=== PATIENT | male | born 1940 | race Caucasian/White ===

== ENCOUNTER → 2019-08-03 09:02 | Outpatient (CLI) | payer MEDICARE, SELFPAY ==
--- NOTE | 2019-08-03 | DI.US.S_ITS ---
PROCEDURE: US RETRO PERITONEAL LIMITED INDICATIONS: AAA TECHNIQUE: Real time scanning was performed of the aorta and iliac arteries, with image documentation. COMPARISON: None. FINDINGS: Aorta: Proximal aortic diameter measures 3.1 x 3 cm. The mid aorta is not seen. Distal aortic diameter is 3.1 by 3.1 cm. Iliac arteries: Right common iliac artery measures 1.6 cm. Left common iliac artery measures 1.6 cm. This study is limited by body habitus. 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 The mid aorta is not seen. Dictated by: Thaddeus Sheldon M.D. on 08/03/2019 at 11:37 Approved by: Thaddeus Sheldon M.D. on 08/03/2019 at 11:40
== END ==
PROVIDERS: Referring Provider Family Medicine; Visit Provider Family Medicine
DX: Z13.6 Encounter for screening for cardiovascular disorders (principal); I71.4 Abdominal aortic aneurysm, without rupture
CPT/HCPCS: 76775

== ENCOUNTER 2021-07-28 08:54 | Inpatient (IN) | payer MEDICARE, SELFPAY ==
[2021-07-28] VITALS (43 sets, daily range): BP systolic 139–218; BP diastolic 65–122; PULSE 58–87; RESP 15–19; TEMP 36.3–37.1; O2SAT 93–99; BMI 31.7; BMI 31.1
--- NOTE | 2021-07-28 09:10 | ED.GENADULT ---
HPI - General Adult General Chief complaint: GI Bleed Stated complaint: Vomiting- looks like coffee grounds Time Seen by Provider: 07/28/21 09:06 Exam Initial Vital Signs Initial Vital Signs: Vital Signs Temperature 98.4 F 07/28/21 09:17 Pulse Rate 62 07/28/21 09:17 Respiratory Rate 16 07/28/21 09:17 Blood Pressure 139/65 07/28/21 09:17 Pulse Oximetry 97 07/28/21 09:17 Oxygen Delivery Method 07/28/21 09:17 Course Orders Ordered: ED Orders 07/28/21 09:21 COVID19 -Nasal RAPID/Pre-Proc Stat Complete Blood Count AUTO DIFF Stat Comprehensive Metabolic Panel Stat Partial Thromboplastin Time Stat Prothrombin Time INR Stat Type and Screen Stat EKG-12 Lead Stat 07/28/21 09:25 COVID19 -Nasal RAPID/Pre-Proc Stat Comprehensive Metabolic Panel Stat Lipase Stat Magnesium Stat NT-proBNP (BNP-Adult 18+) Stat Troponin I Stat Sodium Chloride (Normal Saline 0.9%) 1,000 mls @ 150 mls/hr IV CONT LUISA Discontinued Medications Pantoprazole Sodium (Pantoprazole 40 Mg Vial) 80 mg IV NOW ONE Stop: 07/28/21 09:26 Vital Signs Vital signs: Vital Signs - 8 hr 07/28/21 09:17 Temperature 98.4 F Pulse Rate 62 Respiratory Rate 16 Blood Pressure 139/65 Pulse Oximetry 97 Oxygen Delivery Method Room Air Discharge Plan Departure Referrals: Albert Sanchez DO [Primary Care Provider] -
--- NOTE | 2021-07-28 09:31 | ED.GENADULT ---
HPI - General Adult General Chief complaint: GI Bleed Stated complaint: Vomiting- looks like coffee grounds Time Seen by Provider: 07/28/21 09:06 History of Present Illness HPI narrative: 81-year-old gentleman with a history of coronary artery disease post CABG currently on Plavix, hypertension, hyperlipidemia, diabetes, hypothyroidism presents with complaints of coffee-ground emesis. Pain is reports significant upper respiratory viral symptoms in early May of this year that they assumed was COVID. Both of them recovered appropriately however shortly after that he developed intermittent episodes of vomiting and diarrhea. He will have 3-4 days of symptoms 3-4 days of feeling well. He has been seen by his primary care physician and has an appointment scheduled with outpatient GI on August 06. He has had stool studies, reports 20 lb weight loss since May, last week had a CT scan of the chest abdomen and pelvis done at [facility] that did not show any obvious masses tumors or reasons for his symptoms. He is currently on both Plavix and baby aspirin. Yesterday he noted that he had some dark emesis and this morning had quite a bit more of coffee-ground emesis with an episode of vomiting. He also notes that he has been having loose stools and that they are black. The black stools and coffee-ground emesis are new developments for him over these last months with the intermittent vomiting and diarrhea. Does not report fevers, cough, chills, chest pain, orthopnea or dyspnea. He has had no headaches or neurologic complaints. Today he simply states that he feels weak in his is concerned with the coffee-ground emesis Related Data Home Medications Medication Instructions Recorded Confirmed amlodipine 10 mg tablet (Norvasc) 10 tab PO 1XD 07/28/21 07/28/21 carvedilol 12.5 mg tablet (Coreg) 12.5 tab PO 2XD 07/28/21 07/28/21 clopidogrel 75 mg tablet (Plavix) 75 tab PO 1XD 07/28/21 07/28/21 doxazosin 8 mg tablet (Cardura) 8 tab PO 1XD 07/28/21 07/28/21 dulaglutide 1.5 mg/0.5 mL 1.5 ea SUBCUT WEEKLY 07/28/21 07/28/21 subcutaneous pen injector (Trulicity) furosemide 20 mg tablet (Lasix) 20 tab PO 1XD 07/28/21 07/28/21 insulin glargine 100 unit/mL (3 20 ea SUBCUT 1XD 07/28/21 07/28/21 mL) subcutaneous pen (Lantus Solostar U-100 Insulin) isosorbide mononitrate 30 mg 30 tab PO 1XD 07/28/21 07/28/21 tablet,extended release 24 hr losartan 100 mg tablet 100 tab PO 1XD 07/28/21 07/28/21 metformin 500 mg tablet 500 tab PO 1XD 07/28/21 07/28/21 ondansetron HCl 8 mg tablet 8 tab PO 1-2XD PRN Nausea 07/28/21 07/28/21 pravastatin 80 mg tablet 80 tab PO 1XD 07/28/21 07/28/21 Allergies Allergy/AdvReac Type Severity Reaction Status Date / Time No Known Drug Allergies Allergy Verified 07/28/21 11:31 Review of Systems Review of Systems Narrative: Remainder of complete review of systems is otherwise unremarkable except for that included in the HPI. Patient History Medical History (Updated 07/28/21 @ 09:38 by Cecille Thao MD) Coronary artery disease Hyperlipidemia Hypertension Type 2 diabetes mellitus Surgical History (Updated 07/28/21 @ 09:34 by Cecille Thao MD) History of coronary artery bypass graft x 3 Exam Initial Vital Signs Initial Vital Signs: Vital Signs Temperature 98.4 F 07/28/21 09:17 Pulse Rate 62 07/28/21 09:17 Respiratory Rate 16 07/28/21 09:17 Blood Pressure 139/65 07/28/21 09:17 Pulse Oximetry 97 07/28/21 09:17 Oxygen Delivery Method 07/28/21 09:17 General: Pale and appears fatigued but otherwise in no acute distress. Well-nourished well-developed HEENT: Moist mucous membranes, normal sclera with reactive pupils, Neck: No JVD, supple Respiratory: Lungs are clear to auscultation, no wheezing no rales no rhonchi. Full and symmetrical air movement Cardiac: Regular rate and rhythm no murmurs no bruits Abdomen: Soft, nontender, good bowel tones, no flank pain Skin: Pale, Warm and dry, no rashes Neurologic: Globally weak but Grossly neurologically intact with no obvious asymmetries or abnormalities Extremities: No trauma, well perfused Psych: Cooperative, appropriate insight and affect Course Orders Ordered: ED Orders 07/28/21 09:15 Complete Blood Count AUTO DIFF Stat Comprehensive Metabolic Panel Stat Comprehensive Metabolic Panel Stat Lipase Stat Magnesium Stat NT-proBNP (BNP-Adult 18+) Stat PRBC [Packed Cells] Stat Partial Thromboplastin Time Stat Prothrombin Time INR Stat Troponin I Stat Type and Screen Stat 07/28/21 09:21 EKG-12 Lead Stat 07/28/21 11:14 Consult to Tele-lease analyst Routine 07/28/21 11:17 COVID19 -Nasal RAPID/Pre-Proc Stat 07/28/21 11:22 Consult to Physician Stat 07/28/21 12:23 Consult to General Surgery Stat 07/28/21 14:17 Consult to Physician Stat Carvedilol (Carvedilol 12.5 Mg Tablet) 12.5 mg PO NOW LUISA Dextrose (Dextrose 50 % In Water 25 Gm/50 Ml Syringe) 25 gm IV PRN PRN; Protocol PRN Reason: Hypoglycemia Doxazosin Mesylate (Doxazosin 4 Mg Tablet) 4 mg PO DAILY LUISA Sodium Chloride (Normal Saline 0.9%) 1,000 mls @ 150 mls/hr IV CONT LUISA Last Infusion: 07/28/21 11:10 Dose: 0 mls/hr Documented By: Admin: 07/28/21 10:09 Dose: 150 mls/hr Documented By: CTS Sodium Chloride (Normal Saline 0.9%) 1,000 mls @ 100 mls/hr IV CONT LUISA Insulin Human Lispro (Insulin Lispro 100 Unit/Ml 3ml Vial) 0 unit SUBCUT Q6H LUISA; Protocol Last Admin: 07/28/21 13:54 Dose: Not Given Documented By: AT Isosorbide Mononitrate (Isosorbide Mononitrate 20 Mg Tablet) 30 mg PO 0700 LUISA Pantoprazole Sodium (Pantoprazole 40 Mg Vial) 40 mg IV BID LUISA Pravastatin Sodium (Pravastatin 20 Mg Tablet) 80 mg PO BEDTIME LUISA Discontinued Medications Amlodipine Besylate (Amlodipine 5 Mg Tablet) 10 mg PO NOW ONE Stop: 07/28/21 10:57 Last Admin: 07/28/21 11:32 Dose: 10 mg Documented By: AT Furosemide (Furosemide 40 Mg/4 Ml Vial) 20 mg IV NOW ONE Stop: 07/28/21 10:38 Last Admin: 07/28/21 13:10 Dose: 20 mg Documented By: AT Losartan Potassium (Losartan 50 Mg Tablet) 100 mg PO NOW ONE Stop: 07/28/21 10:57 Last Admin: 07/28/21 11:32 Dose: 100 mg Documented By: AT Pantoprazole Sodium (Pantoprazole 40 Mg Vial) 80 mg IV NOW ONE Stop: 07/28/21 09:26 Last Admin: 07/28/21 10:09 Dose: 80 mg Documented By: CTS Vital Signs Vital signs: Vital Signs - 8 hr 07/28/21 09:17 07/28/21 11:09 07/28/21 09:58 Temperature 98.4 F 97.4 F L Pulse Rate 62 65 59 L Respiratory Rate 16 16 Blood Pressure 139/65 184/107 H Pulse Oximetry 97 97 Oxygen Delivery Method Room Air 07/28/21 09:59 07/28/21 09:59 07/28/21 10:00 Temperature Pulse Rate 59 L Respiratory Rate Blood Pressure 189/75 H 176/72 H Pulse Oximetry 95 Oxygen Delivery Method 07/28/21 10:00 07/28/21 10:30 07/28/21 10:31 Temperature Pulse Rate 61 63 Respiratory Rate Blood Pressure 197/80 H Pulse Oximetry 95 97 Oxygen Delivery Method 07/28/21 10:31 07/28/21 11:00 07/28/21 11:01 Temperature Pulse Rate 60 58 L Respiratory Rate Blood Pressure 184/107 H Pulse Oximetry 95 97 Oxygen Delivery Method 07/28/21 11:01 07/28/21 13:00 07/28/21 11:27 Temperature 97.5 F L 97.5 F L Pulse Rate 59 L 60 60 Respiratory Rate 18 16 Blood Pressure 192/80 H 212/82 H Pulse Oximetry 95 Oxygen Delivery Method 07/28/21 11:29 07/28/21 11:29 07/28/21 11:30 Temperature Pulse Rate 58 L 60 Respiratory Rate Blood Pressure 212/82 H Pulse Oximetry 97 97 Oxygen Delivery Method 07/28/21 12:00 07/28/21 12:01 07/28/21 12:01 Temperature Pulse Rate 60 62 Respiratory Rate Blood Pressure 188/122 H Pulse Oximetry 97 98 Oxygen Delivery Method 07/28/21 12:30 07/28/21 12:31 07/28/21 12:31 Temperature Pulse Rate 58 L 60 Respiratory Rate Blood Pressure 201/79 H Pulse Oximetry 97 98 Oxygen Delivery Method 07/28/21 13:00 07/28/21 13:01 07/28/21 13:01 Temperature Pulse Rate 67 63 Respiratory Rate Blood Pressure 192/80 H Pulse Oximetry 99 98 Oxygen Delivery Method 07/28/21 13:47 07/28/21 14:03 Temperature 98.4 F 97.5 F L Pulse Rate 62 69 Respiratory Rate 16 18 Blood Pressure 178/75 H 179/80 H Pulse Oximetry Oxygen Delivery Method Medical Decision Making Medical Records Medical records narrative: Report of a CT chest abdomen pelvis imaging from 1 week ago has been requested Lab Data Result diagrams: 07/28/21 09:15 07/28/21 09:15 Labs: Lab Results 07/28/21 07/28/21 07/28/21 Range/Units 09:15 09:15 09:15 WBC 16.7 H (4.5-11.0) X10^3/uL RBC 2.64 L (4.5-5.9) X10^6/uL Hgb 7.7 L (13.5-17.5) g/dL Hct 23.3 L (41-53) % MCV 88.1 (80-100) fL MCH 29.1 (26-34) PG MCHC 33.0 (30-36) % RDW 15.1 H (11.6-14.8) % Plt Count 293 (150-400) X10^3/uL Neut % (Auto) 80.9 H (50-75) % Lymph % (Auto) 13.2 L (25-40) % [place] % (Auto) 4.5 (3-14) % Eos % (Auto) 0.4 L (2-4) % Baso % (Auto) 1.0 (0-2) % Neut # (Auto) 59493 H (1411-5111) /uL Lymph # (Auto) 2200 (2228-5951) /uL [place] # (Auto) 700 (0-900) /uL Eos # (Auto) 100 (0-450) /uL Baso # (Auto) 200 H (0-100) /uL PT 12.6 (10.1-12.7) SECONDS INR 1.1 (0.9-1.3) APTT 29 (26.4-36.2) SECONDS Sodium 134 L (137-145) mmol/L Potassium 5.5 H (3.4-5.1) mmol/L Chloride 104 (98-107) mmol/L Carbon Dioxide 22 (22-32) mmol/L BUN 84 H (9-20) mg/dL Creatinine 1.80 H (0.66-1.25) mg/dL Estimated GFR 37 L (>60) mL/min BUN/Creatinine Ratio 46.7 H (6-22) Glucose 215 H (80-110) mg/dL Calcium 8.3 L (8.4-10.2) mg/dL Magnesium (1.6-2.3) mg/dL Total Bilirubin 0.2 (0.2-1.3) mg/dL AST 24 (17-59) IU/L ALT 25 (<50) IU/L Alkaline Phosphatase 72 (38-126) U/L Troponin I (0.01-0.034) ng/mL NT-Pro-B Natriuret Pep (<450) pg/mL Total Protein 5.8 L (6.3-8.2) g/dL Albumin 3.2 L (3.5-5.0) g/dL Globulin 2.6 (1.7-4.1) g/dL Albumin/Globulin Ratio 1.2 (1.0-2.8) Lipase (23-300) U/L SARS-CoV-2 (PCR) (Negative) Blood Type Antibody Screen Crossmatch 07/28/21 07/28/21 07/28/21 Range/Units 09:15 09:15 11:17 WBC (4.5-11.0) X10^3/uL RBC (4.5-5.9) X10^6/uL Hgb (13.5-17.5) g/dL Hct (41-53) % MCV (80-100) fL MCH (26-34) PG MCHC (30-36) % RDW (11.6-14.8) % Plt Count (150-400) X10^3/uL Neut % (Auto) (50-75) % Lymph % (Auto) (25-40) % [place] % (Auto) (3-14) % Eos % (Auto) (2-4) % Baso % (Auto) (0-2) % Neut # (Auto) (4633-8228) /uL Lymph # (Auto) (9253-8533) /uL [place] # (Auto) (0-900) /uL Eos # (Auto) (0-450) /uL Baso # (Auto) (0-100) /uL PT (10.1-12.7) SECONDS INR (0.9-1.3) APTT (26.4-36.2) SECONDS Sodium 133 L (137-145) mmol/L Potassium 5.4 H (3.4-5.1) mmol/L Chloride 104 (98-107) mmol/L Carbon Dioxide 23 (22-32) mmol/L BUN 81 H (9-20) mg/dL Creatinine 1.88 H (0.66-1.25) mg/dL Estimated GFR 35 L (>60) mL/min BUN/Creatinine Ratio 43.1 H (6-22) Glucose 219 H (80-110) mg/dL Calcium 8.3 L (8.4-10.2) mg/dL Magnesium 1.8 (1.6-2.3) mg/dL Total Bilirubin 0.3 (0.2-1.3) mg/dL AST 25 (17-59) IU/L ALT 26 (<50) IU/L Alkaline Phosphatase 72 (38-126) U/L Troponin I 0.016 (0.01-0.034) ng/mL NT-Pro-B Natriuret Pep 2060 H (<450) pg/mL Total Protein 6.4 (6.3-8.2) g/dL Albumin 3.4 L (3.5-5.0) g/dL Globulin 3.0 (1.7-4.1) g/dL Albumin/Globulin Ratio 1.1 (1.0-2.8) Lipase 86 (23-300) U/L SARS-CoV-2 (PCR) Negative (Negative) Blood Type O Positive Antibody Screen Negative Crossmatch See Detail Point of Care Testing Glucose POC 192 Urine Dip Bedside Urine Glucose Negative Bedside Urine Bilirubin - Negative Bedside Urine Ketone - Negative Urine Specific [place] 1.015 Bedside Urine Occult Blood - Negative Bedside Urine pH 6.0 Bedside Urine Protein - Negative Bedside Urine Urobilinogen - Negative Bedside Urine Nitrite - Negative Bedside Urine Leukocytes - Negative Esterase Point of care testing: Point of Care Testing Glucose POC 192 Urine Dip Bedside Urine Glucose Negative Bedside Urine Bilirubin - Negative Bedside Urine Ketone - Negative Urine Specific [place] 1.015 Bedside Urine Occult Blood - Negative Bedside Urine pH 6.0 Bedside Urine Protein - Negative Bedside Urine Urobilinogen - Negative Bedside Urine Nitrite - Negative Bedside Urine Leukocytes - Negative Esterase ECG Data Interpretation: Sinus bradycardia at 59. Right bundle branch block, left anterior fascicular block, left axis deviation, No acute ischemic changes MDM Narrative Medical decision making narrative: 9:50 am care is reviewed with Dr. Flores surgeon. Initial H&H is 7.7 and 23.3. Given his continued bleeding as well as known coronary disease post bypass will opt to transfuse with 2 units. 11am remainder a labs or turn. He does have renal insufficiency with a creatinine at 1.88, it is unclear if this is new. Eron is slightly elevated at 5.4. Will be getting Lasix in between 2 units of packed red blood cells and will see if that reduces his potassium level. He remains relatively hypertensive at this time has not taken his morning amlodipine nor tamsulosin. Given his significant baseline hypertension and absence of hemodynamic instability in light of his upper GI bleed will give him his amlodipine and tamsulosin. Will discuss his care with the hospitalist for admission. Discharge Plan Departure Patient Disposition: Admitted As Inpatient Clinical Impression: Acute upper gastrointestinal bleeding Admit Date/Time: 07/28/21 14:20 Admit Provider: Filiberto Borja
[2021-07-28 09:41] LABS: Add Manual Diff / Slide Review NO; Basophils Absolute Auto 200 /uL (0-100); Eosinophils Absolute Auto 100 /uL (0-450); Eosinophils Percent Auto 0.4 % (2-4); Hematocrit 23.3 % (41-53); Hemoglobin 7.7 g/dL (13.5-17.5); Lymphocytes Absolute Auto 2200 /uL (1100-4500); Lymphocytes Percent Auto 13.2 % (25-40); Mean Corpuscular Hemoglobin 29.1 PG (26-34); Mean Corpuscular Volume 88.1 fL (80-100); Monocytes Absolute Auto 700 /uL (0-900); Monocytes Percent Auto 4.5 % (3-14); Neutrophils Absolute Auto 13500 /uL (1500-7000); Neutrophils Percent Auto 80.9 % (50-75); Platelet Count 293 X10^3/uL (150-400); Red Blood Cell Count 2.64 X10^6/uL (4.5-5.9); Red Cell Distribution Width 15.1 % (11.6-14.8); White Blood Cell Count 16.7 X10^3/uL (4.5-11.0)
[2021-07-28 09:52] LABS: INR 1.1 (0.9-1.3); Prothrombin Time 12.6 SECONDS (10.1-12.7)
[2021-07-28 09:55] LABS: PTT Partial Thromboplastin Tim 29 SECONDS (26.4-36.2)
[2021-07-28 09:57] LABS: Alanine Aminotransferase 26 IU/L (<50); Albumin 3.4 g/dL (3.5-5.0); Albumin Globulin Ratio 1.1 (1.0-2.8); Alkaline Phosphatase 72 U/L (38-126); Aspartate Aminotransferase 25 IU/L (17-59); BUN Creatinine Ratio 43.1 (6-22); Bilirubin Total 0.3 mg/dL (0.2-1.3); Blood Urea Nitrogen 81 mg/dL (9-20); Calcium 8.3 mg/dL (8.4-10.2); Carbon Dioxide 23 mmol/L (22-32); Chloride 104 mmol/L (98-107); Estimated Glomerular Filt Rate 35 mL/min (>60); Glucose 219 mg/dL (80-110); HEMOLYSIS < 15 (0-50); Lipase 86 U/L (23-300); Magnesium 1.8 mg/dL (1.6-2.3); Sodium 133 mmol/L (137-145); Total Protein 6.4 g/dL (6.3-8.2)
[2021-07-28 09:58] LABS: Alanine Aminotransferase 25 IU/L (<50); Albumin 3.2 g/dL (3.5-5.0); Albumin Globulin Ratio 1.2 (1.0-2.8); Alkaline Phosphatase 72 U/L (38-126); Aspartate Aminotransferase 24 IU/L (17-59); BUN Creatinine Ratio 46.7 (6-22); Bilirubin Total 0.2 mg/dL (0.2-1.3); Blood Urea Nitrogen 84 mg/dL (9-20); Calcium 8.3 mg/dL (8.4-10.2); Carbon Dioxide 22 mmol/L (22-32); Chloride 104 mmol/L (98-107); Estimated Glomerular Filt Rate 37 mL/min (>60); Globulin 2.6 g/dL (1.7-4.1); Glucose 215 mg/dL (80-110); HEMOLYSIS < 15 (0-50); Potassium 5.4 mmol/L (3.4-5.1); Potassium 5.5 mmol/L (3.4-5.1); Sodium 134 mmol/L (137-145); Total Protein 5.8 g/dL (6.3-8.2)
[2021-07-28 10:08] LABS: NT-proBNP (BNP-Adult 18+) 2060 pg/mL (<450); Troponin I 0.016 ng/mL (0.01-0.034)
[2021-07-28] MEDS: PANTOPRAZOLE 40 MG VIAL 80 MG IV (10:09)
[2021-07-28] MEDS: SODIUM CHLORIDE 0.9% 1,000 ML 150 ML IV (10:09)
[2021-07-28] MEDS: LOSARTAN 50 MG TABLET 100 MG PO (11:32)
[2021-07-28] MEDS: AMLODIPINE 5 MG TABLET 10 MG PO (11:32)
[2021-07-28 11:36] LABS: COVID19 -Nasal RAPID Negative (Negative)
[2021-07-28] MEDS: FUROSEMIDE 40 MG/4 ML VIAL 20 MG IV (13:10)
--- NOTE | 2021-07-28 14:05 | PM.HP.1 ---
History of Present Illness History of Present Illness Chief complaint: Vomiting- looks like coffee grounds Narrative: CC : coffee ground emesis The patient is 81 y/o male with multiple comorbidities including : CAD, s/p CABG and stent ( 20 and 10 y/ago) on Plavix, HTN, HLD, DM type 2 on insulin, CHF systolic , etc presented to ER with cofee ground emesis this morning. Per him and at bedside he is having GI problems sicne May 2021, he lost 20+ lbs since then and has been done extensive w/u by PCP to r/o pancreatic cancer and other etiologies. His recent bryan CT did not show abnormalities, he has scheduled GI appointment for week from now. 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 They brought this coffee ground emesis in bag to show ER physician. Since he is in ER he did NOT have any other episodes of emesis or diarrhea , black stools etc. He denes abdominal pain, nausea, chest pain,fever, shortness of breath, recent g or sick contacts Patient History Medical History (Updated 07/28/21 @ 09:38 by Cecille Thao MD) Coronary artery disease Hyperlipidemia Hypertension Type 2 diabetes mellitus Surgical History (Updated 07/28/21 @ 09:34 by Cecille Thao MD) History of coronary artery bypass graft x 3 Family & Social History Safety & Behavioral: Feels Safe in Current Yes Environment Been Physically Hurt or No Threatened By a Person Meds Home Medications and Allergies Home Medications Medication Instructions Recorded Confirmed Type amlodipine 10 mg tablet (Norvasc) 10 tab PO 1XD 07/28/21 07/28/21 History carvedilol 12.5 mg tablet (Coreg) 12.5 tab PO 2XD 07/28/21 07/28/21 History clopidogrel 75 mg tablet (Plavix) 75 tab PO 1XD 07/28/21 07/28/21 History doxazosin 8 mg tablet (Cardura) 8 tab PO 1XD 07/28/21 07/28/21 History dulaglutide 1.5 mg/0.5 mL 1.5 ea SUBCUT WEEKLY 07/28/21 07/28/21 History subcutaneous pen injector (Trulicity) furosemide 20 mg tablet (Lasix) 20 tab PO 1XD 07/28/21 07/28/21 History insulin glargine 100 unit/mL (3 20 ea SUBCUT 1XD 07/28/21 07/28/21 History mL) subcutaneous pen (Lantus Solostar U-100 Insulin) isosorbide mononitrate 30 mg 30 tab PO 1XD 07/28/21 07/28/21 History tablet,extended release 24 hr losartan 100 mg tablet 100 tab PO 1XD 07/28/21 07/28/21 History metformin 500 mg tablet 500 tab PO 1XD 07/28/21 07/28/21 History ondansetron HCl 8 mg tablet 8 tab PO 1-2XD PRN Nausea 07/28/21 07/28/21 History pravastatin 80 mg tablet 80 tab PO 1XD 07/28/21 07/28/21 History Allergies Allergy/AdvReac Type Severity Reaction Status Date / Time No Known Drug Allergies Allergy Verified 07/28/21 11:31 Review of Systems Review of Systems ROS: Yes All systems reviewed with the patient and are negative except as otherwise documented Eyes Eyes: Reports as per HPI ENT Ears, Nose, Mouth, and Throat: Yes as per HPI Cardiovascular Cardiovascular: Reports as per HPI Respiratory Respiratory: Reports as per HPI Gastrointestinal Gastrointestinal: Reports as per HPI Genitourinary Genitourinary: Reports as per HPI Musculoskeletal Musculoskeletal: Reports as per HPI Integumentary/Breasts Skin/Breast: Reports as per HPI Neurologic Neurologic: Reports as per HPI Psychiatric Psychiatric: Reports as per HPI Exam Vital Signs (past 8 hours): - 07/28/21 09:17 07/28/21 11:09 07/28/21 09:58 Temperature 98.4 F 97.4 F L Pulse Rate 62 65 59 L Respiratory Rate 16 16 Blood Pressure 139/65 184/107 H Pulse Oximetry 97 97 Oxygen Delivery Method Room Air 07/28/21 09:59 07/28/21 09:59 07/28/21 10:00 Temperature Pulse Rate 59 L Respiratory Rate Blood Pressure 189/75 H 176/72 H Pulse Oximetry 95 Oxygen Delivery Method 07/28/21 10:00 07/28/21 10:30 07/28/21 10:31 Temperature Pulse Rate 61 63 Respiratory Rate Blood Pressure 197/80 H Pulse Oximetry 95 97 Oxygen Delivery Method 07/28/21 10:31 07/28/21 11:00 07/28/21 11:01 Temperature Pulse Rate 60 58 L Respiratory Rate Blood Pressure 184/107 H Pulse Oximetry 95 97 Oxygen Delivery Method 07/28/21 11:01 07/28/21 13:00 07/28/21 11:27 Temperature 97.5 F L 97.5 F L Pulse Rate 59 L 60 60 Respiratory Rate 18 16 Blood Pressure 192/80 H 212/82 H Pulse Oximetry 95 Oxygen Delivery Method 07/28/21 11:29 07/28/21 11:29 07/28/21 11:30 Temperature Pulse Rate 58 L 60 Respiratory Rate Blood Pressure 212/82 H Pulse Oximetry 97 97 Oxygen Delivery Method 07/28/21 12:00 07/28/21 12:01 07/28/21 12:01 Temperature Pulse Rate 60 62 Respiratory Rate Blood Pressure 188/122 H Pulse Oximetry 97 98 Oxygen Delivery Method 07/28/21 12:30 07/28/21 12:31 07/28/21 12:31 Temperature Pulse Rate 58 L 60 Respiratory Rate Blood Pressure 201/79 H Pulse Oximetry 97 98 Oxygen Delivery Method 07/28/21 13:00 07/28/21 13:01 07/28/21 13:01 Temperature Pulse Rate 67 63 Respiratory Rate Blood Pressure 192/80 H Pulse Oximetry 99 98 Oxygen Delivery Method 07/28/21 13:47 Temperature 98.4 F Pulse Rate 62 Respiratory Rate 16 Blood Pressure 178/75 H Pulse Oximetry Oxygen Delivery Method Oxygen Delivery Method Room Air Const General: cooperative and well developed Orientation: alert, awake and oriented x3 HENMT Head: normocephalic and atraumatic Ears: external ears normal Nose: external nose normal Mouth: oral mucosae normal Eyes Pupils: PERRL EOM: EOM intact bilaterally Neck Neck: full ROM and supple Thyroid: thyroid normal Chest Chest: normal inspection of the chest Resp Auscultation: clear to auscultation bilaterally Cardio Rate: regular rate Rhythm: regular rhythm GI Inspection: normal to inspection Palpation: soft and No tender Auscultation: normal bowel sounds Back/Spine/Pelvis Back: normal to inspection Skin General: no rashes or lesions noted Neuro General: patient alert, patient awake, patient oriented x3, gait normal, moves all extremities and no focal motor deficits Cranial Nerves: CN's II-XI intact bilaterally Extrem General: normal to inspection, full ROM and no clubbing, cyanosis or edema Psych Mental Status: mental status grossly normal Mood: congruent mood Affect: normal affect Objective Labs Result Diagrams: 07/28/21 09:15 07/28/21 09:15 Labs: Laboratory Results - last 24 hr 07/28/21 07/28/21 07/28/21 09:15 09:15 09:15 WBC 16.7 H RBC 2.64 L Hgb 7.7 L Hct 23.3 L MCV 88.1 MCH 29.1 MCHC 33.0 RDW 15.1 H Plt Count 293 Neut % (Auto) 80.9 H Lymph % (Auto) 13.2 L [place] % (Auto) 4.5 Eos % (Auto) 0.4 L Baso % (Auto) 1.0 Neut # (Auto) 23039 H Lymph # (Auto) 2200 [place] # (Auto) 700 Eos # (Auto) 100 Baso # (Auto) 200 H PT 12.6 INR 1.1 APTT 29 Sodium 134 L Potassium 5.5 H Chloride 104 Carbon Dioxide 22 BUN 84 H Creatinine 1.80 H Estimated GFR 37 L BUN/Creatinine Ratio 46.7 H Glucose 215 H Calcium 8.3 L Magnesium Total Bilirubin 0.2 AST 24 ALT 25 Alkaline Phosphatase 72 Troponin I NT-Pro-B Natriuret Pep Total Protein 5.8 L Albumin 3.2 L Globulin 2.6 Albumin/Globulin Ratio 1.2 Lipase SARS-CoV-2 (PCR) Blood Type Antibody Screen Crossmatch 07/28/21 07/28/21 07/28/21 09:15 09:15 11:17 WBC RBC Hgb Hct MCV MCH MCHC RDW Plt Count Neut % (Auto) Lymph % (Auto) [place] % (Auto) Eos % (Auto) Baso % (Auto) Neut # (Auto) Lymph # (Auto) [place] # (Auto) Eos # (Auto) Baso # (Auto) PT INR APTT Sodium 133 L Potassium 5.4 H Chloride 104 Carbon Dioxide 23 BUN 81 H Creatinine 1.88 H Estimated GFR 35 L BUN/Creatinine Ratio 43.1 H Glucose 219 H Calcium 8.3 L Magnesium 1.8 Total Bilirubin 0.3 AST 25 ALT 26 Alkaline Phosphatase 72 Troponin I 0.016 NT-Pro-B Natriuret Pep 2060 H Total Protein 6.4 Albumin 3.4 L Globulin 3.0 Albumin/Globulin Ratio 1.1 Lipase 86 SARS-CoV-2 (PCR) Negative Blood Type O Positive Antibody Screen Negative Crossmatch See Detail Assessment & Plan Assessment & Plan narrative: Acute blood loss anemia HGB 7.7 -given 2 units PRBC in ER - continue close monitoring -transfuse if 7 or below -CBC daily Possible GI bleeding -surgery evaluation is pending -surgery notifies by ER physician - pantorpazole IV BID CAD, s/p CABG, s/p stent -telemetry monirtoring - continue BB, stopped plavix CHF systolic -continue ISMN - hold on diauresis HTN -mildly elevated -continue home meds Hyperlipidemia -continue statin DM type 2 -SSI -holding on metformin DVT prophylaxis: SCD Code status: full Discussed in details with ER physician, pt, at bedside Time Spent With Patient Critical Care time: I spent a total of [] minutes of critical care time on this patient's care today; this time is exclusive of procedural time.
--- NOTE | 2021-07-28 17:16 | PM.CALLCOV.1 ---
Call Coverage Note Note Date of Patient Contact: 07/28/21 Narrative of Care Provided: aware of patient and will schedule for EGD Thursday
[2021-07-28] MEDS: SODIUM CHLORIDE 0.9% 1,000 ML 100 ML IV (18:48)
--- NOTE | 2021-07-28 20:48 | PM.CN.EICU ---
History of Present Illness Consult details Chief complaint: Vomiting- looks like coffee grounds Narrative: ?81 y/o male with medical H/o of CHF, CAD s/p CABG and stents on Plavix, HTN, HLD, IDDM, presented to ER with coffee ground emesis yesterday, he has H/o of Wt loss and undergo an extensive work up for malignancy by his PCP, was scheduled to see GI this week. Last emesis episode was black in color. Denies any complain, no abdominal pain. Assessment: Upper GI bleed while on Plavix Acute blood loss anemia H/o of CAD s/p CABG and stents Rec: Continue IV PPI & holding plavix Plan for EGD in am/ Keep NPO except meds No indication for more Blood transfusion Check CBC, CMP, Coags in Am HD stable, BP normal while on antihypertensive SBP was 140 Consider holding some of the antihypertensive if BP softens DVT ppx SCD PFSH Medical History (Updated 07/28/21 @ 09:38 by Cecille Thao MD) Coronary artery disease Hyperlipidemia Hypertension Type 2 diabetes mellitus Surgical History (Updated 07/28/21 @ 09:34 by Cecille Thao MD) History of coronary artery bypass graft x 3 Social History household members: spouse Smoking Status: Former smoker alcohol intake: never Current Medications Current Medications Medications: Home Medications amlodipine 10 mg tablet (Norvasc) 10 tab PO 1XD 07/28/21 [History Confirmed 07/28/21] carvedilol 12.5 mg tablet (Coreg) 12.5 tab PO 2XD 07/28/21 [History Confirmed 07/28/21] clopidogrel 75 mg tablet (Plavix) 75 tab PO 1XD 07/28/21 [History Confirmed 07/28/21] doxazosin 8 mg tablet (Cardura) 8 tab PO 1XD 07/28/21 [History Confirmed 07/28/21] dulaglutide 1.5 mg/0.5 mL subcutaneous pen injector (Trulicity) 1.5 ea SUBCUT WEEKLY 07/28/21 [History Confirmed 07/28/21] furosemide 20 mg tablet (Lasix) 20 tab PO 1XD 07/28/21 [History Confirmed 07/28/21] insulin glargine 100 unit/mL (3 mL) subcutaneous pen (Lantus Solostar U-100 Insulin) 20 ea SUBCUT 1XD 07/28/21 [History Confirmed 07/28/21] isosorbide mononitrate 30 mg tablet,extended release 24 hr 30 tab PO 1XD 07/28/21 [History Confirmed 07/28/21] losartan 100 mg tablet 100 tab PO 1XD 07/28/21 [History Confirmed 07/28/21] metformin 500 mg tablet 500 tab PO 1XD 07/28/21 [History Confirmed 07/28/21] ondansetron HCl 8 mg tablet 8 tab PO 1-2XD PRN Nausea 07/28/21 [History Confirmed 07/28/21] pravastatin 80 mg tablet 80 tab PO 1XD 07/28/21 [History Confirmed 07/28/21] Visit Medications (administered) Generic Name Dose Route Start Last Admin Trade Name Freq PRN Reason Stop Dose Admin Insulin Human Lispro 0 unit 07/28/21 11:30 07/28/21 18:42 Insulin Lispro 100 Unit/Ml 3ml Vial SUBCUT Not Given Q6H [facility] Protocol Exam Vital Signs (past 8 hours): - 07/28/21 13:00 07/28/21 13:00 07/28/21 13:01 Temperature 97.5 F L Pulse Rate 60 67 Respiratory Rate 18 Blood Pressure 192/80 H 192/80 H Pulse Oximetry 99 Oxygen Delivery Method Oxygen Flow Rate 07/28/21 13:01 07/28/21 13:47 07/28/21 14:03 Temperature 98.4 F 97.5 F L Pulse Rate 63 62 69 Respiratory Rate 16 18 Blood Pressure 178/75 H 179/80 H Pulse Oximetry 98 Oxygen Delivery Method Oxygen Flow Rate 07/28/21 15:44 07/28/21 13:30 07/28/21 13:31 Temperature 98.3 F Pulse Rate 62 63 Respiratory Rate 16 Blood Pressure 192/82 H 206/81 H Pulse Oximetry 97 Oxygen Delivery Method Oxygen Flow Rate 07/28/21 13:31 07/28/21 13:44 07/28/21 13:44 Temperature Pulse Rate 61 66 Respiratory Rate Blood Pressure 178/75 H Pulse Oximetry 96 97 Oxygen Delivery Method Oxygen Flow Rate 07/28/21 14:00 07/28/21 14:01 07/28/21 14:01 Temperature Pulse Rate 68 87 Respiratory Rate Blood Pressure 179/80 H Pulse Oximetry 98 99 Oxygen Delivery Method Oxygen Flow Rate 07/28/21 14:30 07/28/21 14:31 07/28/21 14:31 Temperature Pulse Rate 67 66 Respiratory Rate Blood Pressure 171/73 H Pulse Oximetry 96 96 Oxygen Delivery Method Oxygen Flow Rate 07/28/21 15:00 07/28/21 15:01 07/28/21 15:01 Temperature Pulse Rate 64 64 Respiratory Rate Blood Pressure 218/84 H Pulse Oximetry 94 95 Oxygen Delivery Method Oxygen Flow Rate 07/28/21 15:30 07/28/21 15:31 07/28/21 15:40 Temperature Pulse Rate 66 65 64 Respiratory Rate Blood Pressure Pulse Oximetry 96 97 96 Oxygen Delivery Method Oxygen Flow Rate 07/28/21 15:40 07/28/21 16:00 07/28/21 16:01 Temperature Pulse Rate 61 62 Respiratory Rate Blood Pressure 192/82 H Pulse Oximetry 94 96 Oxygen Delivery Method Oxygen Flow Rate 07/28/21 16:01 07/28/21 16:30 07/28/21 16:31 Temperature Pulse Rate 63 Respiratory Rate Blood Pressure 187/78 H 185/78 H Pulse Oximetry 94 Oxygen Delivery Method Oxygen Flow Rate 07/28/21 16:31 07/28/21 17:00 07/28/21 17:01 Temperature Pulse Rate 64 62 Respiratory Rate Blood Pressure 188/74 H Pulse Oximetry 95 93 Oxygen Delivery Method Oxygen Flow Rate 07/28/21 17:01 07/28/21 17:30 07/28/21 17:31 Temperature Pulse Rate 67 66 65 Respiratory Rate Blood Pressure Pulse Oximetry 95 94 95 Oxygen Delivery Method Room Air Oxygen Flow Rate 07/28/21 17:31 07/28/21 18:22 Temperature 98.4 F Pulse Rate 68 Respiratory Rate 19 Blood Pressure 168/74 H 171/73 H Pulse Oximetry 98 Oxygen Delivery Method Oxygen Flow Rate 0 Oxygen Delivery Method Room Air Oxygen Flow Rate 0 Objective Labs Result Diagrams: 07/28/21 09:15 07/28/21 09:15 Labs: Laboratory Results - last 24 hr 07/28/21 07/28/21 07/28/21 09:15 09:15 09:15 WBC 16.7 H RBC 2.64 L Hgb 7.7 L Hct 23.3 L MCV 88.1 MCH 29.1 MCHC 33.0 RDW 15.1 H Plt Count 293 Neut % (Auto) 80.9 H Lymph % (Auto) 13.2 L [place] % (Auto) 4.5 Eos % (Auto) 0.4 L Baso % (Auto) 1.0 Neut # (Auto) 01598 H Lymph # (Auto) 2200 [place] # (Auto) 700 Eos # (Auto) 100 Baso # (Auto) 200 H PT 12.6 INR 1.1 APTT 29 Sodium 134 L Potassium 5.5 H Chloride 104 Carbon Dioxide 22 BUN 84 H Creatinine 1.80 H Estimated GFR 37 L BUN/Creatinine Ratio 46.7 H Glucose 215 H Calcium 8.3 L Magnesium Total Bilirubin 0.2 AST 24 ALT 25 Alkaline Phosphatase 72 Troponin I NT-Pro-B Natriuret Pep Total Protein 5.8 L Albumin 3.2 L Globulin 2.6 Albumin/Globulin Ratio 1.2 Lipase SARS-CoV-2 (PCR) Blood Type Antibody Screen Crossmatch 07/28/21 07/28/21 07/28/21 09:15 09:15 11:17 WBC RBC Hgb Hct MCV MCH MCHC RDW Plt Count Neut % (Auto) Lymph % (Auto) [place] % (Auto) Eos % (Auto) Baso % (Auto) Neut # (Auto) Lymph # (Auto) [place] # (Auto) Eos # (Auto) Baso # (Auto) PT INR APTT Sodium 133 L Potassium 5.4 H Chloride 104 Carbon Dioxide 23 BUN 81 H Creatinine 1.88 H Estimated GFR 35 L BUN/Creatinine Ratio 43.1 H Glucose 219 H Calcium 8.3 L Magnesium 1.8 Total Bilirubin 0.3 AST 25 ALT 26 Alkaline Phosphatase 72 Troponin I 0.016 NT-Pro-B Natriuret Pep 2060 H Total Protein 6.4 Albumin 3.4 L Globulin 3.0 Albumin/Globulin Ratio 1.1 Lipase 86 SARS-CoV-2 (PCR) Negative Blood Type O Positive Antibody Screen Negative Crossmatch See Detail Assessment & Plan Time Spent With Patient Critical Care time: I spent a total of [] minutes of critical care time on this patient's care today; this time is exclusive of procedural time.
[2021-07-28] MEDS: PRAVASTATIN 20 MG TABLET 80 MG PO (21:31)
[2021-07-28] MEDS: PANTOPRAZOLE 40 MG VIAL IV (21:32)
[2021-07-29] VITALS (15 sets, daily range): BP systolic 115–190; BP diastolic 39–84; PULSE 57–77; RESP 15–19; TEMP 36.2–36.8; O2SAT 90–98; BMI 31.1
--- NOTE | 2021-07-29 | PATH_ITS ---
[facility] Accession Number: [id number] . 01 Material submitted: . stomach - PYLORIC MUCOSA . 01 Diagnosis: Stomach, Pyloric Mucosae, Biopsy: Body-type mucosa with mild chronic inflammation. Negative for Helicobacter by immunohistochemistry. Negative for intestinal metaplasia. Negative for dysplasia and malignancy. MRV 08/01/2021 1425 Local . 01 Electronically signed: . Niharika Wallace MD, Pathologist NPI- [id number] . 01 Gross description: . PYLORIC MUCOSA: Received in formalin is 1 fragment(s) of chen, soft tissue measuring 0.3 x 0.3 x 0.2 cm submitted entirely in 1 cassette(s) /CPE 07/30/2021 0512 Local . 01 Microscopic: . An immunohistochemical stain was performed to evaluate for Helicobacter organisms and is negative. The control stain showed appropriate reactivity. . * This test was developed and its performance characteristics determined by [facility]. It has not been cleared or approved by the U.S. Food and Drug Administration. The FDA has determined that such clearance or approval is not necessary. This test is used for clinical purposes. It should not be regarded as investigational or for research. . 01 Pathologist provided ICD-10: R10.9 . 01 CPT . 421635, [id number] Specimen Comment: A courtesy copy of this report has been sent to [phone] Performed at: 01 [facility] [address] [place] [address], [place], [place] [id number] MD Baljinder France MD Phone: [phone]
--- NOTE | 2021-07-29 02:01 | PC.NURSE ---
Pt. vomited 600 ml of brown/green fluid. Pt.states that he actually felt better after he vomited. Pt. denies pain and is NPO for EGD today.
[2021-07-29] MEDS: ONDANSETRON 4 MG/2 ML INJ IV ×2 (03:02→10:10)
[2021-07-29 04:59] LABS: INR 1.1 (0.9-1.3); Prothrombin Time 12.7 SECONDS (10.1-12.7)
[2021-07-29 05:00] LABS: Add Manual Diff / Slide Review NO; Basophils Absolute Auto 100 /uL (0-100); Basophils Percent Auto 0.4 % (0-2); Eosinophils Absolute Auto 100 /uL (0-450); Eosinophils Percent Auto 0.4 % (2-4); Hemoglobin 9.1 g/dL (13.5-17.5); Lymphocytes Absolute Auto 1800 /uL (1100-4500); Lymphocytes Percent Auto 10.2 % (25-40); Mean Corpuscular HGB Conc 33.9 % (30-36); Mean Corpuscular Hemoglobin 29.3 PG (26-34); Mean Corpuscular Volume 86.4 fL (80-100); Monocytes Absolute Auto 1400 /uL (0-900); Monocytes Percent Auto 7.8 % (3-14); Neutrophils Absolute Auto 14300 /uL (1500-7000); Neutrophils Percent Auto 81.2 % (50-75); Platelet Count 290 X10^3/uL (150-400); Red Blood Cell Count 3.12 X10^6/uL (4.5-5.9); Red Cell Distribution Width 15.2 % (11.6-14.8); White Blood Cell Count 17.7 X10^3/uL (4.5-11.0)
[2021-07-29 05:08] LABS: BUN Creatinine Ratio 35.2 (6-22); Blood Urea Nitrogen 63 mg/dL (9-20); Calcium 8.4 mg/dL (8.4-10.2); Carbon Dioxide 22 mmol/L (22-32); Chloride 103 mmol/L (98-107); Estimated Glomerular Filt Rate 37 mL/min (>60); Glucose 198 mg/dL (80-110); HEMOLYSIS < 15 (0-50); Magnesium 1.9 mg/dL (1.6-2.3); Potassium 4.5 mmol/L (3.4-5.1); Sodium 134 mmol/L (137-145)
[2021-07-29 05:19] LABS: Hematocrit 26.9 % (41-53)
[2021-07-29] MEDS: INSULIN LISPRO 100 UNIT/ML 3ML VIAL SUBCUT ×2 (06:38→23:59)
--- NOTE | 2021-07-29 08:46 | P.CONS_ITS ---
History of Present Illness Consult details Date Patient Seen: 07/29/21 Time Patient Seen: 08:46 Chief complaint: Vomiting- looks like coffee grounds Reason for consult: Upper GI bleed Narrative: Admitted for severe anemia and coffee ground emesis. Is on Plavix. Has been transfused 2 units PRBC. Feeling unwell recently. Normal full body CT scan last week. Last colonoscopy 2016 Meds Home Medications and Allergies Home Medications Medication Instructions Recorded Confirmed Type amlodipine 10 mg tablet (Norvasc) 10 tab PO 1XD 07/28/21 07/28/21 History carvedilol 12.5 mg tablet (Coreg) 12.5 tab PO 2XD 07/28/21 07/28/21 History clopidogrel 75 mg tablet (Plavix) 75 tab PO 1XD 07/28/21 07/28/21 History doxazosin 8 mg tablet (Cardura) 8 tab PO 1XD 07/28/21 07/28/21 History dulaglutide 1.5 mg/0.5 mL 1.5 ea SUBCUT WEEKLY 07/28/21 07/28/21 History subcutaneous pen injector (Trulicity) furosemide 20 mg tablet (Lasix) 20 tab PO 1XD 07/28/21 07/28/21 History insulin glargine 100 unit/mL (3 20 ea SUBCUT 1XD 07/28/21 07/28/21 History mL) subcutaneous pen (Lantus Solostar U-100 Insulin) isosorbide mononitrate 30 mg 30 tab PO 1XD 07/28/21 07/28/21 History tablet,extended release 24 hr losartan 100 mg tablet 100 tab PO 1XD 07/28/21 07/28/21 History metformin 500 mg tablet 500 tab PO 1XD 07/28/21 07/28/21 History ondansetron HCl 8 mg tablet 8 tab PO 1-2XD PRN Nausea 07/28/21 07/28/21 History pravastatin 80 mg tablet 80 tab PO 1XD 07/28/21 07/28/21 History Allergies Allergy/AdvReac Type Severity Reaction Status Date / Time No Known Drug Allergies Allergy Verified 07/28/21 11:31 Review of Systems Review of Systems ROS: Yes All systems reviewed with the patient and are negative except as otherwise documented Exam Vital Signs (past 8 hours): - 07/29/21 04:00 07/29/21 07:37 07/29/21 07:45 Temperature 98.0 F 97.5 F L Pulse Rate 68 65 Respiratory Rate 15 16 Blood Pressure 156/67 H 137/62 Pulse Oximetry 96 95 96 Oxygen Delivery Method Room Air Room Air 07/29/21 07:30 Temperature 97.2 F L Pulse Rate 77 Respiratory Rate 18 Blood Pressure 115/58 L Pulse Oximetry 98 Oxygen Delivery Method Oxygen Delivery Method Room Air Oxygen Flow Rate 0 Const General: cooperative, comfortable and frail appearing Nutritional Appearance: overweight HENMT Head: normal to inspection and atraumatic Face and sinus: normal facial exam Eyes Conjunctivae: conjunctivae normal Sclera: sclerae normal Neck Neck: trachea midline Chest Chest: normal inspection of the chest Resp Effort & Inspection: normal respiratory effort and able to speak in complete sentences Cardio Rate: regular rate Rhythm: abnormal rhythm GI Inspection: normal to inspection Palpation: soft Skin General: atrophy, dry skin and ecchymosis Neuro General: patient alert, patient awake and patient oriented x3 Cognition: normal cognition Speech: speech normal Psych Appearance: grossly normal Affect: normal affect Judgment: judgment good Objective Labs Result Diagrams: 07/29/21 04:40 07/29/21 04:40 Labs: Laboratory Results - last 24 hr 07/28/21 07/28/21 07/28/21 09:15 09:15 09:15 WBC 16.7 H RBC 2.64 L Hgb 7.7 L Hct 23.3 L MCV 88.1 MCH 29.1 MCHC 33.0 RDW 15.1 H Plt Count 293 Neut % (Auto) 80.9 H Lymph % (Auto) 13.2 L [place] % (Auto) 4.5 Eos % (Auto) 0.4 L Baso % (Auto) 1.0 Neut # (Auto) 09956 H Lymph # (Auto) 2200 [place] # (Auto) 700 Eos # (Auto) 100 Baso # (Auto) 200 H PT 12.6 INR 1.1 APTT 29 Sodium 134 L Potassium 5.5 H Chloride 104 Carbon Dioxide 22 BUN 84 H Creatinine 1.80 H Estimated GFR 37 L BUN/Creatinine Ratio 46.7 H Glucose 215 H Calcium 8.3 L Magnesium Total Bilirubin 0.2 AST 24 ALT 25 Alkaline Phosphatase 72 Troponin I NT-Pro-B Natriuret Pep Total Protein 5.8 L Albumin 3.2 L Globulin 2.6 Albumin/Globulin Ratio 1.2 Lipase Nasal Screen MRSA (PCR) SARS-CoV-2 (PCR) Blood Type Antibody Screen Crossmatch 07/28/21 07/28/21 07/28/21 09:15 09:15 11:17 WBC RBC Hgb Hct MCV MCH MCHC RDW Plt Count Neut % (Auto) Lymph % (Auto) [place] % (Auto) Eos % (Auto) Baso % (Auto) Neut # (Auto) Lymph # (Auto) [place] # (Auto) Eos # (Auto) Baso # (Auto) PT INR APTT Sodium 133 L Potassium 5.4 H Chloride 104 Carbon Dioxide 23 BUN 81 H Creatinine 1.88 H Estimated GFR 35 L BUN/Creatinine Ratio 43.1 H Glucose 219 H Calcium 8.3 L Magnesium 1.8 Total Bilirubin 0.3 AST 25 ALT 26 Alkaline Phosphatase 72 Troponin I 0.016 NT-Pro-B Natriuret Pep 2060 H Total Protein 6.4 Albumin 3.4 L Globulin 3.0 Albumin/Globulin Ratio 1.1 Lipase 86 Nasal Screen MRSA (PCR) SARS-CoV-2 (PCR) Negative Blood Type O Positive Antibody Screen Negative Crossmatch See Detail 07/28/21 07/29/21 07/29/21 18:43 04:40 04:40 WBC 17.7 H RBC 3.12 L Hgb 9.1 L Hct 26.9 L MCV 86.4 MCH 29.3 MCHC 33.9 RDW 15.2 H Plt Count 290 Neut % (Auto) 81.2 H Lymph % (Auto) 10.2 L [place] % (Auto) 7.8 Eos % (Auto) 0.4 L Baso % (Auto) 0.4 Neut # (Auto) 66173 H Lymph # (Auto) 1800 [place] # (Auto) 1400 H Eos # (Auto) 100 Baso # (Auto) 100 PT 12.7 INR 1.1 APTT Sodium Potassium Chloride Carbon Dioxide BUN Creatinine Estimated GFR BUN/Creatinine Ratio Glucose Calcium Magnesium Total Bilirubin AST ALT Alkaline Phosphatase Troponin I NT-Pro-B Natriuret Pep Total Protein Albumin Globulin Albumin/Globulin Ratio Lipase Nasal Screen MRSA (PCR) Negative for mrsa SARS-CoV-2 (PCR) Blood Type Antibody Screen Crossmatch 07/29/21 04:40 WBC RBC Hgb Hct MCV MCH MCHC RDW Plt Count Neut % (Auto) Lymph % (Auto) [place] % (Auto) Eos % (Auto) Baso % (Auto) Neut # (Auto) Lymph # (Auto) [place] # (Auto) Eos # (Auto) Baso # (Auto) PT INR APTT Sodium 134 L Potassium 4.5 Chloride 103 Carbon Dioxide 22 BUN 63 H Creatinine 1.79 H Estimated GFR 37 L BUN/Creatinine Ratio 35.2 H Glucose 198 H Calcium 8.4 Magnesium 1.9 Total Bilirubin AST ALT Alkaline Phosphatase Troponin I NT-Pro-B Natriuret Pep Total Protein Albumin Globulin Albumin/Globulin Ratio Lipase Nasal Screen MRSA (PCR) SARS-CoV-2 (PCR) Blood Type Antibody Screen Crossmatch [facility] Medical History Coronary artery disease Hyperlipidemia Hypertension Type 2 diabetes mellitus Surgical History History of coronary artery bypass graft x 3 Social History household members: spouse Tobacco & Substance Use Smoking Status: Former smoker alcohol intake: never Assessment & Plan Assessment & Plan narrative: Anemia with clinical upper GI bleed Plan: EGD with biopsy COVID-19 COVID-19 status: Negative Time Spent With Patient Critical Care time: I spent a total of [] minutes of critical care time on this patient's care today; this time is exclusive of procedural time.
--- NOTE | 2021-07-29 09:25 | PM.OP.EGD ---
Operative Date/Time/Diagnoses Date of procedure: 07/29/21 Time of procedure: 09:26 Pre-op diagnosis: Upper GI bleed Post-op diagnosis: same Procedure & Clinicians Study performed: EGD with cold forceps biopsy using anesthesia Same procedure as scheduled: Yes Indications: Upper GI bleed and anemia Surgeon: Venecia Flores Procedure Notes SCOAP/Timeout: Done Procedure in detail: Prep diagnosis: Upper GI bleed, 20 lb weight loss Postop diagnosis: Same Operative procedure: EGD with cold forceps biopsy Anesthetic: Mac Findings: Small shallow non bleeding ulcers of the duodenum as well as the stomach. Global gastritis of the stomach. No active bleeding at the time of procedure. Esophagus within normal limits Procedure: Patient placed in a supine position. Jaw lift was utilized for intubation of the esophagus with the scope. I then advanced into the stomach, insufflated the stomach to identify the pylorus and intubated into the duodenum. Insufflation extraction the scope including retroflex in the stomach itself had the above findings. Biopsies using cold forceps were taken of the pre-pyloric area. Impression: Duodenal and gastric ulcers. Gastritis. Plan b.i.d. Protonix for 8 weeks. Await results of H pylori. Discussed with PCP continuing on a once a day proton pump inhibitor joint terminal attack controller. Findings: duodenal ulcer, gastric ulcer and gastritis Specimen(s): none sent (Gastric mucosa) Complications: none Impression: Duodenal and gastric ulcers along with gastritis. No active bleeding Post-procedure Recommendations: EGD in 1 year and Prescription for (Protonix 40 mg p.o. b.i.d. x8 weeks) Plan for aftercare: Follow-up with PCP to discuss repeat EGD versus continuation of PPI long-term. And recommend med for H pylori if indicated. Follow up: as needed Disposition: PACU
[2021-07-29] MEDS: LACTATED RINGERS 1,000 ML 42 ML IV (09:43)
--- NOTE | 2021-07-29 09:45 | SUR.PHASEI ---
Report given to CHARLES Barnes. updated by Physician and myself. VSS. Pt drowsy, on 2LNC satting 95%. Tolerated procedure well, BS 204 prior to EGD. IV Fluids- given 100mL.
[2021-07-29] MEDS: PANTOPRAZOLE 40 MG VIAL IV ×3 (10:10→20:48)
--- NOTE | 2021-07-29 12:24 | CM.DANOTE ---
DCP: Case received, EMR reviewed and met with patient. Spouse, Kay, was also at bedside. Introduced self and role. Was able to obtain information regarding patient's baseline activity status at home prior to hospitalization. DCP assessment completed with information currently available. Patient is an 81 year old male who admitted yesterday afternoon to the care of the hospitalist team. PCP: Dr. Sanchez. Payer: confirmed: Medicare/[employer]. Patient came to the hospital via private vehicle secondary to having coffee ground emesis. Patient's spouse had brought in sample from home. According to notes, patient had been recently seen by his primary provider, and was scheduled for outpatient GI on 08-06, due to intermittent vomiting and diarrhea. Patient holds current diagnosis of Acute Blood los, anemia, possible GI bleed. Patient has received 2 units of blood, and EGD was performed. Met with patient in his room, and was present. Patient and spouse both reside in [place]. At his baseline, he is independent. Confirmed that primary care provider is Dr. Sanchez. P: DCP to continue to follow. Plan is for patient to go home when he is deemed medically stable. Rashmi Vail RN/Scrap Metal Processing Worker Discharge Planning/Care Management CM Discharge Assessment Start: 07/29/21 12:21 Freq: Status: Active Protocol: Document 07/29/21 12:21 (Rec: 07/29/21 12:23 [id number]) Discharge Planning Assessment Assigned Gas Tester Rashmi Vail RN/manager of broadcast content Advance Directives? No History Provided By Patient,Significant Other, Medical Record Prior Living Arrangements House Household Members spouse Type of transporation used prior to Drives own vehicle admit Independent with ADL's Yes Is patient alert and oriented? Yes Caregiver for Another No Barriers to Discharge No Discharge Plan Home Transportation Arrangement Spouse Referrals Initiated None needed Whiteboard Updated in Patient Room with Yes name and ext. # of Gas Tester Review Status In Process Next Review Type Continued Stay Review
--- NOTE | 2021-07-29 12:59 | DIET.CONS ---
Dietary Consultation Note Admission Date: 07/28/2021 14:20 Assessment: 81y M admitted for coffee ground emesis referred to nutrition for weight loss, no appetite. Met c pt and spouse at bedside after EGD results came in. Pt and spouse spoke c Dr. Flores re pts significant gastritis c numerous small, shallow stomach ulcers. Pt reports severe decrease in appetite (MNA 7-malnourished) over past 5w with associated 9.5% unintentional weight loss. Pt states he was avoiding eating secondary to severe gnawing stomach pain that would last up to days after eating c some diarrhea and coffee ground emesis. Pt reports significant reduction in strength and energy, though feeling better after 2 units PRBCs. Pt has been scanned by PCP, ruled out malignancy. Ht: 187.96 cm Wt: 109.8 kg (-9.5% in 5w, severe) BMI: 31.1 UBW: 121.3kg Last BM: 07/29/21 (07/29/21 07:45) MNA: 7 Rogelio Score: 19 Diet: 07/29/21 Dinner Carbohydrate Consistent Diet Diet Modifications: Safety Tray needed?: No Carbohydrate level: Large (4 CHO) Bedtime snack: Yes Labs: RBC 3.12 X10^6/uL (4.5-5.9) L 07/29/21 04:40 Hgb 9.1 g/dL (13.5-17.5) L 07/29/21 04:40 Hct 26.9 % (41-53) L 07/29/21 04:40 Creatinine 1.79 mg/dL (0.66-1.25) H 07/29/21 04:40 NT-Pro-B Natriuret Pep 2060 pg/mL (<450) H 07/28/21 09:15 Nutrition Diagnosis: Severe Acute Protein Calorie Malnutrition r/t near total avoidance of eating x5w aeb 9.5% unintentional weight loss in 5w (severe), pt avoided eating secondary to severe abd pain after eating, EGD shows significant gastritis with numerous shallow bleeding ulcers, pt reports weakness, received 2 units PRBCs upon admit for anemia (hgb 9.1, Hct 26). Interventions: 1. Educated pt and spouse on supportive MNT for gastritis including high protein diet-focus on soft protein foods, avoidance of acidic or spicy for a few weeks, compliance c PPI therapy. 2. Reiterated importance of protein c all meals and snacks to support LBM with consideration of not overdoing refined carbs secondary to pts DM2 and obese status. Goal to replete LBM without regaining fat mass. EER: 2,180kcals (20kcal/kg actual weight, obese PCM), 100g PRO (0.9g/kg per renal PCM) Monitoring/Evaluations: diet tolerance, renal fxn, additional GI sx Electronically Signed by: Jennifer Rae 07/29/21 12:59 [address] [address]
[2021-07-29] MEDS: METOCLOPRAMIDE 10 MG/2 ML INJ IV (13:36)
--- NOTE | 2021-07-29 14:10 | PC.NURSE ---
AM shift Pt is off floor to OR @ 0740 , returned @ 0950. EDG with + gastritis and ulcers. PPI for treatment and biopsies out for H pylori. Pt reports continued nausea. Zofran given. Order obtained for Reglan as well. at bedside and updated. Emesis x1 on return from pacu. Green and bile.
--- NOTE | 2021-07-29 14:14 | PM.PN.1 ---
Subjective Subjective Interval history: pt c/o nausea Exam Vital Signs (past 8 hours): - 07/29/21 07:37 07/29/21 07:45 07/29/21 07:30 Temperature 97.5 F L 97.2 F L Pulse Rate 65 77 Respiratory Rate 16 18 Blood Pressure 137/62 115/58 L Pulse Oximetry 95 96 98 Oxygen Delivery Method Room Air Room Air Oxygen Flow Rate 07/29/21 09:30 07/29/21 09:35 07/29/21 09:40 Temperature 97.5 F L Pulse Rate 57 L 57 L 57 L Respiratory Rate 15 16 15 Blood Pressure 124/45 L 126/45 L 147/42 H Pulse Oximetry 94 96 96 Oxygen Delivery Method Room Air Nasal Cannula Nasal Cannula Oxygen Flow Rate 2 2 07/29/21 10:55 07/29/21 10:25 07/29/21 09:55 Temperature Pulse Rate 57 L 58 L 60 Respiratory Rate Blood Pressure 188/80 H 171/72 H 167/72 H Pulse Oximetry Oxygen Delivery Method Oxygen Flow Rate 07/29/21 11:25 07/29/21 12:00 Temperature Pulse Rate 60 59 L Respiratory Rate Blood Pressure 188/80 H 190/84 H Pulse Oximetry Oxygen Delivery Method Oxygen Flow Rate Oxygen Delivery Method Nasal Cannula Oxygen Flow Rate 2 Const General: cooperative and well developed Orientation: alert, awake and oriented x3 HENMT Head: normal to inspection Ears: external ears normal Mouth: oral mucosae normal Eyes Pupils: PERRL EOM: EOM intact bilaterally Neck Neck: normal visual inspection and full ROM Resp Effort & Inspection: normal respiratory effort Auscultation: clear to auscultation bilaterally Cardio Rate: regular rate Rhythm: regular rhythm GI Palpation: soft and no hepatosplenomegaly Auscultation: normal bowel sounds Skin General: no rashes or lesions noted Neuro General: patient alert, patient awake, patient oriented x3, moves all extremities and no focal motor deficits Speech: speech normal Extrem General: normal to inspection, full ROM and no pedal edema Psych Appearance: grossly normal Objective Labs Result Diagrams: 07/29/21 04:40 07/29/21 04:40 Labs: Laboratory Results - last 24 hr 07/28/21 07/28/21 07/29/21 09:15 18:43 04:40 WBC RBC Hgb Hct MCV MCH MCHC RDW Plt Count Neut % (Auto) Lymph % (Auto) [place] % (Auto) Eos % (Auto) Baso % (Auto) Neut # (Auto) Lymph # (Auto) [place] # (Auto) Eos # (Auto) Baso # (Auto) PT 12.7 INR 1.1 Sodium Potassium Chloride Carbon Dioxide BUN Creatinine Estimated GFR BUN/Creatinine Ratio Glucose Calcium Magnesium Nasal Screen MRSA (PCR) Negative for mrsa Crossmatch See Detail 07/29/21 07/29/21 04:40 04:40 WBC 17.7 H RBC 3.12 L Hgb 9.1 L Hct 26.9 L MCV 86.4 MCH 29.3 MCHC 33.9 RDW 15.2 H Plt Count 290 Neut % (Auto) 81.2 H Lymph % (Auto) 10.2 L [place] % (Auto) 7.8 Eos % (Auto) 0.4 L Baso % (Auto) 0.4 Neut # (Auto) 05480 H Lymph # (Auto) 1800 [place] # (Auto) 1400 H Eos # (Auto) 100 Baso # (Auto) 100 PT INR Sodium 134 L Potassium 4.5 Chloride 103 Carbon Dioxide 22 BUN 63 H Creatinine 1.79 H Estimated GFR 37 L BUN/Creatinine Ratio 35.2 H Glucose 198 H Calcium 8.4 Magnesium 1.9 Nasal Screen MRSA (PCR) Crossmatch COUNT INCLUDES [facility] Medical History Coronary artery disease Hyperlipidemia Hypertension Type 2 diabetes mellitus Surgical History History of coronary artery bypass graft x 3 Social History household members: spouse Smoking Status: Former smoker alcohol intake: never Assessment & Plan Assessment & Plan narrative: [address] [address] History & Physical Report Patient: Zeke Caal MR#: [id number] : 1940 Acct:[id number] Age/Sex: 81 / M ? Date of Service: 07/28/21 Provider:Filiberto Lopez History of Present Illness History of Present Illness Chief complaint: Vomiting- looks like coffee grounds Narrative: CC : coffee ground emesis ?The patient is 81 y/o male with multiple comorbidities including : CAD, s/p CABG and stent ( 20 and 10 y/ago) on Plavix, HTN, HLD, DM type 2 on insulin, CHF systolic , etc presented to ER with cofee ground emesis this morning. Per him and at bedside he is having GI problems sicne May 2021, he lost 20+ lbs since then and has been done extensive w/u by PCP to r/o pancreatic cancer and other etiologies. His recent bryan CT did not show abnormalities, he has scheduled GI appointment for week from now. 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 They brought this coffee ground emesis in bag to show ER physician. Since he is in ER he did NOT have any other episodes of emesis or diarrhea , black stools etc. He denes abdominal pain, nausea, chest pain,fever, shortness of breath, recent g or sick contacts? Patient History Medical History?(Updated 07/28/21 @ 09:38 by Cecille Thao MD) Coronary artery disease Hyperlipidemia Hypertension Type 2 diabetes mellitus Surgical History?(Updated 07/28/21 @ 09:34 by Cecille Thao MD) History of coronary artery bypass graft x 3 Family & Social History Safety & Behavioral: Feels Safe in Current ? Yes ? Environment ? Been Physically Hurt or ? No? Threatened By a Person? Meds Home Medications and Allergies Home Medications ?Medication ?Instructions ?Recorded ?Confirmed ?Type amlodipine 10 mg tablet (Norvasc) 10 tab PO 1XD 07/28/21 07/28/21 History carvedilol 12.5 mg tablet (Coreg) 12.5 tab PO 2XD 07/28/21 07/28/21 History clopidogrel 75 mg tablet (Plavix) 75 tab PO 1XD 07/28/21 07/28/21 History doxazosin 8 mg tablet (Cardura) 8 tab PO 1XD 07/28/21 07/28/21 History dulaglutide 1.5 mg/0.5 mL 1.5 ea SUBCUT WEEKLY 07/28/21 07/28/21 History subcutaneous pen injector ? (Trulicity) ? furosemide 20 mg tablet (Lasix) 20 tab PO 1XD 07/28/21 07/28/21 History insulin glargine 100 unit/mL (3 20 ea SUBCUT 1XD 07/28/21 07/28/21 History mL) subcutaneous pen (Lantus ? Solostar U-100 Insulin) ? isosorbide mononitrate 30 mg 30 tab PO 1XD 07/28/21 07/28/21 History tablet,extended release 24 hr ? losartan 100 mg tablet 100 tab PO 1XD 07/28/21 07/28/21 History metformin 500 mg tablet 500 tab PO 1XD 07/28/21 07/28/21 History ondansetron HCl 8 mg tablet 8 tab PO 1-2XD PRN Nausea 07/28/21 07/28/21 History pravastatin 80 mg tablet 80 tab PO 1XD 07/28/21 07/28/21 History Allergies Allergy/AdvReac Type Severity Reaction Status Date / Time No Known Drug Allergies Allergy ? ? Verified 07/28/21 11:31 Review of Systems Review of Systems ROS: Yes All systems reviewed with the patient and are negative except as otherwise documented Eyes Eyes: Reports as per HPI ENT Ears, Nose, Mouth, and Throat: Yes as per HPI Cardiovascular Cardiovascular: Reports as per HPI Respiratory Respiratory: Reports as per HPI Gastrointestinal Gastrointestinal: Reports as per HPI Genitourinary Genitourinary: Reports as per HPI Musculoskeletal Musculoskeletal: Reports as per HPI Integumentary/Breasts Skin/Breast: Reports as per HPI Neurologic Neurologic: Reports as per HPI Psychiatric Psychiatric: Reports as per HPI Exam Vital Signs (past 8 hours): - ? 07/28/21 09:17 07/28/21 11:09 07/28/21 09:58 Temperature 98.4 F 97.4 F L ? Pulse Rate 62 65 59 L Respiratory Rate 16 16 ? Blood Pressure 139/65 184/107 H ? Pulse Oximetry 97 ? 97 Oxygen Delivery Method Room Air ? ? ? 07/28/21 09:59 07/28/21 09:59 07/28/21 10:00 Temperature ? ? ? Pulse Rate 59 L ? ? Respiratory Rate ? ? ? Blood Pressure ? 189/75 H 176/72 H Pulse Oximetry 95 ? ? Oxygen Delivery Method ? 07/28/21 10:00 07/28/21 10:30 07/28/21 10:31 Temperature ? ? ? Pulse Rate 61 63 ? Respiratory Rate ? ? ? Blood Pressure ? ? 197/80 H Pulse Oximetry 95 97 ? Oxygen Delivery Method ? 07/28/21 10:31 07/28/21 11:00 07/28/21 11:01 Temperature ? ? ? Pulse Rate 60 58 L ? Respiratory Rate ? ? ? Blood Pressure ? ? 184/107 H Pulse Oximetry 95 97 ? Oxygen Delivery Method ? 07/28/21 11:01 07/28/21 13:00 07/28/21 11:27 Temperature ? 97.5 F L 97.5 F L Pulse Rate 59 L 60 60 Respiratory Rate ? 18 16 Blood Pressure ? 192/80 H 212/82 H Pulse Oximetry 95 ? ? Oxygen Delivery Method ? 07/28/21 11:29 07/28/21 11:29 07/28/21 11:30 Temperature ? ? ? Pulse Rate ? 58 L 60 Respiratory Rate ? ? ? Blood Pressure 212/82 H ? ? Pulse Oximetry ? 97 97 Oxygen Delivery Method ? 07/28/21 12:00 07/28/21 12:01 07/28/21 12:01 Temperature ? ? ? Pulse Rate 60 ? 62 Respiratory Rate ? ? ? Blood Pressure ? 188/122 H ? Pulse Oximetry 97 ? 98 Oxygen Delivery Method ? 07/28/21 12:30 07/28/21 12:31 07/28/21 12:31 Temperature ? ? ? Pulse Rate 58 L ? 60 Respiratory Rate ? ? ? Blood Pressure ? 201/79 H ? Pulse Oximetry 97 ? 98 Oxygen Delivery Method ? 07/28/21 13:00 07/28/21 13:01 07/28/21 13:01 Temperature ? ? ? Pulse Rate 67 ? 63 Respiratory Rate ? ? ? Blood Pressure ? 192/80 H ? Pulse Oximetry 99 ? 98 Oxygen Delivery Method ? 07/28/21 13:47 Temperature 98.4 F Pulse Rate 62 Respiratory Rate 16 Blood Pressure 178/75 H Pulse Oximetry ? Oxygen Delivery Method ? Oxygen Delivery Method? Room Air? Const General: cooperative and well developed Orientation: alert, awake and oriented x3 [facility] Head: normocephalic and atraumatic Ears: external ears normal Nose: external nose normal Mouth: oral mucosae normal Eyes Pupils: PERRL EOM: EOM intact bilaterally Neck Neck: full ROM and supple Thyroid: thyroid normal Chest Chest: normal inspection of the chest Resp Auscultation: clear to auscultation bilaterally Cardio Rate: regular rate Rhythm: regular rhythm GI Inspection: normal to inspection Palpation: soft and No tender Auscultation: normal bowel sounds Back/Spine/Pelvis Back: normal to inspection Skin General: no rashes or lesions noted Neuro General: patient alert, patient awake, patient oriented x3, gait normal, moves all extremities and no focal motor deficits Cranial Nerves: CN's II-XI intact bilaterally Extrem General: normal to inspection, full ROM and no clubbing, cyanosis or edema Psych Mental Status: mental status grossly normal Mood: congruent mood Affect: normal affect Objective Labs Result Diagrams: 07/28/21 09:15? 07/28/21 09:15? Labs: Laboratory Results - last 24 hr ? 07/28/21 07/28/21 07/28/21 ? 09:15 09:15 09:15 WBC ?16.7 H ? ? RBC ?2.64 L ? ? Hgb ?7.7 L ? ? Hct ?23.3 L ? ? MCV ?88.1 ? ? MCH ?29.1 ? ? MCHC ?33.0 ? ? RDW ?15.1 H ? ? Plt Count ?293 ? ? Neut % (Auto) ?80.9 H ? ? Lymph % (Auto) ?13.2 L ? ? [place] % (Auto) ?4.5 ? ? Eos % (Auto) ?0.4 L ? ? Baso % (Auto) ?1.0 ? ? Neut # (Auto) ?45423 H ? ? Lymph # (Auto) ?2200 ? ? [place] # (Auto) ?700 ? ? Eos # (Auto) ?100 ? ? Baso # (Auto) ?200 H ? ? PT ? ?12.6 ? INR ? ?1.1 ? APTT ? ?29 ? Sodium ? ? ?134 L Potassium ? ? ?5.5 H Chloride ? ? ?104 Carbon Dioxide ? ? ?22 BUN ? ? ?84 H Creatinine ? ? ?1.80 H Estimated GFR ? ? ?37 L BUN/Creatinine Ratio ? ? ?46.7 H Glucose ? ? ?215 H Calcium ? ? ?8.3 L Magnesium ? ? ? Total Bilirubin ? ? ?0.2 AST ? ? ?24 ALT ? ? ?25 Alkaline Phosphatase ? ? ?72 Troponin I ? ? ? NT-Pro-B Natriuret Pep ? ? ? Total Protein ? ? ?5.8 L Albumin ? ? ?3.2 L Globulin ? ? ?2.6 Albumin/Globulin Ratio ? ? ?1.2 Lipase ? ? ? SARS-CoV-2 (PCR) ? ? ? Blood Type ? ? ? Antibody Screen ? ? ? Crossmatch ? 07/28/21 07/28/21 07/28/21 ? 09:15 09:15 11:17 WBC ? ? ? RBC ? ? ? Hgb ? ? ? Hct ? ? ? MCV ? ? ? MCH ? ? ? MCHC ? ? ? RDW ? ? ? Plt Count ? ? ? Neut % (Auto) ? ? ? Lymph % (Auto) ? ? ? [place] % (Auto) ? ? ? Eos % (Auto) ? ? ? Baso % (Auto) ? ? ? Neut # (Auto) ? ? ? Lymph # (Auto) ? ? ? [place] # (Auto) ? ? ? Eos # (Auto) ? ? ? Baso # (Auto) ? ? ? PT ? ? ? INR ? ? ? APTT ? ? ? Sodium ? ?133 L ? Potassium ? ?5.4 H ? Chloride ? ?104 ? Carbon Dioxide ? ?23 ? BUN ? ?81 H ? Creatinine ? ?1.88 H ? Estimated GFR ? ?35 L ? BUN/Creatinine Ratio ? ?43.1 H ? Glucose ? ?219 H ? Calcium ? ?8.3 L ? Magnesium ? ?1.8 ? Total Bilirubin ? ?0.3 ? AST ? ?25 ? ALT ? ?26 ? Alkaline Phosphatase ? ?72 ? Troponin I ? ?0.016 ? NT-Pro-B Natriuret Pep ? ?2060 H ? Total Protein ? ?6.4 ? Albumin ? ?3.4 L ? Globulin ? ?3.0 ? Albumin/Globulin Ratio ? ?1.1 ? Lipase ? ?86 ? SARS-CoV-2 (PCR) ? ? ?Negative Blood Type ?O Positive ? ? Antibody Screen ?Negative ? ? Crossmatch ?See Detail ? ? 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 Quality VTE Deep Vein Thrombosis/Pulmonary Embolism Present on Admission: No
[2021-07-29] MEDS: DOXAZOSIN 4 MG TABLET PO (15:43)
[2021-07-29] MEDS: PRAVASTATIN 20 MG TABLET 80 MG PO (20:39)
[2021-07-30 01:00] VITALS: BP 130/48; PULSE 63; RESP 18; TEMP 36.2; O2SAT 93
[2021-07-30 05:53] LABS: Add Manual Diff / Slide Review NO; Basophils Absolute Auto 100 /uL (0-100); Basophils Percent Auto 0.4 % (0-2); Eosinophils Absolute Auto 100 /uL (0-450); Eosinophils Percent Auto 0.6 % (2-4); Hematocrit 25.4 % (41-53); Hemoglobin 8.7 g/dL (13.5-17.5); Lymphocytes Absolute Auto 2000 /uL (1100-4500); Lymphocytes Percent Auto 11.3 % (25-40); Mean Corpuscular HGB Conc 34.2 % (30-36); Mean Corpuscular Hemoglobin 29.9 PG (26-34); Mean Corpuscular Volume 87.3 fL (80-100); Monocytes Absolute Auto 1900 /uL (0-900); Monocytes Percent Auto 10.6 % (3-14); Neutrophils Absolute Auto 13500 /uL (1500-7000); Neutrophils Percent Auto 77.1 % (50-75); Platelet Count 280 X10^3/uL (150-400); Red Blood Cell Count 2.91 X10^6/uL (4.5-5.9); Red Cell Distribution Width 15.6 % (11.6-14.8); White Blood Cell Count 17.5 X10^3/uL (4.5-11.0)
[2021-07-30 06:01] LABS: BUN Creatinine Ratio 28.7 (6-22); Blood Urea Nitrogen 49 mg/dL (9-20); Carbon Dioxide 24 mmol/L (22-32); Chloride 102 mmol/L (98-107); Estimated Glomerular Filt Rate 39 mL/min (>60); Glucose 204 mg/dL (80-110); HEMOLYSIS < 15 (0-50); Magnesium 1.9 mg/dL (1.6-2.3); Potassium 4.8 mmol/L (3.4-5.1); Sodium 135 mmol/L (137-145)
[2021-07-30 06:39] VITALS: BP 131/52; PULSE 63; RESP 19; TEMP 36.4; O2SAT 95
[2021-07-30] MEDS: ISOSORBIDE MONONITRATE 20 MG TABLET 30 MG PO (06:52)
--- NOTE | 2021-07-30 07:46 | PC.NURSE ---
Addendum entered by Bambi Santacruz R.N. 07/30/21 18:02: Patients gone, he is back in bed and going to eat some dinner. Denies nausea. Addendum entered by Bambi Santacruz R.N. 07/30/21 14:58: Patient complained of nausea, given reglan and patient more comfortable. He is resting comfortably and visiting with his . Unable to get stool sample as of yet. Original Note: Patient is alert and oriented x3, states that he came into the ER vomiting bile and no blood. He had an EGD yesterday, and he denies n/v or discomfort. Patient is waiting for his breakfast. Blood sugar 218, will given insulin.
[2021-07-30] MEDS: INSULIN LISPRO 100 UNIT/ML 3ML VIAL SUBCUT ×3 (08:08→17:02)
[2021-07-30] MEDS: DOXAZOSIN 4 MG TABLET PO (08:09)
[2021-07-30] MEDS: PANTOPRAZOLE 40 MG VIAL IV ×2 (08:09→21:22)
[2021-07-30 10:00] VITALS: BP 119/51; PULSE 65; RESP 17; TEMP 36.1; O2SAT 94
[2021-07-30] MEDS: METOCLOPRAMIDE 10 MG/2 ML INJ IV (11:27)
--- NOTE | 2021-07-30 11:55 | DI.RAD.S_ITS ---
PROCEDURE: XR CHEST 1V INDICATIONS: Pneumonia TECHNIQUE: One view of the chest was acquired. COMPARISON: None. FINDINGS: Surgical changes and devices: Median sternotomy changes for CABG. Lungs and pleura: Lungs are clear. No pleural effusions or pneumothorax. Mediastinum: Mediastinal contours appear normal. Heart size is normal. Bones and chest wall: No suspicious bony lesions. Overlying soft tissues appear unremarkable. IMPRESSION: No abnormal airspace opacity demonstrated. Dictated by: Eran Eng M.D. on 07/30/2021 at 12:27 Approved by: Eran Eng M.D. on 07/30/2021 at 12:28
[2021-07-30] MEDS: cefTRIAXone 1,000 MG in SODIUM CHLORIDE 0.9% 100 ML 200 MG IV (13:02)
--- NOTE | 2021-07-30 14:03 | P.PN_ITS ---
Subjective Subjective Interval history: pt c/o diarrhea x3, nausea Exam Vital Signs (past 8 hours): - 07/30/21 06:39 07/30/21 10:00 Temperature 97.5 F L 97.0 F L Pulse Rate 63 65 Respiratory Rate 19 17 Blood Pressure 131/52 L 119/51 L Pulse Oximetry 95 94 Oxygen Flow Rate 0 0 Oxygen Delivery Method Nasal Cannula Oxygen Flow Rate 0 Const General: cooperative and well developed Orientation: alert, awake and oriented x3 HENMT Head: normal to inspection Ears: external ears normal Mouth: oral mucosae normal Eyes Pupils: PERRL EOM: EOM intact bilaterally Neck Neck: normal visual inspection and full ROM Resp Effort & Inspection: normal respiratory effort Auscultation: clear to auscultation bilaterally Cardio Rate: regular rate Rhythm: regular rhythm GI Palpation: soft and no hepatosplenomegaly Auscultation: normal bowel sounds Skin General: no rashes or lesions noted Neuro General: patient alert, patient awake, patient oriented x3, moves all extremities and no focal motor deficits Speech: speech normal Extrem General: normal to inspection, full ROM and no pedal edema Psych Appearance: grossly normal Objective Labs Result Diagrams: 07/30/21 05:30 07/30/21 05:30 Labs: Laboratory Results - last 24 hr 07/30/21 07/30/21 05:30 05:30 WBC 17.5 H RBC 2.91 L Hgb 8.7 L Hct 25.4 L MCV 87.3 MCH 29.9 MCHC 34.2 RDW 15.6 H Plt Count 280 Neut % (Auto) 77.1 H Lymph % (Auto) 11.3 L [place] % (Auto) 10.6 Eos % (Auto) 0.6 L Baso % (Auto) 0.4 Neut # (Auto) 60292 H Lymph # (Auto) 2000 [place] # (Auto) 1900 H Eos # (Auto) 100 Baso # (Auto) 100 Sodium 135 L Potassium 4.8 Chloride 102 Carbon Dioxide 24 BUN 49 H Creatinine 1.71 H Estimated GFR 39 L BUN/Creatinine Ratio 28.7 H Glucose 204 H Calcium 8.0 L Magnesium 1.9 PFSH Medical History Coronary artery disease Hyperlipidemia Hypertension Type 2 diabetes mellitus Surgical History History of coronary artery bypass graft x 3 Social History household members: spouse Smoking Status: Former smoker alcohol intake: never Assessment & Plan Assessment & Plan narrative: Acute blood loss anemia secondary to possible GI bleeding HGB stable 8.7 vs 9.1 -s/p2 units PRBC in ER - continue close monitoring -transfuse if 7 or below -CBC daily Leukocytosis initially thought reactive/stress related but persistent for 3 days -UA/cx - CXR -empiric ceftriaxone Possible GI bleeding s/p EGD secondary to gastritis, gastric and duodenal ulcers found on EGD -PPI BID CAD, s/p CABG, s/p stent -telemetry monirtoring - continue BB, stopped plavix CHF systolic -continue ISMN -continue home meds HTN -continue home meds Hyperlipidemia -continue statin DM type 2 -SSI DVT prophylaxis: SCD Code status: butcher all round Spent With Patient Critical Care time: I spent a total of [] minutes of critical care time on this patient's care today; this time is exclusive of procedural time. Quality VTE Deep Vein Thrombosis/Pulmonary Embolism Present on Admission: No
[2021-07-30 15:00] VITALS: BP 117/46; PULSE 65; RESP 16; TEMP 36.1; O2SAT 95
[2021-07-30 20:27] VITALS: BP 166/49; PULSE 67; RESP 16; TEMP 36.4; O2SAT 94
[2021-07-30] MEDS: PRAVASTATIN 20 MG TABLET 80 MG PO (21:21)
[2021-07-30 23:09] LABS: Clostridium Difficile Tox PCR Negative for C. diff (Negative)
[2021-07-31] VITALS (10 sets, daily range): BP systolic 122–179; BP diastolic 46–58; PULSE 59–76; RESP 16–18; TEMP 36.1–36.6; O2SAT 94–97
[2021-07-31] MEDS: ISOSORBIDE MONONITRATE 20 MG TABLET 30 MG PO (07:27)
[2021-07-31 09:20] LABS: Hematocrit 23.6 % (41-53); Hemoglobin 7.7 g/dL (13.5-17.5); Mean Corpuscular HGB Conc 32.5 % (30-36); Mean Corpuscular Hemoglobin 28.8 PG (26-34); Mean Corpuscular Volume 88.6 fL (80-100); Platelet Count 297 X10^3/uL (150-400); Red Blood Cell Count 2.67 X10^6/uL (4.5-5.9); Red Cell Distribution Width 15.8 % (11.6-14.8); White Blood Cell Count 16.2 X10^3/uL (4.5-11.0)
[2021-07-31 09:33] LABS: BUN Creatinine Ratio 20.9 (6-22); Blood Urea Nitrogen 34 mg/dL (9-20); Calcium 7.8 mg/dL (8.4-10.2); Carbon Dioxide 24 mmol/L (22-32); Chloride 100 mmol/L (98-107); Estimated Glomerular Filt Rate 42 mL/min (>60); Glucose 236 mg/dL (80-110); HEMOLYSIS < 15 (0-50); Potassium 4.2 mmol/L (3.4-5.1); Sodium 131 mmol/L (137-145)
[2021-07-31 09:50] LABS: Procalcitonin 0.15 ng/mL (<0.5)
[2021-07-31] MEDS: PANTOPRAZOLE 40 MG VIAL IV ×2 (10:41→21:20)
[2021-07-31] MEDS: INSULIN LISPRO 100 UNIT/ML 3ML VIAL SUBCUT ×4 (10:41→21:29)
[2021-07-31] MEDS: cefTRIAXone 1,000 MG in SODIUM CHLORIDE 0.9% 100 ML 200 MG IV (12:30)
[2021-07-31] MEDS: INSULIN GLARGINE 100 UNIT/ML 3ML PEN 30 UNIT SUBCUT (13:10)
--- NOTE | 2021-07-31 16:27 | PM.PN.1 ---
Subjective Subjective Date Patient Seen: 07/31/21 Time Patient Seen: 08:00 Interval history: He feels much improved today. He has no chest pain, shortness of breath, lightheaded. He notes no blood in his stool. Exam Vital Signs (past 8 hours): - 07/31/21 10:41 07/31/21 12:00 07/31/21 15:53 Temperature 96.9 F L 97.9 F Pulse Rate 76 67 59 L Respiratory Rate 16 16 Blood Pressure 122/47 L 143/46 H 155/53 H Pulse Oximetry 96 97 07/31/21 15:55 07/31/21 16:13 Temperature 97.9 F 97.9 F Pulse Rate 59 L 59 L Respiratory Rate 16 16 Blood Pressure 155/53 H 155/53 H Pulse Oximetry Oxygen Delivery Method Room Air Oxygen Flow Rate 0 Narrative Exam Narrative: GEN: no acute distresss CV: regular rate and rhythm PULM: clear bilaterally ABD: soft, nontender, nondistended, no organomegaly Objective Labs Result Diagrams: 07/31/21 08:50 07/31/21 08:50 Labs: Laboratory Results - last 24 hr 07/28/21 07/30/21 07/31/21 09:15 20:15 08:50 WBC 16.2 H RBC 2.67 L Hgb 7.7 L Hct 23.6 L MCV 88.6 MCH 28.8 MCHC 32.5 RDW 15.8 H Plt Count 297 Sodium Potassium Chloride Carbon Dioxide BUN Creatinine Estimated GFR BUN/Creatinine Ratio Glucose Calcium Procalcitonin C. difficile Tox (PCR) Negative for c. diff Blood Type O Positive Antibody Screen Negative Crossmatch See Detail 07/31/21 07/31/21 08:50 08:50 WBC RBC Hgb Hct MCV MCH MCHC RDW Plt Count Sodium 131 L Potassium 4.2 Chloride 100 Carbon Dioxide 24 BUN 34 H Creatinine 1.63 H Estimated GFR 42 L BUN/Creatinine Ratio 20.9 Glucose 236 H Calcium 7.8 L Procalcitonin 0.15 C. difficile Tox (PCR) Blood Type Antibody Screen Crossmatch [facility] Medical History Coronary artery disease Hyperlipidemia Hypertension Type 2 diabetes mellitus Surgical History History of coronary artery bypass graft x 3 Social History household members: spouse Smoking Status: Former smoker alcohol intake: never Assessment & Plan Assessment & Plan narrative: 1. Acute blood loss anemia -secondary to possible GI bleeding -EGD shows gastritis with no active bleeding -hgb trended down to 7s, transfuse 1U -did get 2U PRBC in ED -recheck hgb tomorrow -continue PPI 2. Leukocytosis initially thought reactive/stress related but persistent for 3 days -UA/cx negative -CXR negative -empiric ceftriaxone, but will stop if no evidence of infection by tomorrow 3. CAD, s/p CABG, s/p stent -telemetry monirtoring -continue beta-kelin -hold plavix for now, likely restart on dc 4. CHF systolic -continue ISMN -continue home meds 5. HTN -continue home meds 6. Hyperlipidemia -continue statin 7. DM type 2 -SSI Time Spent With Patient Critical Care time: I spent a total of [] minutes of critical care time on this patient's care today; this time is exclusive of procedural time. Quality VTE Deep Vein Thrombosis/Pulmonary Embolism Present on Admission: No
[2021-07-31] MEDS: PRAVASTATIN 20 MG TABLET 80 MG PO (21:20)
[2021-08-01] VITALS: BP 173/56; PULSE 66; RESP 16; TEMP 36.6; O2SAT 97
[2021-08-01 04:00] VITALS: BP 160/49; PULSE 62; RESP 16; TEMP 36.6; O2SAT 95
[2021-08-01] MEDS: ISOSORBIDE MONONITRATE 20 MG TABLET 30 MG PO (06:57)
[2021-08-01 07:21] LABS: Hematocrit 25.8 % (41-53); Hemoglobin 8.5 g/dL (13.5-17.5); Mean Corpuscular HGB Conc 32.9 % (30-36); Mean Corpuscular Volume 88.4 fL (80-100); Platelet Count 281 X10^3/uL (150-400); Red Blood Cell Count 2.92 X10^6/uL (4.5-5.9); Red Cell Distribution Width 15.4 % (11.6-14.8); White Blood Cell Count 12.3 X10^3/uL (4.5-11.0)
[2021-08-01 07:36] LABS: BUN Creatinine Ratio 18.9 (6-22); Blood Urea Nitrogen 28 mg/dL (9-20); Calcium 7.8 mg/dL (8.4-10.2); Carbon Dioxide 24 mmol/L (22-32); Chloride 101 mmol/L (98-107); Estimated Glomerular Filt Rate 47 mL/min (>60); Glucose 206 mg/dL (80-110); HEMOLYSIS < 15 (0-50); Potassium 4.1 mmol/L (3.4-5.1); Sodium 132 mmol/L (137-145)
[2021-08-01 08:00] VITALS: BP 148/57; PULSE 64; RESP 16; TEMP 36.9; O2SAT 96
[2021-08-01] MEDS: INSULIN LISPRO 100 UNIT/ML 3ML VIAL SUBCUT (08:09)
[2021-08-01] MEDS: INSULIN GLARGINE 100 UNIT/ML 3ML PEN 30 UNIT SUBCUT (08:12)
[2021-08-01] MEDS: PANTOPRAZOLE 40 MG VIAL IV (08:16)
[2021-08-01 08:17] VITALS: BP 148/57; PULSE 64
[2021-08-01] MEDS: DOXAZOSIN 4 MG TABLET PO (08:17)
--- NOTE | 2021-08-01 12:01 | PC.NURSE ---
Pt is A&Ox3, VSS afebrile on RA. Pt denies pain, he is able to ambulate to the SBA,and around the nurse's unit with . He denies any further bleeding or BM this a.m. or during the night. He is medically cleared for discharge by the hospitalist this a.m. Both patient and verbalize understanding and agreement of medications, follow up with instructional design specialist and PCP as well as if symptoms return. He is escorted by [employer] SPECIALIST via w/ch to private vehicle with at approximately 1130 a.m. for discharge home with prescriptions and all of his belongings.
--- NOTE | 2021-08-01 12:09 | CM.DPC ---
DCP Note Cont: P: Per MD, pt is stable for discharge today. Pt discharge home via spouse POV. Lisa Marie RN/DCP
--- NOTE | 2021-08-01 21:31 | P.DS_ITS ---
History of Present Illness History of Present Illness Chief complaint: Vomiting- looks like coffee grounds Narrative: Per admitting provider: The patient is 81 y/o male with multiple comorbidities including : CAD, s/p CABG and stent ( 20 and 10 y/ago) on Plavix, HTN, HLD, DM type 2 on insulin, CHF systolic , etc presented to ER with cofee ground emesis this morning. Per him and at bedside he is having GI problems sicne May 2021, he lost 20+ lbs since then and has been done extensive w/u by PCP to r/o pancreatic cancer and other etiologies. His recent bryan CT did not show abnormalities, he has scheduled GI appointment for week from now. He started to vomit in the middle of night with brown color emesis , but later on in cemetery keeper another episode with black color. They brought this coffee ground emesis in bag to show ER physician. Since he is in ER he did NOT have any other episodes of emesis or diarrhea , black stools etc. He denes abdominal pain, nausea, chest pain,fever, shortness of breath, recent g or sick contacts Discharge Providers Provider Date of admission: 07/28/21 14:20 Discharge Date: 08/01/21 Primary care physician: Albert Sanchez DO Consults: 07/28/21 11:14 Consult to Tele-manager loan Routine Comment: Consulting Provider: Juan Daniel Tele-intensivists Reason for consultation: Teletypesetter Operator services 07/28/21 11:22 Consult to Physician Stat Comment: Consulting Provider: Venecia Flores Reason for consultation: aCUTE gi BLEEDING Has provider been notified: Yes 07/28/21 12:23 Consult to General Surgery Stat Comment: Consulting Provider: Venecia Flores Reason for consultation: upper GI bleed Has provider been notified: Yes 07/28/21 14:17 Consult to Physician Stat Comment: Consulting Provider: Venecia Flores Reason for consultation: GI bleeding Has provider been notified: Yes 07/28/21 18:39 Consult to Dietitian, Adult Routine Comment: GI appt in one week Reason For Exam: weight loss, no appetite Discharge provider: Ishaan Sutton MD Summary Hospital Course Discharge Diagnosis: 1. Acute blood loss anemia, GI bleed 2. Peptic ulcer disease 3. Leukocytosis, possible pneumonia 4. CAD s/p CABG 5. Chronic systolic CHF 6. HTN 7. HL 8. Type 2 DM Hospital Course: Mr. Caal was admitted with a GI bleed. During his hospitalization he did get 3U total PRBC. His hemoglobin improved to the 8s and he was no longer symptomatic. EGD was done which showed peptic ulcers and he was started on pantoprazole. His plavix was held initially, but restarted on discharge as his bleeding was controlled. He also had a leukocytosis that was elevated to 18, this improved with empiric ceftriaxone. There was a possible pneumonia noted, but not definite, he was dischargd to complete a course of antibiotics. His leukocytosis may also have been stress induced. At discharge he had a pending H. pylori biopsy. He has already been referred to GI and will follow up within one week. Exam Vital Signs (past 8 hours): Oxygen Delivery Method Room Air Oxygen Flow Rate 0 Narrative Exam Narrative: GEN: no acute distresss CV: regular rate and rhythm PULM: clear bilaterally ABD: soft, nontender, nondistended, no organomegaly Objective Labs Result Diagrams: 08/01/21 06:24 08/01/21 06:24 Labs: Laboratory Results - last 24 hr 08/01/21 08/01/21 06:24 06:24 WBC 12.3 H RBC 2.92 L Hgb 8.5 L Hct 25.8 L MCV 88.4 MCH 29.0 MCHC 32.9 RDW 15.4 H Plt Count 281 Sodium 132 L Potassium 4.1 Chloride 101 Carbon Dioxide 24 BUN 28 H Creatinine 1.48 H Estimated GFR 47 L BUN/Creatinine Ratio 18.9 Glucose 206 H Calcium 7.8 L PFSH Medical History Coronary artery disease Hyperlipidemia Hypertension Type 2 diabetes mellitus Surgical History History of coronary artery bypass graft x 3 Social History household members: spouse Smoking Status: Former smoker alcohol intake: never Discharge Plan Discharge Plan Patient Disposition: Home Provider Discharge Comment: Mr. Caal was admitted for gastrointestinal bleeding. He did get blood transfusions, 3 units in total. He did have endoscopy which showed ulcers. He was started on acid reducing medicine (protonix) and should take this twice a day. He does have H. pylori results pending from the biopsy. He has scheduled follow up with a correctional case records supervisor. He should follow up with his PCP within 2 weeks. Discharge orders & Medications Prescriptions: New pantoprazole 40 mg tablet,delayed release (DR/EC) 40 mg PO BID Qty: 60 0RF cefpodoxime 100 mg tablet 100 mg PO BID Qty: 4 0RF Rx Instructions: must administer with a meal/food Continued amlodipine [Norvasc] 10 mg tablet 10 tab PO 1XD Label Comments: TAKE ONE TABLET BY MOUTH ONE TIME DAILY metformin 500 mg tablet 500 tab PO 1XD Label Comments: TAKE 1 TABLET BY MOUTH EVERY morning AND 2 TABLETS EVERY evening carvedilol [Coreg] 12.5 mg tablet 12.5 tab PO 2XD Label Comments: TAKE ONE TABLET BY MOUTH TWICE DAILY ondansetron HCl 8 mg tablet 8 tab PO 1-2XD MDD 16 PRN (Reason: Nausea) Label Comments: TAKE ONE TABLET BY MOUTH TWICE DAILY isosorbide mononitrate 30 mg tablet extended release 24 hr 30 tab PO 1XD Label Comments: TAKE ONE TABLET BY MOUTH ONE TIME DAILY clopidogrel [Plavix] 75 mg tablet 75 tab PO 1XD Label Comments: TAKE ONE TABLET BY MOUTH ONE TIME DAILY doxazosin [Cardura] 8 mg tablet 8 tab PO 1XD Label Comments: TAKE ONE TABLET BY MOUTH ONE TIME DAILY pravastatin 80 mg tablet 80 tab PO 1XD furosemide [Lasix] 20 mg tablet 20 tab PO 1XD Label Comments: TAKE ONE TABLET BY MOUTH ONE TIME DAILY losartan 100 mg tablet 100 tab PO 1XD Label Comments: TAKE ONE TABLET BY MOUTH ONE TIME DAILY insulin glargine [Lantus Solostar U-100 Insulin] 100 unit/mL (3 mL) insulin pen 36 ea SUBCUT 1XD Label Comments: INJECT 30 UNITS UNDER THE SKIN ONCE DAILY No Action metformin 500 mg Tablet 1,000 mg PO QPM Follow up/Referrals: Albert Sanchez DO [Primary Care Provider] - Diet/Activity/Treatments Diet: Carb-consistent/Diabetic Discharge Data Primary Care Provider: Albert Sanchez Quality VTE Deep Vein Thrombosis/Pulmonary Embolism Present on Admission: No
== END 2021-08-01 11:30 | disposition home or self-care (01) | DRG 377 ==
LOC: ED 10:21 → AC 14:21 → ICU 16:40 → AC 07-29 18:32
PROVIDERS: Internal Medicine; Internal Medicine Critical Care Medicine; Nurse Practitioner Family; Surgery; Admitting Provider Internal Medicine; Emergency Provider Emergency Medicine; PCP Family Medicine; Referring Provider Emergency Medicine; Visit Provider Internal Medicine
PROC: 0DJ08ZZ Inspection of Upper Intestinal Tract, Via Natural or Artificial Opening Endoscopic (ICD-10-PCS; CPT 43235; principal; 2021-07-29 09:00)
DX: K25.4 Chronic or unspecified gastric ulcer with hemorrhage (principal); E43 Unspecified severe protein-calorie malnutrition; J18.9 Pneumonia, unspecified organism; D62 Acute posthemorrhagic anemia; I50.22 Chronic systolic (congestive) heart failure; K26.4 Chronic or unspecified duodenal ulcer with hemorrhage; K29.71 Gastritis, unspecified, with bleeding; I11.0 Hypertensive heart disease with heart failure; I25.10 Atherosclerotic heart disease of native coronary artery without angina pectoris; E11.9 Type 2 diabetes mellitus without complications; E78.5 Hyperlipidemia, unspecified; Z95.1 Presence of aortocoronary bypass graft; Z68.31 Body mass index [BMI] 31.0-31.9, adult; Z95.5 Presence of coronary angioplasty implant and graft; Z79.01 Long term (current) use of anticoagulants; Z87.891 Personal history of nicotine dependence; Z20.822 Contact with and (suspected) exposure to COVID-19; Z79.84 Long term (current) use of oral hypoglycemic drugs; Z79.4 Long term (current) use of insulin
CPT/HCPCS: 36415; 36430; 43239; 71045; 80048; 80053; 81003; 82962; 83690; 83735; 83880; 84145; 84484; 85025; 85027; 85610; 85730; 86850; 86900; 86901; 87086; 87493; 87635; 87797; 93005; 94762; 96374; 96375; 99232; 99284; 99285; C9803; P9016; C9113; J0696; J1815; J1940; J2250; J2405; J2704; J2765; J3010

== ENCOUNTER → 2021-11-19 10:19 | Outpatient (CLI) | payer MEDICARE, SELFPAY ==
[2021-07-28 18:40] VITALS: BMI 31.1
--- NOTE | 2021-11-19 | DI.RAD.S_ITS ---
PROCEDURE: XR CHEST 2V INDICATIONS: Orthopnea TECHNIQUE: 2 views of the chest were acquired. COMPARISON: [facility], , XR CHEST 1V, 07/30/2021, 12:01. FINDINGS: Surgical changes and devices: Median sternotomy and CABG changes. Lungs and pleura: Development of small bilateral pleural effusions, right greater than left. No pneumothorax. There is central vascular and interstitial prominence, thickening of the right minor fissure, and small airspace opacity in the right lower lung. Mediastinum: The heart is enlarged. Mediastinal contour is normal. Bones and chest wall: No suspicious bony abnormalities. Soft tissues appear unremarkable. IMPRESSION: 1. Cardiomegaly, interstitial and central vascular prominence, airspace opacity and effusions are suggestive of acute CHF, all developed since the prior study. 2. Prior CABG. Dictated by: Natalie Osorio M.D. on 11/19/2021 at 14:08 Approved by: Natalie Osorio M.D. on 11/19/2021 at 14:10
== END ==
PROVIDERS: PCP Family Medicine; Referring Provider Family Medicine; Visit Provider Family Medicine
DX: R06.01 Orthopnea (principal); I51.7 Cardiomegaly; Z95.1 Presence of aortocoronary bypass graft
CPT/HCPCS: 71046

== ENCOUNTER 2021-11-19 19:20 | Emergency (ER) | payer MEDICARE, SELFPAY ==
[2021-07-28 18:40] VITALS: BMI 31.1
[2021-11-19 19:24] VITALS: BP 167/72; PULSE 65; RESP 26; TEMP 36.6; O2SAT 97; BMI 32.5
--- NOTE | 2021-11-19 19:31 | DI.RAD.S_ITS ---
PROCEDURE: XR CHEST 1V INDICATIONS: chest pain TECHNIQUE: One view of the chest was acquired. COMPARISON: [facility], CR, XR CHEST 2V, 11/19/2021, 10:33. FINDINGS: Surgical changes and devices: Median sternotomy wires are present and appear intact. Findings of prior CABG. Lungs and pleura: Diffuse interstitial prominence. There is central vascular congestion. Bilateral pleural effusions. No pneumothorax. No focal consolidations. Mediastinum: Mediastinal contours appear stable. Heart size is enlarged. Bones and chest wall: No suspicious bony lesions. Overlying soft tissues appear unremarkable. IMPRESSION: Cardiomegaly with findings compatible with CHF/pulmonary edema. Dictated by: Ramiro Walters M.D. on 11/19/2021 at 21:34 Approved by: Ramiro Walters M.D. on 11/19/2021 at 21:36
[2021-11-19 19:58] LABS: Add Manual Diff / Slide Review NO; Basophils Absolute Auto 100 /uL (0-100); Basophils Percent Auto 1.2 % (0-2); Eosinophils Absolute Auto 100 /uL (0-450); Eosinophils Percent Auto 1.6 % (2-4); Hematocrit 25.9 % (41-53); Hemoglobin 8.2 g/dL (13.5-17.5); Lymphocytes Absolute Auto 900 /uL (1100-4500); Lymphocytes Percent Auto 11.5 % (25-40); Mean Corpuscular HGB Conc 31.7 % (30-36); Mean Corpuscular Hemoglobin 25.8 PG (26-34); Mean Corpuscular Volume 81.4 fL (80-100); Monocytes Absolute Auto 1200 /uL (0-900); Monocytes Percent Auto 16.4 % (3-14); Neutrophils Absolute Auto 5100 /uL (1500-7000); Neutrophils Percent Auto 69.3 % (50-75); Platelet Count 203 X10^3/uL (150-400); Red Blood Cell Count 3.19 X10^6/uL (4.5-5.9); Red Cell Distribution Width 17.2 % (11.6-14.8); White Blood Cell Count 7.4 X10^3/uL (4.5-11.0)
[2021-11-19 20:00] LABS: INR 1.2 (0.9-1.3); Prothrombin Time 13.6 SECONDS (10.1-12.7)
[2021-11-19 20:03] LABS: PTT Partial Thromboplastin Tim 31 SECONDS (26-36)
[2021-11-19 20:08] LABS: COVID19 -Nasal RAPID Negative (Negative)
[2021-11-19 20:34] LABS: Alanine Aminotransferase 15 IU/L (<50); Albumin 3.7 g/dL (3.5-5.0); Albumin Globulin Ratio 1.2 (1.0-2.8); Alkaline Phosphatase 92 U/L (38-126); Aspartate Aminotransferase 28 IU/L (17-59); BUN Creatinine Ratio 20.5 (6-22); Bilirubin Total 0.4 mg/dL (0.2-1.3); Blood Urea Nitrogen 34 mg/dL (9-20); Carbon Dioxide 21 mmol/L (22-32); Chloride 96 mmol/L (98-107); Creatine Kinase 49 U/L (55-170); Estimated Glomerular Filt Rate 41 mL/min (>60); Globulin 3.1 g/dL (1.7-4.1); Glucose 194 mg/dL (80-110); HEMOLYSIS < 15 (0-50); Lipase 75 U/L (23-300); Magnesium 1.9 mg/dL (1.6-2.3); Sodium 128 mmol/L (137-145); Total Protein 6.8 g/dL (6.3-8.2)
[2021-11-19 20:37] LABS: Potassium 5.9 mmol/L (3.4-5.1)
[2021-11-19 20:41] LABS: NT-proBNP (BNP-Adult 18+) 6200 pg/mL (<450)
[2021-11-19 20:45] LABS: Troponin I 0.014 ng/mL (0.01-0.034)
[2021-11-19] MEDS: FUROSEMIDE 40 MG/4 ML VIAL IV (22:39)
--- NOTE | 2021-11-20 02:05 | PC.NURSE ---
To room from triage - family at bedside
--- NOTE | 2021-11-20 02:38 | ED.EXTPRO ---
HPI - Extremity Problem General Chief complaint: Extremity Problem,Nontraumatic Stated complaint: Sob/cough/fluid retention Time Seen by Provider: 11/20/21 02:37 Source: patient Mode of arrival: Wheelchair History of Present Illness HPI Narrative: Patient is a 81-year-old gentleman with history of coronary artery disease, post CABG, hypertension, hyperlipidemia, diabetes, hypothyroidism presenting with shortness of breath and cough. He says he has had ongoing shortness of breath mostly with exertion her about the last 1 week. He has had orthopnea for the last 3 days. Unable to sleep requiring to sleep reclined. He has not had any fevers chills. No significant chest pain. He does take furosemide at home 20 mg once a day. But feels like he has had more lower extremity edema than normal. He apparently did have an outpatient chest x-ray which did show probable CHF off on a repeat chest x-ray which confirmed. The patient does not typically require oxygen but is needing some Related Data Home Medications Medication Instructions Recorded Confirmed amlodipine 10 mg tablet (Norvasc) 10 tab PO 1XD 07/28/21 07/28/21 carvedilol 12.5 mg tablet (Coreg) 12.5 tab PO 2XD 07/28/21 07/28/21 clopidogrel 75 mg tablet (Plavix) 75 tab PO 1XD 07/28/21 07/28/21 doxazosin 8 mg tablet (Cardura) 8 tab PO 1XD 07/28/21 07/28/21 furosemide 20 mg tablet (Lasix) 20 tab PO 1XD 07/28/21 07/28/21 insulin glargine 100 unit/mL (3 36 ea SUBCUT 1XD 07/28/21 08/01/21 mL) subcutaneous pen (Lantus Solostar U-100 Insulin) isosorbide mononitrate 30 mg 30 tab PO 1XD 07/28/21 07/28/21 tablet,extended release 24 hr losartan 100 mg tablet 100 tab PO 1XD 07/28/21 07/28/21 metformin 500 mg tablet 500 tab PO 1XD 07/28/21 07/28/21 ondansetron HCl 8 mg tablet 8 tab PO 1-2XD PRN Nausea 07/28/21 07/28/21 pravastatin 80 mg tablet 80 tab PO 1XD 07/28/21 07/28/21 metformin 500 mg tablet 1,000 mg PO QPM 08/01/21 08/01/21 Previous Rx's Medication Instructions Recorded cefpodoxime 100 mg tablet 100 mg PO BID #4 tabs 08/01/21 pantoprazole 40 mg tablet,delayed 40 mg PO BID #60 tabs 08/01/21 release Allergies Allergy/AdvReac Type Severity Reaction Status Date / Time No Known Drug Allergies Allergy Verified 11/19/21 19:24 Review of Systems Review of Systems Narrative: GENERAL: Denies chills, fatigue, malaise, fever, sweats, travel HEENT: Denies sinus pain, ear pain, sore throat, difficulty swallowing, neck pain RESPIRATORY: See HPI CARDIOVASCULAR: See HPI GASTROINTESTINAL: Denies nausea, vomiting, abdominal pain, diarrhea, constipation, melena. : Denies dysuria, frequency, incontinence, hematuria, urinary retention, flank pain. MUSCULOSKELETAL: Denies weakness, joint pain, or bony pain SKIN: No rash, no erythema, no pruritus NEUROLOGIC: Denies weakness, dizziness, headache, numbness, change in speech, confusion PSYCHIATRIC: No concerning psychosocial issues. 12 point review of systems is negative except for those stated above and HPI Patient History Medical History Coronary artery disease Hyperlipidemia Hypertension Type 2 diabetes mellitus Surgical History History of coronary artery bypass graft x 3 Social History household members: spouse Smoking Status: Former smoker alcohol intake: never Smoking Status: Former smoker Substance Use Type: does not use Exam Initial Vital Signs Initial Vital Signs: Vital Signs Temperature 97.9 F 11/19/21 19:24 Pulse Rate 65 11/19/21 19:24 Respiratory Rate 26 H 11/19/21 19:24 Blood Pressure 167/72 H 11/19/21 19:24 Pulse Oximetry 97 11/19/21 19:24 Oxygen Delivery Method 11/19/21 19:24 GENERAL: Alert 81-year-old male no acute does stress HEENT: Head atraumatic,EOMI, pupils reactive, face symmetric, moist mucous membranes CARDIOVASCULAR: Regular rate and rhythm without murmurs, rubs or gallops. RESPIRATORY: Breath sounds equal bilaterally, mild rales at bases ABDOMEN: Soft, nontender. Normoactive bowel sounds all 4 quadrants. No guarding or rebound. EXTREMITIES: Normal range of motion, no clubbing. +2 the Neurovascularly intact NEUROLOGICAL: Alert and oriented x4.Normal gait and speech. SKIN: Warm, dry, no laceration, no petechiae, no rashes or lesions. Course Orders Ordered: ED Orders 11/20/21 02:40 BMP [Basic Metabolic Panel] Stat Trop I [Troponin I] Stat Discontinued Medications Furosemide (Furosemide 40 Mg/4 Ml Vial) 40 mg IV NOW ONE Stop: 11/19/21 22:30 Last Admin: 11/19/21 22:39 Dose: 40 mg Documented By: ANSELMO Vital Signs Vital signs: Vital Signs - 8 hr 11/20/21 03:04 11/20/21 03:30 Pulse Rate 60 58 L Pulse Oximetry 93 91 MDM - Extremity (Nontraumatic) Lab Data Result diagrams: 11/19/21 19:30 11/20/21 02:40 Labs: Lab Results 11/19/21 11/19/21 11/19/21 Range/Units 19:30 19:30 19:30 WBC 7.4 (4.5-11.0) X10^3/uL RBC 3.19 L (4.5-5.9) X10^6/uL Hgb 8.2 L (13.5-17.5) g/dL Hct 25.9 L (41-53) % MCV 81.4 (80-100) fL MCH 25.8 L (26-34) PG MCHC 31.7 (30-36) % RDW 17.2 H (11.6-14.8) % Plt Count 203 (150-400) X10^3/uL Neut % (Auto) 69.3 (50-75) % Lymph % (Auto) 11.5 L (25-40) % [place] % (Auto) 16.4 H (3-14) % Eos % (Auto) 1.6 L (2-4) % Baso % (Auto) 1.2 (0-2) % Neut # (Auto) 5100 (0504-2166) /uL Lymph # (Auto) 900 L (2779-2758) /uL [place] # (Auto) 1200 H (0-900) /uL Eos # (Auto) 100 (0-450) /uL Baso # (Auto) 100 (0-100) /uL PT 13.6 H (10.1-12.7) SECONDS INR 1.2 (0.9-1.3) APTT 31 (26-36) SECONDS Sodium 128 L (137-145) mmol/L Potassium 5.9 H (3.4-5.1) mmol/L Chloride 96 L (98-107) mmol/L Carbon Dioxide 21 L (22-32) mmol/L BUN 34 H (9-20) mg/dL Creatinine 1.66 H (0.66-1.25) mg/dL Estimated GFR 41 L (>60) mL/min BUN/Creatinine Ratio 20.5 (6-22) Glucose 194 H (80-110) mg/dL Calcium 8.0 L (8.4-10.2) mg/dL Magnesium 1.9 (1.6-2.3) mg/dL Total Bilirubin 0.4 (0.2-1.3) mg/dL AST 28 (17-59) IU/L ALT 15 (<50) IU/L Alkaline Phosphatase 92 (38-126) U/L Total Creatine Kinase 49 L (55-170) U/L CK-MB (CK-2) TNP CK-MB (CK-2) Rel Index TNP Troponin I 0.014 (0.01-0.034) ng/mL NT-Pro-B Natriuret Pep (<450) pg/mL Total Protein 6.8 (6.3-8.2) g/dL Albumin 3.7 (3.5-5.0) g/dL Globulin 3.1 (1.7-4.1) g/dL Albumin/Globulin Ratio 1.2 (1.0-2.8) Lipase 75 (23-300) U/L SARS-CoV-2 (PCR) (Negative) 11/19/21 11/19/21 11/20/21 Range/Units 19:30 19:30 02:40 WBC (4.5-11.0) X10^3/uL RBC (4.5-5.9) X10^6/uL Hgb (13.5-17.5) g/dL Hct (41-53) % MCV (80-100) fL MCH (26-34) PG MCHC (30-36) % RDW (11.6-14.8) % Plt Count (150-400) X10^3/uL Neut % (Auto) (50-75) % Lymph % (Auto) (25-40) % [place] % (Auto) (3-14) % Eos % (Auto) (2-4) % Baso % (Auto) (0-2) % Neut # (Auto) (1767-4949) /uL Lymph # (Auto) (8283-1506) /uL [place] # (Auto) (0-900) /uL Eos # (Auto) (0-450) /uL Baso # (Auto) (0-100) /uL PT (10.1-12.7) SECONDS INR (0.9-1.3) APTT (26-36) SECONDS Sodium (137-145) mmol/L Potassium (3.4-5.1) mmol/L Chloride (98-107) mmol/L Carbon Dioxide (22-32) mmol/L BUN (9-20) mg/dL Creatinine (0.66-1.25) mg/dL Estimated GFR (>60) mL/min BUN/Creatinine Ratio (6-22) Glucose (80-110) mg/dL Calcium (8.4-10.2) mg/dL Magnesium (1.6-2.3) mg/dL Total Bilirubin (0.2-1.3) mg/dL AST (17-59) IU/L ALT (<50) IU/L Alkaline Phosphatase (38-126) U/L Total Creatine Kinase (55-170) U/L CK-MB (CK-2) CK-MB (CK-2) Rel Index Troponin I 0.018 (0.01-0.034) ng/mL NT-Pro-B Natriuret Pep 6200 H (<450) pg/mL Total Protein (6.3-8.2) g/dL Albumin (3.5-5.0) g/dL Globulin (1.7-4.1) g/dL Albumin/Globulin Ratio (1.0-2.8) Lipase (23-300) U/L SARS-CoV-2 (PCR) Negative (Negative) 11/20/21 Range/Units 02:40 WBC (4.5-11.0) X10^3/uL RBC (4.5-5.9) X10^6/uL Hgb (13.5-17.5) g/dL Hct (41-53) % MCV (80-100) fL MCH (26-34) PG MCHC (30-36) % RDW (11.6-14.8) % Plt Count (150-400) X10^3/uL Neut % (Auto) (50-75) % Lymph % (Auto) (25-40) % [place] % (Auto) (3-14) % Eos % (Auto) (2-4) % Baso % (Auto) (0-2) % Neut # (Auto) (4034-7141) /uL Lymph # (Auto) (0854-0800) /uL [place] # (Auto) (0-900) /uL Eos # (Auto) (0-450) /uL Baso # (Auto) (0-100) /uL PT (10.1-12.7) SECONDS INR (0.9-1.3) APTT (26-36) SECONDS Sodium 129 L (137-145) mmol/L Potassium 5.6 H (3.4-5.1) mmol/L Chloride 97 L (98-107) mmol/L Carbon Dioxide 24 (22-32) mmol/L BUN 35 H (9-20) mg/dL Creatinine 1.67 H (0.66-1.25) mg/dL Estimated GFR 41 L (>60) mL/min BUN/Creatinine Ratio 21.0 (6-22) Glucose 169 H (80-110) mg/dL Calcium 8.0 L (8.4-10.2) mg/dL Magnesium (1.6-2.3) mg/dL Total Bilirubin (0.2-1.3) mg/dL AST (17-59) IU/L ALT (<50) IU/L Alkaline Phosphatase (38-126) U/L Total Creatine Kinase (55-170) U/L CK-MB (CK-2) CK-MB (CK-2) Rel Index Troponin I (0.01-0.034) ng/mL NT-Pro-B Natriuret Pep (<450) pg/mL Total Protein (6.3-8.2) g/dL Albumin (3.5-5.0) g/dL Globulin (1.7-4.1) g/dL Albumin/Globulin Ratio (1.0-2.8) Lipase (23-300) U/L SARS-CoV-2 (PCR) (Negative) Imaging Data Chest x-ray: Radiologist's Impression: Signed Patient: Zeke Caal MR#: [id number] : 1940 Acct:[id number] Age/Sex: 81 / M Date of Service: 11/19/21 Loc: ED Accession Number: [id number] ?? Procedure: XR chest 1V Ordering Provider: Donna Montelongo D.O. PROCEDURE:? XR CHEST 1V ? INDICATIONS:? chest pain ? TECHNIQUE:? One view of the chest was acquired.? ? COMPARISON:? [facility], , XR CHEST 2V, 11/19/2021, 10:33. ? FINDINGS:? ? Surgical changes and devices:? Median sternotomy wires are present and appear intact.? Findings of prior CABG.? ? Lungs and pleura:? Diffuse interstitial prominence.? There is central vascular congestion.? Bilateral pleural effusions.? No pneumothorax.? No focal consolidations. ? Mediastinum:? Mediastinal contours appear stable.? Heart size is enlarged.? ? Bones and chest wall:? No suspicious bony lesions.? Overlying soft tissues appear unremarkable.? ? IMPRESSION:? Cardiomegaly with findings compatible with CHF/pulmonary edema. ? ? Dictated by: Ramiro Walters M.D. on 11/19/2021 at 21:34? ECG Data Interpretation: Normal sinus rhythm rate 62 LA interval 182 QRS 156 QTC 477 left bundle-branch noted similar to previous E[place] [address] changes or ischemic changes EKG 2. Sinus rhythm rate 59 similar to prior wrist MDM Narrative Medical decision making narrative: Patient does have a history of congestive heart failure he is on Lasix. He is found to be congestive heart failure exacerbation BNP today is elevated 6000 all. He did have +3 pitting edema however he was given Lasix in actually has helped he has urinated multiple times. Ambulation trial here in the ED he short of breath but able to walk further than he has previously O2 sat did drop to 88% but it did go up once he stopped. He has 2- troponins EKGs do not show any abnormality. Symptoms are most consistent with congestive heart failure unlikely to be coronary artery disease pulmonary embolism Discharge Plan Departure Patient Disposition: Home Clinical Impression: Congestive heart failure Activity Restrictions/Additional Instructions: *You have been diagnosed with congestive heart failure *What to do: At this time you do have fluid on your lungs. I am glad that you are feeling better. Your potassium was also noted to be elevated, it is trending down words. Please have it rechecked later this week with her primary care provider *Continue to take medications as directed Furosemide 40 mg once a day in the morning for 3 days then resume 20 mg once daily *Follow up with your primary care provider in 2-3 days or call [phone] *Return to ER if you should have increasing shortness of breath swelling fever chest pain or any new, worsening or concerning symptoms Prescriptions: No Action amlodipine [Norvasc] 10 mg tablet 10 tab PO 1XD Label Comments: TAKE ONE TABLET BY MOUTH ONE TIME DAILY metformin 500 mg tablet 500 tab PO 1XD Label Comments: TAKE 1 TABLET BY MOUTH EVERY morning AND 2 TABLETS EVERY evening carvedilol [Coreg] 12.5 mg tablet 12.5 tab PO 2XD Label Comments: TAKE ONE TABLET BY MOUTH TWICE DAILY ondansetron HCl 8 mg tablet 8 tab PO 1-2XD MDD 16 PRN (Reason: Nausea) Label Comments: TAKE ONE TABLET BY MOUTH TWICE DAILY isosorbide mononitrate 30 mg tablet extended release 24 hr 30 tab PO 1XD Label Comments: TAKE ONE TABLET BY MOUTH ONE TIME DAILY clopidogrel [Plavix] 75 mg tablet 75 tab PO 1XD Label Comments: TAKE ONE TABLET BY MOUTH ONE TIME DAILY doxazosin [Cardura] 8 mg tablet 8 tab PO 1XD Label Comments: TAKE ONE TABLET BY MOUTH ONE TIME DAILY pravastatin 80 mg tablet 80 tab PO 1XD furosemide [Lasix] 20 mg tablet 20 tab PO 1XD Label Comments: TAKE ONE TABLET BY MOUTH ONE TIME DAILY losartan 100 mg tablet 100 tab PO 1XD Label Comments: TAKE ONE TABLET BY MOUTH ONE TIME DAILY insulin glargine [Lantus Solostar U-100 Insulin] 100 unit/mL (3 mL) insulin pen 36 ea SUBCUT 1XD Label Comments: INJECT 30 UNITS UNDER THE SKIN ONCE DAILY pantoprazole 40 mg tablet,delayed release (DR/EC) 40 mg PO BID Qty: 60 0RF cefpodoxime 100 mg tablet 100 mg PO BID Qty: 4 0RF Rx Instructions: must administer with a meal/food metformin 500 mg Tablet 1,000 mg PO QPM Referrals: Albert Sanchez DO [Primary Care Provider] - Visit Report Forms: Patient Portal/API
[2021-11-20 03:00] LABS: Blood Urea Nitrogen 35 mg/dL (9-20); Carbon Dioxide 24 mmol/L (22-32); Chloride 97 mmol/L (98-107); Estimated Glomerular Filt Rate 41 mL/min (>60); Glucose 169 mg/dL (80-110); HEMOLYSIS < 15 (0-50); Sodium 129 mmol/L (137-145)
[2021-11-20 03:04] VITALS: PULSE 60; O2SAT 93
[2021-11-20 03:06] LABS: Potassium 5.6 mmol/L (3.4-5.1)
[2021-11-20 03:12] LABS: Troponin I 0.018 ng/mL (0.01-0.034)
[2021-11-20 03:30] VITALS: PULSE 58; O2SAT 91
== END 2021-11-20 05:03 | disposition home or self-care (01) ==
PROVIDERS: Emergency Provider Emergency Medicine; PCP Family Medicine
DX: I50.9 Heart failure, unspecified (principal); R07.9 Chest pain, unspecified; Z20.822 Contact with and (suspected) exposure to COVID-19; Z79.01 Long term (current) use of anticoagulants; R06.01 Orthopnea; I51.7 Cardiomegaly; Z95.1 Presence of aortocoronary bypass graft
CPT/HCPCS: 36415; 71045; 71046; 80048; 80053; 82550; 83690; 83735; 83880; 84484; 85025; 85610; 85730; 87635; 93005; 93010; 96374; 99284; C9803; J1940

== ENCOUNTER 2022-01-08 08:54 | Inpatient (IN) | payer MEDICARE, SELFPAY ==
[2021-07-28 18:40] VITALS: BMI 31.1
[2022-01-08] VITALS (16 sets, daily range): BP systolic 108–133; BP diastolic 34–62; PULSE 47–51; RESP 18–28; TEMP 35.8–36.6; O2SAT 85–97; BMI 32.5
--- NOTE | 2022-01-08 09:15 | PC.NURSE ---
first set of blood cx drawn if needed and sent to lab.
--- NOTE | 2022-01-08 09:19 | ED.GENADULT ---
HPI - General Adult General Chief complaint: Shortness of Breath/Dyspnea Stated complaint: SOB,congestion & cough Time Seen by Provider: 01/08/22 09:13 Source: patient Mode of arrival: Wheelchair Limitations: no limitations History of Present Illness HPI narrative: Patient is a 81-year-old male. An insulin-dependent diabetic. History of coronary artery disease. History of coronary artery bypass graft in 2002. Also has a history of CHF. Recently had an increase in his Lasix from 20 mg a day to 40 mg a day and now for the past couple days it has been 80 mg a day. 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 This was after he started to gain weight after the . He feels like he is urinating quite a bit. His lower extremity swelling has improved however he is still having quite a bit of cough and congestion and shortness of breath to the point where any sort of activity causes him to have to stop and rest. He is also producing a frothy sputum. No fevers. No chest pain. Related Data Home Medications Medication Instructions Recorded Confirmed amlodipine 10 mg tablet (Norvasc) 10 tab PO 1XD 07/28/21 01/08/22 carvedilol 12.5 mg tablet (Coreg) 12.5 tab PO 2XD 07/28/21 01/08/22 clopidogrel 75 mg tablet (Plavix) 75 tab PO 1XD 07/28/21 01/08/22 doxazosin 8 mg tablet (Cardura) 8 tab PO 1XD 07/28/21 01/08/22 furosemide 20 mg tablet (Lasix) 40 tab PO BID 07/28/21 01/08/22 insulin glargine 100 unit/mL (3 36 ea SUBCUT 1XD 07/28/21 01/08/22 mL) subcutaneous pen (Lantus Solostar U-100 Insulin) isosorbide mononitrate 30 mg 30 tab PO 1XD 07/28/21 01/08/22 tablet,extended release 24 hr losartan 100 mg tablet 100 tab PO 1XD 07/28/21 01/08/22 metformin 500 mg tablet 500 tab PO 1XD 07/28/21 01/08/22 pravastatin 80 mg tablet 80 tab PO 1XD 07/28/21 01/08/22 metformin 500 mg tablet 1,000 mg PO QPM 08/01/21 01/08/22 fluticasone furoate 200 200 mcg inhalation DAILY 01/08/22 01/08/22 mcg/actuation blister powder for inhalation (Arnuity Ellipta) fluticasone propionate 50 1 spray intranasal DAILY 01/08/22 01/08/22 mcg/actuation nasal spray,suspension Previous Rx's Medication Instructions Recorded pantoprazole 40 mg tablet,delayed 40 mg PO BID #60 tabs 08/01/21 release Allergies Allergy/AdvReac Type Severity Reaction Status Date / Time No Known Drug Allergies Allergy Verified 01/08/22 12:14 Review of Systems Constitutional Constitutional: Reports system reviewed and no additional complaints, except as documented Cardiovascular Cardiovascular: Reports system reviewed and no additional complaints, except as documented Respiratory Respiratory: Reports system reviewed and no additional complaints, except as documented Gastrointestinal Gastrointestinal: Reports system reviewed and no additional complaints, except as documented Musculoskeletal Musculoskeletal: Reports system reviewed and no additional complaints, except as documented Integumentary/Breasts Skin/Breast: Reports system reviewed and no additional complaints, except as documented Neurologic Neurologic: Reports system reviewed and no additional complaints, except as documented Hematologic/Lymphatic On Anticoagulants: No Patient History Medical History Coronary artery disease Hyperlipidemia Hypertension Type 2 diabetes mellitus Surgical History History of coronary artery bypass graft x 3 Social History household members: spouse Smoking Status: Former smoker alcohol intake: never Smoking Status: Former smoker Substance Use Type: does not use Exam Initial Vital Signs Initial Vital Signs: Vital Signs Temperature 97.8 F 01/08/22 08:54 Pulse Rate 51 L 01/08/22 08:54 Respiratory Rate 28 H 01/08/22 08:54 Blood Pressure 114/53 L 01/08/22 08:54 Pulse Oximetry 85 L 01/08/22 08:54 Oxygen Delivery Method 01/08/22 08:54 HENMT Head: normal to inspection and normocephalic Resp Effort & Inspection: not labored, no respiratory distress and tachypneic Auscultation: crackles and rhonchi Cardio Rate: regular rate Rhythm: regular rhythm GI Inspection: normal to inspection Skin General: no rashes or lesions noted Lesions: no lesions Neuro General: patient alert, patient awake and moves all extremities Speech: speech normal Extrem General: capillary refill normal and edema Psych Appearance: grossly normal and well kempt Course Orders Ordered: ED Orders 01/08/22 09:05 Complete Blood Count AUTO DIFF Stat Comprehensive Metabolic Panel Stat Lactate (Lactic Acid) Stat Lipase Stat Magnesium Stat NT-proBNP (BNP-Adult 18+) Stat Partial Thromboplastin Time Stat Procalcitonin Stat Prothrombin Time INR Stat Respiratory Panel (Film Array) Stat Troponin & CK Cardiac Panel Stat 01/08/22 09:21 XR chest 1V Stat Acetaminophen (Acetaminophen 325 Mg Tablet) 650 mg PO Q6H PRN PRN Reason: Fever/Mild Pain (1-3) Heparin Sodium (Porcine) (Heparin 5,000 Unit/Ml Vial) 5,000 unit SUBCUT BID LUISA Furosemide 60 mg/ Sodium (Chloride) 56 mls @ 112 mls/hr IV Q12H LUISA Last Admin: 01/08/22 13:21 Dose: 112 mls/hr Documented By: LAMAR Isosorbide Mononitrate (Isosorbide Mononitrate Er 30 Mg Tablet) 30 mg PO DAILY LUISA Naloxone HCl (Naloxone 0.4 Mg/Ml Vial) 0.2 mg IV Q2MIN PRN PRN Reason: Opiate Reversal Ondansetron HCl (Ondansetron 4 Mg/2 Ml Inj) 4 mg IV Q8HR PRN PRN Reason: Nausea And Vomiting Oseltamivir Phosphate (Oseltamivir 30 Mg Capsule) 30 mg PO BID LUISA Pravastatin Sodium (Pravastatin 20 Mg Tablet) 80 mg PO DAILY LUISA Discontinued Medications Furosemide 60 mg/ Sodium (Chloride) 56 mls @ 112 mls/hr IV NOW ONE Stop: 01/08/22 09:20 Last Infusion: 01/08/22 10:12 Dose: 0 mls/hr Documented By: Admin: 01/08/22 09:51 Dose: 112 mls/hr Documented By: GONSALO Oseltamivir Phosphate (Oseltamivir 75 Mg Capsule) 75 mg PO NOW ONE Stop: 01/08/22 10:46 Last Admin: 01/08/22 10:58 Dose: Not Given Documented By: GONSALO Oseltamivir Phosphate (Oseltamivir 30 Mg Capsule) 30 mg PO NOW ONE Stop: 01/08/22 11:01 Last Admin: 01/08/22 11:02 Dose: 30 mg Documented By: GONSALO Vital Signs Vital signs: Vital Signs - 8 hr 01/08/22 08:54 01/08/22 09:15 01/08/22 09:00 Temperature 97.8 F Pulse Rate 51 L 50 L 49 L Respiratory Rate 28 H 24 Blood Pressure 114/53 L Pulse Oximetry 85 L 97 87 L Oxygen Delivery Method Room Air Nasal Cannula Room Air Oxygen Flow Rate 01/08/22 09:01 01/08/22 09:01 01/08/22 09:30 Temperature Pulse Rate 49 L Respiratory Rate 25 H Blood Pressure 114/53 L Pulse Oximetry 85 L 94 Oxygen Delivery Method Room Air Nasal Cannula Oxygen Flow Rate 2 01/08/22 09:31 01/08/22 09:31 01/08/22 10:00 Temperature Pulse Rate 50 L 48 L Respiratory Rate 19 24 Blood Pressure 114/58 L Pulse Oximetry 94 95 Oxygen Delivery Method Nasal Cannula Nasal Cannula Oxygen Flow Rate 2 2 01/08/22 10:01 01/08/22 10:01 01/08/22 10:30 Temperature Pulse Rate 48 L 48 L Respiratory Rate 28 H 21 Blood Pressure 119/57 L Pulse Oximetry 96 95 Oxygen Delivery Method Nasal Cannula Oxygen Flow Rate 2 01/08/22 10:31 01/08/22 10:31 01/08/22 10:30 Temperature Pulse Rate 47 L 50 L Respiratory Rate 19 27 H Blood Pressure 133/62 Pulse Oximetry 96 87 L Oxygen Delivery Method Room Air Oxygen Flow Rate 01/08/22 11:00 01/08/22 11:01 01/08/22 11:01 Temperature Pulse Rate 48 L 47 L Respiratory Rate 19 18 Blood Pressure 124/58 L Pulse Oximetry 95 93 Oxygen Delivery Method Nasal Cannula Nasal Cannula Oxygen Flow Rate 2 2 Medical Decision Making Lab Data Lab results reviewed: Yes I reviewed the patient's lab results. Result diagrams: 01/08/22 09:05 01/08/22 09:05 Labs: Lab Results 01/08/22 01/08/22 01/08/22 Range/Units 09:05 09:05 09:05 WBC 5.3 (4.5-11.0) X10^3/uL RBC 3.54 L (4.5-5.9) X10^6/uL Hgb 9.0 L (13.5-17.5) g/dL Hct 28.9 L (41-53) % MCV 81.6 (80-100) fL MCH 25.3 L (26-34) PG MCHC 31.0 (30-36) % RDW 20.0 H (11.6-14.8) % Plt Count 160 (150-400) X10^3/uL Neut % (Auto) 71.7 (50-75) % Lymph % (Auto) 11.2 L (25-40) % [place] % (Auto) 16.0 H (3-14) % Eos % (Auto) 0.4 L (2-4) % Baso % (Auto) 0.7 (0-2) % Neut # (Auto) 3800 (5414-7047) /uL Lymph # (Auto) 600 L (9336-8463) /uL [place] # (Auto) 900 (0-900) /uL Eos # (Auto) 0 (0-450) /uL Baso # (Auto) 0 (0-100) /uL PT 14.1 H (10.1-12.7) SECONDS INR 1.2 (0.9-1.3) APTT 29 (26-36) SECONDS Sodium 129 L (137-145) mmol/L Potassium 4.4 (3.4-5.1) mmol/L Chloride 92 L (98-107) mmol/L Carbon Dioxide 22 (22-32) mmol/L BUN 56 H (9-20) mg/dL Creatinine 2.16 H (0.66-1.25) mg/dL Estimated GFR 30 L (>60) mL/min BUN/Creatinine Ratio 25.9 H (6-22) Glucose 127 H (80-110) mg/dL Lactate (0.7-2.1) mmol/L Calcium 7.8 L (8.4-10.2) mg/dL Magnesium 1.9 (1.6-2.3) mg/dL Total Bilirubin 0.4 (0.2-1.3) mg/dL AST 30 (17-59) IU/L ALT 23 (<50) IU/L Alkaline Phosphatase 96 (38-126) U/L Total Creatine Kinase 50 L (55-170) U/L CK-MB (CK-2) TNP CK-MB (CK-2) Rel Index TNP Troponin I 0.018 (0.01-0.034) ng/mL NT-Pro-B Natriuret Pep 8170 H (<450) pg/mL Total Protein 7.0 (6.3-8.2) g/dL Albumin 3.9 (3.5-5.0) g/dL Globulin 3.1 (1.7-4.1) g/dL Albumin/Globulin Ratio 1.3 (1.0-2.8) Lipase 958 H (23-300) U/L Procalcitonin 0.16 (<0.5) ng/mL Chlamy pneumoniae PCR (Not Detect) Adenovirus (PCR) (Not Detect) B. pertussis DNA (PCR) (Not Detecte) B.parapertussis DNA PCR (Not Detecte) Coronavirus OC43 (PCR) (Not Detect) Coronavirus HKU1 (PCR) (Not Detect) Coronavirus 229E (PCR) (Not Detect) SARS-CoV-2 (PCR) (Not Detecte) Coronavirus NL63 (PCR) (Not Detect) Human Metapneumovir PCR (Not Detect) Influenza Type A (PCR) (Not Detect) Influenza Type B (PCR) (Not Detect) M. pneumoniae (PCR) (Not Detect) Parainfluenza 1 (PCR) (Not Detect) Parainfluenza 2 (PCR) (Not Detect) Parainfluenza 3 (PCR) (Not Detect) Parainfluenza 4 (PCR) (Not Detect) RSV (PCR) (Not Detect) Entero/Rhino (PCR) (Not Detect) 01/08/22 01/08/22 Range/Units 09:05 09:05 WBC (4.5-11.0) X10^3/uL RBC (4.5-5.9) X10^6/uL Hgb (13.5-17.5) g/dL Hct (41-53) % MCV (80-100) fL MCH (26-34) PG MCHC (30-36) % RDW (11.6-14.8) % Plt Count (150-400) X10^3/uL Neut % (Auto) (50-75) % Lymph % (Auto) (25-40) % [place] % (Auto) (3-14) % Eos % (Auto) (2-4) % Baso % (Auto) (0-2) % Neut # (Auto) (4852-4476) /uL Lymph # (Auto) (1017-4485) /uL [place] # (Auto) (0-900) /uL Eos # (Auto) (0-450) /uL Baso # (Auto) (0-100) /uL PT (10.1-12.7) SECONDS INR (0.9-1.3) APTT (26-36) SECONDS Sodium (137-145) mmol/L Potassium (3.4-5.1) mmol/L Chloride (98-107) mmol/L Carbon Dioxide (22-32) mmol/L BUN (9-20) mg/dL Creatinine (0.66-1.25) mg/dL Estimated GFR (>60) mL/min BUN/Creatinine Ratio (6-22) Glucose (80-110) mg/dL Lactate 1.0 (0.7-2.1) mmol/L Calcium (8.4-10.2) mg/dL Magnesium (1.6-2.3) mg/dL Total Bilirubin (0.2-1.3) mg/dL AST (17-59) IU/L ALT (<50) IU/L Alkaline Phosphatase (38-126) U/L Total Creatine Kinase (55-170) U/L CK-MB (CK-2) CK-MB (CK-2) Rel Index Troponin I (0.01-0.034) ng/mL NT-Pro-B Natriuret Pep (<450) pg/mL Total Protein (6.3-8.2) g/dL Albumin (3.5-5.0) g/dL Globulin (1.7-4.1) g/dL Albumin/Globulin Ratio (1.0-2.8) Lipase (23-300) U/L Procalcitonin (<0.5) ng/mL Chlamy pneumoniae PCR Not detected (Not Detect) Adenovirus (PCR) Not detected (Not Detect) B. pertussis DNA (PCR) Not detected (Not Detecte) B.parapertussis DNA PCR Not detected (Not Detecte) Coronavirus OC43 (PCR) Not detected (Not Detect) Coronavirus HKU1 (PCR) Not detected (Not Detect) Coronavirus 229E (PCR) Not detected (Not Detect) SARS-CoV-2 (PCR) Not detected (Not Detecte) Coronavirus NL63 (PCR) Not detected (Not Detect) Human Metapneumovir PCR Not detected (Not Detect) Influenza Type A (PCR) Detected H (Not Detect) Influenza Type B (PCR) Not detected (Not Detect) M. pneumoniae (PCR) Not detected (Not Detect) Parainfluenza 1 (PCR) Not detected (Not Detect) Parainfluenza 2 (PCR) Not detected (Not Detect) Parainfluenza 3 (PCR) Not detected (Not Detect) Parainfluenza 4 (PCR) Not detected (Not Detect) RSV (PCR) Not detected (Not Detect) Entero/Rhino (PCR) Not detected (Not Detect) Imaging Data Chest x-ray: Radiologist's Impression: [address] [address] XRay Report Signed Patient: Zeke Caal MR#: [id number] : 1940 Acct:[id number] Age/Sex: 81 / M Date of Service: 01/08/22 Loc: Accession Number: [id number] ?? Procedure: XR chest 1V Ordering Provider: Juan Jang D.O. PROCEDURE:? XR CHEST 1V ? INDICATIONS:? Cough congestive heart failure ? TECHNIQUE:? One view of the chest was acquired.? ? COMPARISON:? [facility], , XR CHEST 1V, 11/19/2021, 19:48. ? FINDINGS:? ? Surgical changes and devices:? Patient is status post median sternotomy. ? Lungs and pleura:? There are bilateral basilar pulmonary radiopacities which are more confluent on the right than on the left.? There is a small right pleural effusion.? There is diffuse interstitial prominence throughout both lungs. ? Mediastinum:? Mediastinal contours appear normal.? Heart size is enlarged, as before. ? Bones and chest wall:? No suspicious bony lesions.? Overlying soft tissues appear unremarkable.? ? IMPRESSION:? ? 1. Bibasilar pulmonary consolidation and right pleural effusion suggesting multifocal pneumonia. ? 2. Cardiomegaly and interstitial prominence suggesting fluid overload. ? ? Dictated by: Libra Aguila M.D. on 01/08/2022 at 9:59 ? ? Approved by: Libra Aguila M.D. on 01/08/2022 at 10:00 MDM Narrative Medical decision making narrative: Influenza A-positive. Also have say elevation in his BNP and is hives the fluid overloaded. Was given Lasix. He did diurese a small amount here in the ER. Given his need for oxygen, fluid overload, influenza A positive status, chest x-ray findings will admit to the hospital for further evaluation and treatment. Discussed the need for admission with Dr. Sutton on-call for Hospital Medicine who will admit for further evaluation. Discussed the need for admission with the patient who expressed understanding and agreement as well. Discharge Plan Departure Patient Disposition: Admitted As Inpatient Clinical Impression: Influenza A, CHF (congestive heart failure), Hypoxia Admit Date/Time: 01/08/22 11:08 Admit Provider: Ishaan Sutton
--- NOTE | 2022-01-08 09:21 | DI.RAD.S_ITS ---
PROCEDURE: XR CHEST 1V INDICATIONS: Cough congestive heart failure TECHNIQUE: One view of the chest was acquired. COMPARISON: [facility], CR, XR CHEST 1V, 11/19/2021, 19:48. FINDINGS: Surgical changes and devices: Patient is status post median sternotomy. Lungs and pleura: There are bilateral basilar pulmonary radiopacities which are more confluent on the right than on the left. There is a small right pleural effusion. There is diffuse interstitial prominence throughout both lungs. Mediastinum: Mediastinal contours appear normal. Heart size is enlarged, as before. Bones and chest wall: No suspicious bony lesions. Overlying soft tissues appear unremarkable. IMPRESSION: 1. Bibasilar pulmonary consolidation and right pleural effusion suggesting multifocal pneumonia. 2. Cardiomegaly and interstitial prominence suggesting fluid overload. Dictated by: Libra Aguila M.D. on 01/08/2022 at 9:59 Approved by: Libra Aguila M.D. on 01/08/2022 at 10:00
[2022-01-08 09:30] LABS: Add Manual Diff / Slide Review NO; Basophils Absolute Auto 0 /uL (0-100); Basophils Percent Auto 0.7 % (0-2); Eosinophils Absolute Auto 0 /uL (0-450); Eosinophils Percent Auto 0.4 % (2-4); Hematocrit 28.9 % (41-53); Lymphocytes Absolute Auto 600 /uL (1100-4500); Lymphocytes Percent Auto 11.2 % (25-40); Mean Corpuscular Hemoglobin 25.3 PG (26-34); Mean Corpuscular Volume 81.6 fL (80-100); Monocytes Absolute Auto 900 /uL (0-900); Neutrophils Absolute Auto 3800 /uL (1500-7000); Neutrophils Percent Auto 71.7 % (50-75); Platelet Count 160 X10^3/uL (150-400); Red Blood Cell Count 3.54 X10^6/uL (4.5-5.9); White Blood Cell Count 5.3 X10^3/uL (4.5-11.0)
[2022-01-08 09:34] LABS: INR 1.2 (0.9-1.3); Prothrombin Time 14.1 SECONDS (10.1-12.7)
[2022-01-08 09:37] LABS: PTT Partial Thromboplastin Tim 29 SECONDS (26-36)
[2022-01-08 09:40] LABS: Alanine Aminotransferase 23 IU/L (<50); Albumin 3.9 g/dL (3.5-5.0); Albumin Globulin Ratio 1.3 (1.0-2.8); Alkaline Phosphatase 96 U/L (38-126); Aspartate Aminotransferase 30 IU/L (17-59); BUN Creatinine Ratio 25.9 (6-22); Bilirubin Total 0.4 mg/dL (0.2-1.3); Blood Urea Nitrogen 56 mg/dL (9-20); Calcium 7.8 mg/dL (8.4-10.2); Carbon Dioxide 22 mmol/L (22-32); Chloride 92 mmol/L (98-107); Creatine Kinase 50 U/L (55-170); Estimated Glomerular Filt Rate 30 mL/min (>60); Globulin 3.1 g/dL (1.7-4.1); Glucose 127 mg/dL (80-110); HEMOLYSIS < 15 (0-50); Lipase 958 U/L (23-300); Magnesium 1.9 mg/dL (1.6-2.3); Potassium 4.4 mmol/L (3.4-5.1); Sodium 129 mmol/L (137-145)
[2022-01-08] MEDS: FUROSEMIDE 60 MG in SODIUM CHLORIDE 0.9% 50 ML 112 MG IV ×3 (09:51→23:58)
[2022-01-08 09:52] LABS: NT-proBNP (BNP-Adult 18+) 8170 pg/mL (<450); Troponin I 0.018 ng/mL (0.01-0.034)
[2022-01-08 09:57] LABS: Procalcitonin 0.16 ng/mL (<0.5)
[2022-01-08 10:16] LABS: Adenovirus Not Detected (Not Detect); B. parapertussis Not Detected (Not Detecte); Bordetella pertussis Not Detected (Not Detecte); Chlamydophila pneumoniae Not Detected (Not Detect); Coronavirus 229E Not Detected (Not Detect); Coronavirus HKU1 Not Detected (Not Detect); Coronavirus NL 63 Not Detected (Not Detect); Coronavirus OC43 Not Detected (Not Detect); Human Metapneumovirus Not Detected (Not Detect); Human Rhinovirus/Enterovirus Not Detected (Not Detect); Influenza A Detected (Not Detect); Influenza B Not Detected (Not Detect); Mycoplasma pneumoniae Not Detected (Not Detect); Parainfluenza Virus 1 Not Detected (Not Detect); Parainfluenza Virus 2 Not Detected (Not Detect); Parainfluenza Virus 3 Not Detected (Not Detect); Parainfluenza Virus 4 Not Detected (Not Detect); Respiratory Syncytial Virus Not Detected (Not Detect); SARS- CoV-2 Not Detected (Not Detecte)
[2022-01-08] MEDS: OSELTAMIVIR 30 MG CAPSULE PO ×2 (11:02→20:57)
--- NOTE | 2022-01-08 12:22 | DI.ECHO.S_ITS ---
[facility] +---------+ : : [address] : : : : [id number] : : : : Phone: [phone] Echocardiogram Report + + :Name: DALLAS TORRES Study Date: 01/09/2022 Height: 75 in : :[facility] ReadingLocation: Weight: 260 lb : : Gender: Male BSA: 2.5 m2 : :: 1940 Age: 81 yrs BP: 124/58 mmHg: :Reason For Study: CONGESTIVE HEART FAILURE : :Ordering Physician: JAME, : :LUPE Performed By: Yuli Rdz : :Referring: LUPE KILGORE : + + Interpretation Summary Left ventricular ejection fraction is estimated to be 30 +/- 5%. There is moderate to severe global hypokinesis of the left ventricle. There is septal wall severe hypokinesis. There is posterolateral wall hypokinesis. There is severe biatrial enlargement. There is mild mitral regurgitation. The aortic valve is mildly calcified. There is mild aortic regurgitation. There is moderate tricuspid regurgitation. The right ventricular systolic pressure is estimated to be at least 70 mmHg based on an estimated right atrial pressure of 15 mm Hg. Procedure: A two-dimensional transthoracic echocardiogram with color flow and Doppler was performed. The study quality was technically adequate. There is no prior echocardiogram noted for this patient. The patient was in atrial fibrillation with heart rates between 49-75 bpm during the exam. Left Ventricle: The estimated left ventricular end diastolic volume is 175 ml. The left ventricle is moderate-severely dilated. Left ventricular ejection fraction is estimated to be 30 +/- 5%. There is moderate to severe global hypokinesis of the left ventricle. There is septal wall severe hypokinesis. There is posterolateral wall hypokinesis. Diastolic function could not be accurately assessed due to atrial fibrillation. Right Ventricle: The right ventricle is normal size. Right ventricular systolic function is at the lower limits of normal. Atria: The left atrium is severely dilated. There is severe biatrial enlargement. The right atrium is severely dilated. There is no Doppler evidence for an interatrial shunt. Mitral Valve: The mitral valve leaflets are mildly calcified. There is mild mitral annular calcification. There is mild mitral regurgitation. Aortic Valve: The aortic valve is trileaflet. The aortic valve is mildly calcified. The aortic valve opens well. There is no aortic valve stenosis. There is mild aortic regurgitation. Tricuspid Valve: The tricuspid valve leaflets are thin and pliable. There is moderate tricuspid regurgitation. The right ventricular systolic pressure is estimated to be at least 70 mmHg based on an estimated right atrial pressure of 15 mm Hg. Pulmonic Valve: The pulmonic valve leaflets are thin and pliable; valve motion is normal. There is a trace or physiologic amount of pulmonic regurgitation. Great Vessels: The aortic root is normal size. The ascending aorta is mildly enlarged. The IVC is dilated (diameter is greater than 2.1 cm) and it collapses less than 50% with a sniff. This suggests a high right atrial pressure of 15 mm Hg. Pericardium/ Pleura There is no pericardial effusion. There is no pleural effusion. MMode/2D Measurements & Calculations LVIDd: 6.7 cm LVOT diam: 2.3 cm LVIDs: 5.8 cm Ao root diam: 3.2 cm FS: 13.4 % asc Aorta Diam: 3.9 cm EPSS: 2.2 cm IVSd: 1.3 cm LVPWd: 1.0 cm LV garcía. diameter/BSA (cm/m^2): 2.7 LV sys. diameter/BSA (cm/m^2): 2.4 LA A2 area: 32.7 cm2 RA long axis: 7.2 cm LA A4 area: 32.8 cm2 RA area: 32.2 cm2 LA length (vol): 7.1 cm RA vol: 121.3 ml LA vol: 127.6 ml RA : 49.4 ml/m2 LA vol index: 52.0 ml/m2 IVC diam: 2.6 cm RVD1 (basal): 3.6 cm RVD2 (mid): 2.5 cm TAPSE: 1.6 cm Doppler Measurements & Calculations Ao V2 max: 140.0 cm/sec LVOT Max Oliver: 71.6 cm/sec Ao V2 mean: 97.6 cm/sec LV V1 max P.1 mmHg Ao max P.8 mmHg LV V1 VTI: 18.6 cm Ao mean P.3 mmHg BIJU(I,D): 2.2 cm2 Ao V2 VTI: 35.9 cm BIJU(V,D): 2.2 cm2 sev ratio: 0.52 BIJU indexed to BSA (cm^2/m^2): 0.91 MV E max oliver: 123.6 cm/sec TR max oliver: 369.0 cm/sec MV A max oliver: 2.5 cm/sec TR max P.5 mmHg MV E/A: 50.0 PA V2 max: 116.6 cm/sec Med Peak E' Oliver: 6.4 cm/sec PA V2 mean: 71.7 cm/sec E/E' med: 19.5 PA mean P.3 mmHg Lat Peak E' Oliver: 4.7 cm/sec PA pr(Accel): 36.2 mmHg E/E' lat: 26.4 E/e' average: 22.9 MV dec time: 0.31 sec SV(LVOT): 80.5 ml Reading Physician:12:52 PM
--- NOTE | 2022-01-08 15:41 | P.HP_ITS ---
History of Present Illness History of Present Illness Date Patient Seen: 01/08/22 Time Patient Seen: 14:00 Chief complaint: SOB,congestion & cough Narrative: Mr. Caal is an 81M with PMH DM, CAD s/p CABG, CHF who presents to the hospital with shortness of breath. He states he had a big Thanksgiving meal, after this he developed shortness of breath and weight gain. He weighs himself daily. He usually takes 20mg daily, he called his physician who recommended 40mg daily, and he noted no improvement, so then upped it to 80mg daily. He notes his is sick with the flu. He noted no improvement of shortness of breath with the increased lasix. He has no chest pain, no fevers. In the ED workup was done, vitals notable for afebrile, tachypneic in the 20s, satting 85% on room air. He was placed on oxygen. Labs notable for wbc 5.3, hgb 9.0, plts 160. Na 129, BUN 56, creatinine 2.16. BNP 8170. Procal 0.16. Lactate 1.0. Flu A positive. Chest xray read as bibasilar pulmonary consolidation and right pleural effusion suggesting multifocal pneumonia and cardiomegaly and interstitial prominence suggesting fluid overload. He was ordered for tamiflu and lasix and admitted for further treatment. Family history: he denies any CAD or pulmonary diseaes in family history Patient History Medical History Coronary artery disease Hyperlipidemia Hypertension Type 2 diabetes mellitus Surgical History History of coronary artery bypass graft x 3 Family & Social History Social History: household members spouse Prior Living Arrangements House Safety & Behavioral: Feels Safe in Current Yes Environment Been Physically Hurt or No Threatened By a Person Tobacco & Substance use: Smoking Status Former smoker alcohol intake never Substance Use Type does not use Meds Home Medications and Allergies Home Medications Medication Instructions Recorded Confirmed Type amlodipine 10 mg tablet (Norvasc) 10 tab PO 1XD 07/28/21 01/08/22 History carvedilol 12.5 mg tablet (Coreg) 12.5 tab PO 2XD 07/28/21 01/08/22 History clopidogrel 75 mg tablet (Plavix) 75 tab PO 1XD 07/28/21 01/08/22 History doxazosin 8 mg tablet (Cardura) 8 tab PO 1XD 07/28/21 01/08/22 History furosemide 20 mg tablet (Lasix) 40 tab PO BID 07/28/21 01/08/22 History insulin glargine 100 unit/mL (3 36 ea SUBCUT 1XD 07/28/21 01/08/22 History mL) subcutaneous pen (Lantus Solostar U-100 Insulin) isosorbide mononitrate 30 mg 30 tab PO 1XD 07/28/21 01/08/22 History tablet,extended release 24 hr losartan 100 mg tablet 100 tab PO 1XD 07/28/21 01/08/22 History metformin 500 mg tablet 500 tab PO 1XD 07/28/21 01/08/22 History pravastatin 80 mg tablet 80 tab PO 1XD 07/28/21 01/08/22 History metformin 500 mg tablet 1,000 mg PO QPM 08/01/21 01/08/22 History pantoprazole 40 mg tablet,delayed 40 mg PO BID #60 tabs 08/01/21 01/08/22 Rx release fluticasone furoate 200 200 mcg inhalation DAILY 01/08/22 01/08/22 History mcg/actuation blister powder for inhalation (Arnuity Ellipta) fluticasone propionate 50 1 spray intranasal DAILY 01/08/22 01/08/22 History mcg/actuation nasal spray,suspension Allergies Allergy/AdvReac Type Severity Reaction Status Date / Time No Known Drug Allergies Allergy Verified 01/08/22 12:14 Review of Systems Review of Systems Narrative: 14 systems reviewed and negative aside from what is noted in HPI Exam Vital Signs (past 8 hours): - 01/08/22 11:54 01/08/22 13:30 01/08/22 18:00 Temperature 96.5 F L 97.1 F L Pulse Rate 50 L 50 L Respiratory Rate 20 18 Blood Pressure 117/51 L 111/35 L Pulse Oximetry 93 97 Oxygen Delivery Method Room Air Oxygen Flow Rate 2 Oxygen Delivery Method Room Air Oxygen Flow Rate 2 Narrative Exam Narrative: GEN: mild respiratory distress with increased work of breathing HEENT: moist mucous membranes, PERRL NECK: trachea midline, no JVD PULM: crackles bilaterally CV: regular rate and rhythm, no murmurs ABD: soft, nontender, nondistended, no organomegaly, normal bowel sounds EXT: 1+ edema NEURO: awake, alert, oriented, no focal deficits Objective Labs Result Diagrams: 01/08/22 09:05 01/08/22 09:05 Labs: Laboratory Results - last 24 hr 01/08/22 01/08/22 01/08/22 09:05 09:05 09:05 WBC 5.3 RBC 3.54 L Hgb 9.0 L Hct 28.9 L MCV 81.6 MCH 25.3 L MCHC 31.0 RDW 20.0 H Plt Count 160 Neut % (Auto) 71.7 Lymph % (Auto) 11.2 L [place] % (Auto) 16.0 H Eos % (Auto) 0.4 L Baso % (Auto) 0.7 Neut # (Auto) 3800 Lymph # (Auto) 600 L [place] # (Auto) 900 Eos # (Auto) 0 Baso # (Auto) 0 PT 14.1 H INR 1.2 APTT 29 Sodium 129 L Potassium 4.4 Chloride 92 L Carbon Dioxide 22 BUN 56 H Creatinine 2.16 H Estimated GFR 30 L BUN/Creatinine Ratio 25.9 H Glucose 127 H Lactate Calcium 7.8 L Magnesium 1.9 Total Bilirubin 0.4 AST 30 ALT 23 Alkaline Phosphatase 96 Total Creatine Kinase 50 L CK-MB (CK-2) TNP CK-MB (CK-2) Rel Index TNP Troponin I 0.018 NT-Pro-B Natriuret Pep 8170 H Total Protein 7.0 Albumin 3.9 Globulin 3.1 Albumin/Globulin Ratio 1.3 Lipase 958 H Procalcitonin 0.16 Chlamy pneumoniae PCR Adenovirus (PCR) B. pertussis DNA (PCR) B.parapertussis DNA PCR Coronavirus OC43 (PCR) Coronavirus HKU1 (PCR) Coronavirus 229E (PCR) SARS-CoV-2 (PCR) Coronavirus NL63 (PCR) Human Metapneumovir PCR Influenza Type A (PCR) Influenza Type B (PCR) M. pneumoniae (PCR) Parainfluenza 1 (PCR) Parainfluenza 2 (PCR) Parainfluenza 3 (PCR) Parainfluenza 4 (PCR) RSV (PCR) Entero/Rhino (PCR) 01/08/22 01/08/22 09:05 09:05 WBC RBC Hgb Hct MCV MCH MCHC RDW Plt Count Neut % (Auto) Lymph % (Auto) [place] % (Auto) Eos % (Auto) Baso % (Auto) Neut # (Auto) Lymph # (Auto) [place] # (Auto) Eos # (Auto) Baso # (Auto) PT INR APTT Sodium Potassium Chloride Carbon Dioxide BUN Creatinine Estimated GFR BUN/Creatinine Ratio Glucose Lactate 1.0 Calcium Magnesium Total Bilirubin AST ALT Alkaline Phosphatase Total Creatine Kinase CK-MB (CK-2) CK-MB (CK-2) Rel Index Troponin I NT-Pro-B Natriuret Pep Total Protein Albumin Globulin Albumin/Globulin Ratio Lipase Procalcitonin Chlamy pneumoniae PCR Not detected Adenovirus (PCR) Not detected B. pertussis DNA (PCR) Not detected B.parapertussis DNA PCR Not detected Coronavirus OC43 (PCR) Not detected Coronavirus HKU1 (PCR) Not detected Coronavirus 229E (PCR) Not detected SARS-CoV-2 (PCR) Not detected Coronavirus NL63 (PCR) Not detected Human Metapneumovir PCR Not detected Influenza Type A (PCR) Detected H Influenza Type B (PCR) Not detected M. pneumoniae (PCR) Not detected Parainfluenza 1 (PCR) Not detected Parainfluenza 2 (PCR) Not detected Parainfluenza 3 (PCR) Not detected Parainfluenza 4 (PCR) Not detected RSV (PCR) Not detected Entero/Rhino (PCR) Not detected Assessment & Plan Assessment & Plan narrative: 1. Acute hypoxemic respiratory failure -secondary to acute CHF exacerbation and Flu A positive -chest xray noted to have opacities, but with low procal think unlikely to be bacterial pneumonia -patient clinically volume overloaded with pulmonary edema acutely and lower extremity edema, bnp 8170 -likely in the setting of dietary nonadherence around the holidays -continue tamiflu at renal dosing -diuresed with lasix 60mg IV BID given renal insufficiency -fluid restriction and low salt diet 2. ARLENE on CKD stage 3 -suspect secondary to congestive heart failure -baseline creatinine ~1.6, on admit 2.16 -monitor creatinine daily 3. Type 2 Diabetes on insulin -continue home dose insulin -hold oral medications -ordered insulin sliding scale 4. CAD and HTN, chronic -continue plavix, statin, imdur, coreg, amlodipine 5. Hyponatremia, chronic -on admit 129, which is similar to previous admission -monitor change in sodium with plan for aggressive diuresis Given severity of respiratory symptoms and likelihood of electrolyte and renal dysfunction to worsen with diuresis suspect patient will require greater than 2 midnights CODE: Full Proxy: Kay Caal, spouse I have utilized all available resources to reconcile the patient's home medications Time Spent With Patient Critical Care time: I spent a total of [] minutes of critical care time on this patient's care today; this time is exclusive of procedural time.
[2022-01-08] MEDS: HEPARIN 5,000 UNIT/ML VIAL 5000 UNIT SUBCUT (20:57)
[2022-01-08] MEDS: INSULIN GLARGINE 100 UNIT/ML 3ML PEN 36 UNIT SUBCUT (21:21)
[2022-01-09] VITALS (14 sets, daily range): BP systolic 110–139; BP diastolic 35–56; PULSE 50–58; RESP 15–24; TEMP 35.8–37; O2SAT 92–96
--- NOTE | 2022-01-09 04:31 | PC.NURSE ---
Patient's BP at HS 108/34, HR 50. Dr Nino notified and HS Benedict held. Patient's BG was 88 at HS so no short acting insulin given, however pt received his Lantus insulin 36 units. At 0325 pt c/o feeling very light headed like his BG was low. BG 52, 8 oz juice given, recheck 70. Ice cream given, recheck 76, ice cream given (pt over FR amt) recheck 83.
[2022-01-09 06:07] LABS: Add Manual Diff / Slide Review NO; Basophils Absolute Auto 0 /uL (0-100); Basophils Percent Auto 0.7 % (0-2); Eosinophils Absolute Auto 0 /uL (0-450); Eosinophils Percent Auto 0.5 % (2-4); Hematocrit 27.9 % (41-53); Hemoglobin 8.9 g/dL (13.5-17.5); Lymphocytes Absolute Auto 700 /uL (1100-4500); Lymphocytes Percent Auto 15.1 % (25-40); Mean Corpuscular HGB Conc 31.9 % (30-36); Mean Corpuscular Hemoglobin 25.7 PG (26-34); Mean Corpuscular Volume 80.7 fL (80-100); Monocytes Absolute Auto 900 /uL (0-900); Monocytes Percent Auto 19.2 % (3-14); Neutrophils Absolute Auto 3200 /uL (1500-7000); Neutrophils Percent Auto 64.5 % (50-75); Platelet Count 145 X10^3/uL (150-400); Red Blood Cell Count 3.46 X10^6/uL (4.5-5.9); Red Cell Distribution Width 20.5 % (11.6-14.8); White Blood Cell Count 4.9 X10^3/uL (4.5-11.0)
[2022-01-09 06:16] LABS: BUN Creatinine Ratio 27.6 (6-22); Blood Urea Nitrogen 60 mg/dL (9-20); Calcium 7.7 mg/dL (8.4-10.2); Carbon Dioxide 23 mmol/L (22-32); Chloride 93 mmol/L (98-107); Estimated Glomerular Filt Rate 30 mL/min (>60); Glucose 101 mg/dL (80-110); HEMOLYSIS < 15 (0-50); Potassium 4.1 mmol/L (3.4-5.1); Sodium 128 mmol/L (137-145)
[2022-01-09 06:28] LABS: Anisocytosis 2+; Poikilocytosis 1+
[2022-01-09] MEDS: OSELTAMIVIR 30 MG CAPSULE PO ×2 (09:02→21:41)
[2022-01-09] MEDS: ISOSORBIDE MONONITRATE ER 30 MG TABLET PO (09:02)
[2022-01-09] MEDS: PRAVASTATIN 20 MG TABLET 80 MG PO (09:03)
[2022-01-09] MEDS: HEPARIN 5,000 UNIT/ML VIAL 5000 UNIT SUBCUT ×2 (09:04→21:41)
[2022-01-09] MEDS: carvediloL 12.5 MG TABLET PO ×2 (09:04→17:44)
--- NOTE | 2022-01-09 15:09 | CM.DANOTE ---
DCP Assessment Note Patient is 81 y/o male who presents to due to concern for SOB, patient was admitted due to Acute Hypoxemic respiratory failure, Acute CHF and Flu A. patient has hx of ARLENE on CKD stage 3, type 2 diabietes, CAD, HTN and Hyponatremia. Patient's PCP is Dr. Albert Sanchez, patient has Medicare and [employer] insurance. INTERMODAL OWNER OPERATOR TRUCK DRIVER enter room to meet with patient, patient presents as A/Ox3. Present in room is patient's spouse/DPOA. Spouse and RN report that spouse brought in copy of advance directive for EMR. It is reported that spouse is caregiver for most of patient's ADL needs. Patient reports he ambulates independently and toilets independently but spouse assists as needed. Patient endorses he has a FWW to use as needed. Patient endorses he drives his car. INTERMODAL OWNER OPERATOR TRUCK DRIVER discusses DCP needs upon d/c and patient and decline needs at home. Plan: Patient to d/c to home with upon medical clearance, DCP to f/u with any needs. KHRIS Henderson Discharge Planning/Care Management CM Discharge Assessment Start: 01/09/22 14:59 Freq: Status: Active Protocol: Document 01/09/22 14:59 LN (Rec: 01/09/22 15:09 LN [id number]) Discharge Planning Assessment Assigned Thread Trimmer KHRIS Bardales DPOA/Assigned Designee Name Kay Caal/ Contact Information Advance Directives? Yes Advance Directives on File Yes: provided copy today History Provided By Patient,Significant Other, Medical Record Has Patient been admitted in last 30 No days? Prior Living Arrangements House Household Members spouse Type of transporation used prior to Drives own vehicle admit Independent with ADL's No Is patient alert and oriented? Yes Needs Assistance With Bathing,Meal Prep,Managing Medications,Home Chores / Shopping Caregiver for Another No DME Already Rented / Owned FWW / Walker Discharge Plan Home Transportation Arrangement Spouse Referrals Initiated None needed Please Provide Date Initial DC 01/09/22 Assessment Was Performed
--- NOTE | 2022-01-09 15:18 | P.PN_ITS ---
Subjective Subjective Date Patient Seen: 01/09/22 Interval history: Feels improved today with improved breathing, he does desaturate with ambulation to 88% on room air. At rest he improves. Exam Vital Signs (past 8 hours): - 01/09/22 09:04 01/09/22 08:00 01/09/22 12:00 Temperature 96.9 F L 98.6 F Pulse Rate 57 L 50 L 55 L Respiratory Rate 15 22 Blood Pressure 133/47 L 138/53 L 110/52 L Pulse Oximetry 93 92 Oxygen Delivery Method Oxygen Flow Rate 2 2 01/09/22 09:30 Temperature Pulse Rate Respiratory Rate Blood Pressure Pulse Oximetry 93 Oxygen Delivery Method Nasal Cannula Oxygen Flow Rate 2 Oxygen Delivery Method Nasal Cannula Oxygen Flow Rate 2 Narrative Exam Narrative: GEN: WDWN in no acute distress, ambulatory without assistance. HEENT: moist mucous membranes, PERRL NECK: trachea midline, no JVD PULM: crackles bilaterally CV: regular rate and rhythm, no murmurs ABD: soft, nontender, nondistended, no organomegaly, normal bowel sounds EXT: 1+ edema, no joint effusions. NEURO: awake, alert, oriented, no focal deficits Objective Labs Result Diagrams: 01/09/22 05:24 01/09/22 05:24 Labs: Laboratory Results - last 24 hr 01/09/22 01/09/22 05:24 05:24 WBC 4.9 RBC 3.46 L Hgb 8.9 L Hct 27.9 L MCV 80.7 MCH 25.7 L MCHC 31.9 RDW 20.5 H Plt Count 145 L Neut % (Auto) 64.5 Lymph % (Auto) 15.1 L [place] % (Auto) 19.2 H Eos % (Auto) 0.5 L Baso % (Auto) 0.7 Neut # (Auto) 3200 Lymph # (Auto) 700 L [place] # (Auto) 900 Eos # (Auto) 0 Baso # (Auto) 0 RBC Morphology See below Poikilocytosis 1+ H Anisocytosis 2+ H Sodium 128 L Potassium 4.1 Chloride 93 L Carbon Dioxide 23 BUN 60 H Creatinine 2.17 H Estimated GFR 30 L BUN/Creatinine Ratio 27.6 H Glucose 101 Calcium 7.7 L PFSH Medical History Coronary artery disease Hyperlipidemia Hypertension Type 2 diabetes mellitus Surgical History History of coronary artery bypass graft x 3 Social History household members: spouse Smoking Status: Former smoker alcohol intake: never Assessment & Plan Assessment & Plan narrative: 1. Acute hypoxemic respiratory failure secondary to acute systolic heart failure and influenza A. -secondary to acute CHF exacerbation and Flu A positive -chest xray noted to have opacities, but with low procal think unlikely to be bacterial pneumonia -patient clinically volume overloaded with pulmonary edema acutely and lower extremity edema, bnp 8170. TTE with EF of approx 30% with wall motion abnormalities. -likely in the setting of dietary nonadherence around the holidays and influenza infection. -continue tamiflu at renal dosing -diuresed with lasix 60mg IV BID given renal insufficiency, will continue -fluid restriction and low salt diet -wean from O2 as tolerated. 2. ARLENE on CKD stage 3 -suspect secondary to congestive heart failure -baseline creatinine ~1.6, on admit 2.16 and stable today. -monitor creatinine daily 3. Type 2 Diabetes on insulin -continue home dose insulin -hold oral medications -ordered insulin sliding scale 4. CAD and HTN, chronic -continue plavix, statin, imdur, coreg, amlodipine 5. Hyponatremia, chronic -on admit 129, which is similar to previous admission -monitor change in sodium with plan for aggressive diuresis Given severity of respiratory symptoms and likelihood of electrolyte and renal dysfunction to worsen with diuresis suspect patient will require greater than 2 midnights CODE: Full Proxy: Premadino Caal, spouse I have utilized all available resources to reconcile the patient's home medications Time Spent With Patient Critical Care time: I spent a total of [] minutes of critical care time on this patient's care today; this time is exclusive of procedural time.
[2022-01-09] MEDS: INSULIN LISPRO 100 UNIT/ML 3ML VIAL SUBCUT (17:39)
[2022-01-09] MEDS: FUROSEMIDE 60 MG in SODIUM CHLORIDE 0.9% 50 ML 112 MG IV (17:48)
[2022-01-09] MEDS: CLOPIDOGREL 75 MG TABLET PO (20:12)
[2022-01-09] MEDS: INSULIN GLARGINE 100 UNIT/ML 3ML PEN 15 UNIT SUBCUT (20:23)
[2022-01-09] MEDS: DOXAZOSIN 4 MG TABLET 8 MG PO (20:24)
[2022-01-10] VITALS (11 sets, daily range): BP systolic 120–145; BP diastolic 45–65; PULSE 53–93; RESP 17–20; TEMP 36.2–36.4; O2SAT 92–98
--- NOTE | 2022-01-10 07:01 | PC.NURSE ---
Hospitalist notified with CBG. 133. Ordered to give only 15 units of Lantus. Checked blood glucose twice after administering 15 units of Lantus. It was 94 & 102. Will monitor.
[2022-01-10] MEDS: OSELTAMIVIR 30 MG CAPSULE PO ×2 (09:21→21:48)
[2022-01-10] MEDS: ISOSORBIDE MONONITRATE ER 30 MG TABLET PO (09:21)
[2022-01-10] MEDS: carvediloL 12.5 MG TABLET PO ×2 (09:21→17:39)
[2022-01-10] MEDS: HEPARIN 5,000 UNIT/ML VIAL 5000 UNIT SUBCUT ×2 (09:21→22:01)
[2022-01-10] MEDS: PRAVASTATIN 20 MG TABLET 80 MG PO (09:21)
[2022-01-10] MEDS: FUROSEMIDE 60 MG in SODIUM CHLORIDE 0.9% 50 ML 112 MG IV ×2 (09:28→17:39)
[2022-01-10] MEDS: INSULIN LISPRO 100 UNIT/ML 3ML VIAL SUBCUT (16:47)
--- NOTE | 2022-01-10 17:19 | P.PN_ITS ---
Subjective Subjective Date Patient Seen: 01/10/22 Interval history: continues to have leg edema and dyspnea on exertion, now improved to 1-2L of supplemental O2. Reports appetite is improving. Exam Vital Signs (past 8 hours): - 01/10/22 09:21 01/10/22 15:00 Temperature 97.3 F L Pulse Rate 64 93 H Respiratory Rate 18 Blood Pressure 120/64 143/50 H Pulse Oximetry 98 Oxygen Flow Rate 2 Oxygen Delivery Method Nasal Cannula Oxygen Flow Rate 2 Narrative Exam Narrative: GEN: WDWN in no acute distress, ambulatory without assistance. HEENT: moist mucous membranes, PERRL NECK: trachea midline, no JVD PULM: crackles bilaterally CV: regular rate and rhythm, no murmurs ABD: soft, nontender, nondistended, no organomegaly, normal bowel sounds EXT: 1+ edema, no joint effusions. NEURO: awake, alert, oriented, no focal deficits Objective Labs Result Diagrams: 01/09/22 05:24 01/09/22 05:24 [facility] Medical History Coronary artery disease Hyperlipidemia Hypertension Type 2 diabetes mellitus Surgical History History of coronary artery bypass graft x 3 Social History household members: spouse Smoking Status: Former smoker alcohol intake: never Assessment & Plan Assessment & Plan narrative: 1. Acute hypoxemic respiratory failure secondary to acute systolic heart failure and influenza A. -secondary to acute CHF exacerbation and Flu A positive -chest xray noted to have opacities, but with low procal think unlikely to be bacterial pneumonia -patient clinically volume overloaded with pulmonary edema acutely and lower extremity edema, bnp 8170. TTE with EF of approx 30% with wall motion abnormalities. -likely in the setting of dietary nonadherence around the holidays and influenza infection. -continue tamiflu at renal dosing -diuresis to continue with lasix 60mg IV BID given renal insufficiency -fluid restriction and low salt diet -wean from O2 as tolerated. 2. ARLENE on CKD stage 3 -suspect secondary to congestive heart failure -baseline creatinine ~1.6, on admit 2.16. -monitor creatinine 3. Type 2 Diabetes on insulin -continue home dose insulin -hold oral medications -ordered insulin sliding scale 4. CAD and HTN, chronic -continue plavix, statin, imdur, coreg, amlodipine 5. Hyponatremia, chronic -on admit 129, which is similar to previous admission -monitor change in sodium with plan for aggressive diuresis Dispo : plan for discharge home timing possibly in a couple more days. CODE: Full Proxy: Premadino Caal, spouse I have utilized all available resources to reconcile the patient's home medications Time Spent With Patient Critical Care time: I spent a total of [] minutes of critical care time on this patient's care today; this time is exclusive of procedural time.
[2022-01-10] MEDS: DOXAZOSIN 4 MG TABLET 8 MG PO (20:16)
[2022-01-10] MEDS: CLOPIDOGREL 75 MG TABLET PO (20:16)
[2022-01-10] MEDS: INSULIN GLARGINE 100 UNIT/ML 3ML PEN 15 UNIT SUBCUT (21:40)
[2022-01-11] VITALS (10 sets, daily range): BP systolic 106–150; BP diastolic 48–74; PULSE 50–95; RESP 14–20; TEMP 36.2–36.8; O2SAT 91–95
[2022-01-11] MEDS: OSELTAMIVIR 30 MG CAPSULE PO ×2 (08:12→20:58)
[2022-01-11] MEDS: HEPARIN 5,000 UNIT/ML VIAL 5000 UNIT SUBCUT ×2 (08:13→21:00)
[2022-01-11] MEDS: ISOSORBIDE MONONITRATE ER 30 MG TABLET PO (08:13)
[2022-01-11] MEDS: carvediloL 12.5 MG TABLET PO ×2 (08:14→17:19)
--- NOTE | 2022-01-11 08:15 | PC.NURSE ---
Clarified with Dr. Flannery last evening if it's okay to give Plavix 75 mg.& Heparin 5,000 units SQ @ HS. states it's okay. Reported to day CHARLES.
[2022-01-11 08:27] LABS: Add Manual Diff / Slide Review NO; Basophils Absolute Auto 0 /uL (0-100); Basophils Percent Auto 0.6 % (0-2); Eosinophils Absolute Auto 0 /uL (0-450); Eosinophils Percent Auto 0.6 % (2-4); Hematocrit 28.8 % (41-53); Hemoglobin 9.2 g/dL (13.5-17.5); Lymphocytes Absolute Auto 900 /uL (1100-4500); Lymphocytes Percent Auto 13.9 % (25-40); Mean Corpuscular Hemoglobin 25.7 PG (26-34); Mean Corpuscular Volume 80.2 fL (80-100); Monocytes Absolute Auto 1100 /uL (0-900); Monocytes Percent Auto 16.8 % (3-14); Neutrophils Absolute Auto 4300 /uL (1500-7000); Neutrophils Percent Auto 68.1 % (50-75); Platelet Count 175 X10^3/uL (150-400); Red Blood Cell Count 3.59 X10^6/uL (4.5-5.9); Red Cell Distribution Width 20.2 % (11.6-14.8); White Blood Cell Count 6.3 X10^3/uL (4.5-11.0)
[2022-01-11 08:28] LABS: Blood Urea Nitrogen 56 mg/dL (9-20); Calcium 8.1 mg/dL (8.4-10.2); Carbon Dioxide 26 mmol/L (22-32); Chloride 95 mmol/L (98-107); Estimated Glomerular Filt Rate 33 mL/min (>60); Glucose 123 mg/dL (80-110); HEMOLYSIS < 15 (0-50); Potassium 3.7 mmol/L (3.4-5.1); Sodium 135 mmol/L (137-145)
[2022-01-11] MEDS: PRAVASTATIN 20 MG TABLET 80 MG PO (08:32)
[2022-01-11] MEDS: FUROSEMIDE 60 MG in SODIUM CHLORIDE 0.9% 50 ML 112 MG IV ×2 (08:33→17:19)
[2022-01-11 09:11] LABS: Anisocytosis 2+
[2022-01-11 09:12] LABS: Poikilocytosis 1+
[2022-01-11] MEDS: INSULIN LISPRO 100 UNIT/ML 3ML VIAL SUBCUT ×2 (12:34→17:18)
--- NOTE | 2022-01-11 13:16 | PM.PN.1 ---
Subjective Subjective Date Patient Seen: 01/11/22 Interval history: continues to have leg edema and dyspnea on exertion, but both improving. Desaturated to 88% on room air with ambulation today, close to resolution of hypoxia. Exam Vital Signs (past 8 hours): - 01/11/22 06:00 01/11/22 08:14 01/11/22 08:49 Temperature 97.9 F Pulse Rate 52 L 52 L Respiratory Rate 14 Blood Pressure 142/52 H 134/48 L Pulse Oximetry 91 95 Oxygen Delivery Method Nasal Cannula Oxygen Flow Rate 0 1 01/11/22 08:00 01/11/22 07:00 01/11/22 07:00 Temperature 97.1 F L Pulse Rate 54 L Respiratory Rate 18 Blood Pressure 134/48 L Pulse Oximetry 95 94 Oxygen Delivery Method Nasal Cannula Nasal Cannula Oxygen Flow Rate 1.5 Oxygen Delivery Method Nasal Cannula Oxygen Flow Rate 1 Narrative Exam Narrative: GEN: WDWN in no acute distress, ambulatory without assistance. HEENT: moist mucous membranes, PERRL NECK: trachea midline, no JVD PULM: crackles bilaterally CV: regular rate and rhythm, no murmurs ABD: soft, nontender, nondistended, no organomegaly, normal bowel sounds EXT: trace to 1+ edema, no joint effusions. NEURO: awake, alert, oriented, no focal deficits Objective Labs Result Diagrams: 01/11/22 08:00 01/11/22 08:00 Labs: Laboratory Results - last 24 hr 01/11/22 01/11/22 08:00 08:00 WBC 6.3 RBC 3.59 L Hgb 9.2 L Hct 28.8 L MCV 80.2 MCH 25.7 L MCHC 32.0 RDW 20.2 H Plt Count 175 Neut % (Auto) 68.1 Lymph % (Auto) 13.9 L [place] % (Auto) 16.8 H Eos % (Auto) 0.6 L Baso % (Auto) 0.6 Neut # (Auto) 4300 Lymph # (Auto) 900 L [place] # (Auto) 1100 H Eos # (Auto) 0 Baso # (Auto) 0 RBC Morphology See below Poikilocytosis 1+ H Anisocytosis 2+ H Sodium 135 L Potassium 3.7 Chloride 95 L Carbon Dioxide 26 BUN 56 H Creatinine 2.00 H Estimated GFR 33 L BUN/Creatinine Ratio 28.0 H Glucose 123 H Calcium 8.1 L Magnesium 2.0 PFSH Medical History Coronary artery disease Hyperlipidemia Hypertension Type 2 diabetes mellitus Surgical History History of coronary artery bypass graft x 3 Social History household members: spouse Smoking Status: Former smoker alcohol intake: never Assessment & Plan Assessment & Plan narrative: 1. Acute hypoxemic respiratory failure secondary to acute systolic heart failure and influenza A. -secondary to acute CHF exacerbation and Flu A positive -chest xray noted to have opacities, but with low procal think unlikely to be bacterial pneumonia -patient clinically volume overloaded with pulmonary edema acutely and lower extremity edema, bnp 8170. TTE with EF of approx 30% with wall motion abnormalities. -likely in the setting of dietary nonadherence around the holidays and influenza infection. -continue tamiflu at renal dosing -diuresis to continue with lasix 60mg IV BID given renal insufficiency -fluid restriction and low salt diet -wean from O2 as tolerated. 2. ARLENE on CKD stage 3 -suspect secondary to congestive heart failure -baseline creatinine ~1.6, on admit 2.16 improved slightly to 2.0 today -monitor creatinine 3. Type 2 Diabetes on insulin -continue home dose insulin -hold oral medications -ordered insulin sliding scale 4. CAD and HTN, chronic -continue plavix, statin, imdur, coreg, amlodipine 5. Hyponatremia, chronic -on admit 129, which is similar to previous admission -monitor change in sodium with plan for aggressive diuresis Dispo : plan for discharge home timing in 1-2 days if resolution of hypoxia. CODE: Full Proxy: Kay Caal, spouse I have utilized all available resources to reconcile the patient's home medications Time Spent With Patient Critical Care time: I spent a total of [] minutes of critical care time on this patient's care today; this time is exclusive of procedural time.
[2022-01-11] MEDS: guaiFENesin Solution 100 MG/5 ML UDC PO (17:17)
[2022-01-11] MEDS: CLOPIDOGREL 75 MG TABLET PO (20:57)
[2022-01-11] MEDS: DOXAZOSIN 4 MG TABLET 8 MG PO (20:58)
[2022-01-11] MEDS: INSULIN GLARGINE 100 UNIT/ML 3ML PEN 15 UNIT SUBCUT (21:00)
[2022-01-12] VITALS (10 sets, daily range): BP systolic 112–132; BP diastolic 38–83; PULSE 52–69; RESP 14–24; TEMP 36.1–36.4; O2SAT 92–96
[2022-01-12] MEDS: carvediloL 12.5 MG TABLET PO ×2 (08:52→18:19)
[2022-01-12] MEDS: FUROSEMIDE 60 MG in SODIUM CHLORIDE 0.9% 50 ML 112 MG IV (08:52)
[2022-01-12] MEDS: PRAVASTATIN 20 MG TABLET 80 MG PO (08:56)
[2022-01-12] MEDS: HEPARIN 5,000 UNIT/ML VIAL 5000 UNIT SUBCUT ×2 (08:56→22:05)
[2022-01-12] MEDS: OSELTAMIVIR 30 MG CAPSULE PO ×2 (09:03→22:10)
[2022-01-12] MEDS: ISOSORBIDE MONONITRATE ER 30 MG TABLET PO (09:03)
--- NOTE | 2022-01-12 09:19 | P.PN_ITS ---
Subjective Subjective Date Patient Seen: 01/12/22 Interval history: Patient's breathing improving, but still cannot lie on back without dyspnea. Lying on side is more comfortable. at bedside and questions were answered. Exam Vital Signs (past 8 hours): - 01/12/22 06:00 01/12/22 08:52 Temperature 97.4 F L Pulse Rate 56 L 56 L Respiratory Rate 14 Blood Pressure 130/66 130/66 Pulse Oximetry 93 Oxygen Flow Rate 0 Oxygen Delivery Method Nasal Cannula Oxygen Flow Rate 0 Narrative Exam Narrative: GEN: WDWN in no acute distress, ambulatory without assistance. HEENT: moist mucous membranes, PERRL NECK: trachea midline, no JVD PULM: crackles bilaterally CV: regular rate and rhythm, no murmurs ABD: soft, nontender, nondistended, no organomegaly, normal bowel sounds EXT: trace to 1+ edema, no joint effusions. NEURO: awake, alert, oriented, no focal deficits Objective Labs Result Diagrams: 01/12/22 11:58 01/12/22 11:58 [facility] Medical History Coronary artery disease Hyperlipidemia Hypertension Type 2 diabetes mellitus Surgical History History of coronary artery bypass graft x 3 Social History household members: spouse Smoking Status: Former smoker alcohol intake: never Assessment & Plan Assessment & Plan narrative: 1. Acute hypoxemic respiratory failure secondary to acute systolic heart failure and influenza A, improving -secondary to acute CHF exacerbation and Flu A positive -chest xray noted to have opacities, but with low procal think unlikely to be bacterial pneumonia -patient clinically volume overloaded with pulmonary edema acutely and lower extremity edema, bnp 8170. TTE with EF of approx 30% with wall motion abnormalities. -likely in the setting of dietary nonadherence around the holidays and influenza infection. -continue tamiflu at renal dosing x5 days -diuresis to continue with lasix 60mg IV BID given renal insufficiency -add diamox for increased diuretic effect -can stop fluid restriction due to improved sodium -now on room air 2. ARLENE on CKD stage 3 -suspect secondary to congestive heart failure -baseline creatinine ~1.6, on admit 2.16 now downtrending -monitor creatinine 3. Type 2 Diabetes on insulin -continue home dose insulin -hold oral medications -ordered insulin sliding scale 4. CAD and HTN, chronic -continue plavix, statin, imdur, coreg, amlodipine 5. Hyponatremia, chronic -on admit 129, which is similar to previous admission -monitor change in sodium with plan for aggressive diuresis Dispo : Hopefully home on 01/13. CODE: Full Proxy: Kay Caal, spouse I have utilized all available resources to reconcile the patient's home medications Time Spent With Patient Critical Care time: I spent a total of [] minutes of critical care time on this patient's care today; this time is exclusive of procedural time.
[2022-01-12] MEDS: acetaZOLAMIDE 250 MG TABLET 500 MG PO (11:13)
[2022-01-12] MEDS: INSULIN LISPRO 100 UNIT/ML 3ML VIAL SUBCUT ×2 (12:19→17:37)
[2022-01-12 12:43] LABS: Add Manual Diff / Slide Review NO; Basophils Absolute Auto 0 /uL (0-100); Basophils Percent Auto 0.5 % (0-2); Eosinophils Absolute Auto 100 /uL (0-450); Eosinophils Percent Auto 1.2 % (2-4); Hematocrit 29.2 % (41-53); Hemoglobin 9.4 g/dL (13.5-17.5); Lymphocytes Absolute Auto 1000 /uL (1100-4500); Lymphocytes Percent Auto 12.7 % (25-40); Mean Corpuscular HGB Conc 32.3 % (30-36); Mean Corpuscular Hemoglobin 25.8 PG (26-34); Mean Corpuscular Volume 79.9 fL (80-100); Monocytes Absolute Auto 1200 /uL (0-900); Monocytes Percent Auto 15.4 % (3-14); Neutrophils Absolute Auto 5400 /uL (1500-7000); Neutrophils Percent Auto 70.2 % (50-75); Platelet Count 179 X10^3/uL (150-400); Red Blood Cell Count 3.65 X10^6/uL (4.5-5.9); White Blood Cell Count 7.7 X10^3/uL (4.5-11.0)
[2022-01-12 13:01] LABS: BUN Creatinine Ratio 26.5 (6-22); Blood Urea Nitrogen 50 mg/dL (9-20); Calcium 8.4 mg/dL (8.4-10.2); Carbon Dioxide 31 mmol/L (22-32); Chloride 95 mmol/L (98-107); Estimated Glomerular Filt Rate 35 mL/min (>60); Glucose 164 mg/dL (80-110); HEMOLYSIS < 15 (0-50); Potassium 4.1 mmol/L (3.4-5.1); Sodium 137 mmol/L (137-145)
[2022-01-12] MEDS: CLOPIDOGREL 75 MG TABLET PO (21:45)
[2022-01-12] MEDS: DOXAZOSIN 4 MG TABLET 8 MG PO (22:05)
[2022-01-12] MEDS: INSULIN GLARGINE 100 UNIT/ML 3ML PEN 15 UNIT SUBCUT (22:13)
[2022-01-13 06:00] VITALS: BP 131/46; PULSE 58; RESP 19; TEMP 36.3; O2SAT 95
[2022-01-13 07:00] VITALS: O2SAT 95
[2022-01-13 08:09] LABS: Add Manual Diff / Slide Review NO; Basophils Absolute Auto 100 /uL (0-100); Basophils Percent Auto 0.9 % (0-2); Eosinophils Absolute Auto 200 /uL (0-450); Eosinophils Percent Auto 2.7 % (2-4); Hematocrit 29.2 % (41-53); Hemoglobin 9.4 g/dL (13.5-17.5); Lymphocytes Absolute Auto 1000 /uL (1100-4500); Lymphocytes Percent Auto 14.7 % (25-40); Mean Corpuscular HGB Conc 32.1 % (30-36); Mean Corpuscular Hemoglobin 25.8 PG (26-34); Mean Corpuscular Volume 80.3 fL (80-100); Monocytes Absolute Auto 1100 /uL (0-900); Monocytes Percent Auto 15.8 % (3-14); Neutrophils Absolute Auto 4600 /uL (1500-7000); Neutrophils Percent Auto 65.9 % (50-75); Platelet Count 178 X10^3/uL (150-400); Red Blood Cell Count 3.64 X10^6/uL (4.5-5.9)
[2022-01-13 08:45] VITALS: BP 124/42; PULSE 60
[2022-01-13] MEDS: INSULIN LISPRO 100 UNIT/ML 3ML VIAL SUBCUT (08:47)
[2022-01-13 09:56] VITALS: BP 115/80; PULSE 54; RESP 15; TEMP 36.2; O2SAT 100
[2022-01-13] MEDS: HEPARIN 5,000 UNIT/ML VIAL 5000 UNIT SUBCUT (11:02)
[2022-01-13] MEDS: PRAVASTATIN 20 MG TABLET 80 MG PO (11:02)
[2022-01-13] MEDS: acetaZOLAMIDE 250 MG TABLET 500 MG PO (11:02)
--- NOTE | 2022-01-13 11:42 | P.DS_ITS ---
History of Present Illness History of Present Illness Date Patient Seen: 01/13/22 Time Patient Seen: 11:42 Chief complaint: SOB,congestion & cough Narrative: Mr. Caal is an 81M with PMH DM, CAD s/p CABG, CHF who presents to the hospital with shortness of breath. He states he had a big Thanksgiving meal, after this he developed shortness of breath and weight gain. He weighs himself daily. He usually takes 20mg daily, he called his physician who recommended 40mg daily, and he noted no improvement, so then upped it to 80mg daily. He notes his is sick with the flu. He noted no improvement of shortness of breath with the increased lasix. He has no chest pain, no fevers. In the ED workup was done, vitals notable for afebrile, tachypneic in the 20s, satting 85% on room air. He was placed on oxygen. Labs notable for wbc 5.3, hgb 9.0, plts 160. Na 129, BUN 56, creatinine 2.16. BNP 8170. Procal 0.16. Lactate 1.0. Flu A positive. Chest xray read as bibasilar pulmonary consolidation and right pleural effusion suggesting multifocal pneumonia and cardiomegaly and interstitial prominence suggesting fluid overload. He was ordered for tamiflu and lasix and admitted for further treatment. Family history: he denies any CAD or pulmonary diseaes in family history Discharge Providers Provider Date of admission: 01/08/22 11:08 Discharge Date: 01/13/22 Primary care physician: Albert Sanchez DO Discharge provider: Mati Harley DO Summary Hospital Course Discharge Diagnosis: 1. Acute hypoxemic respiratory failure secondary to acute systolic heart failure and influenza A, improving -secondary to acute CHF exacerbation and Flu A positive -chest xray noted to have opacities, but with low procal think unlikely to be bacterial pneumonia -patient clinically volume overloaded with pulmonary edema acutely and lower extremity edema, bnp 8170. TTE with EF of approx 30% with wall motion abnormalities. -likely in the setting of dietary nonadherence around the holidays and influenza infection. -continue tamiflu at renal dosing x5 days -diuresis to continue with lasix 60mg IV BID given renal insufficiency -add diamox for increased diuretic effect -can stop fluid restriction due to improved sodium -now on room air 2. ARLENE on CKD stage 3 -suspect secondary to congestive heart failure -baseline creatinine ~1.6, on admit 2.16 now downtrending -monitor creatinine 3. Type 2 Diabetes on insulin -continue home dose insulin -hold oral medications -ordered insulin sliding scale 4. CAD and HTN, chronic -continue plavix, statin, imdur, coreg, amlodipine 5. Hyponatremia, chronic -on admit 129, which is similar to previous admission -monitor change in sodium with plan for aggressive diuresis Hospital Course: Admitted for flu and shortness of breath with concern for CHF exacerbation. Initially required 2L O2. Given lasix with good diuresis of net 4.5L and improvement in breathing and able to come off O2. Repeat echo showed findings as above, unclear if changed as no prior to compare. Patient will f/u with PCP and patient service specialist to review this. His home cardiac medications were not adjusted and continued. Time Spent with Patient Time spent: Greater than 30 minutes Exam Vital Signs (past 8 hours): - 01/13/22 06:00 01/13/22 08:45 01/13/22 09:56 Temperature 97.3 F L 97.1 F L Pulse Rate 58 L 60 54 L Respiratory Rate 19 15 Blood Pressure 131/46 L 124/42 L 115/80 Pulse Oximetry 95 100 Oxygen Delivery Method Oxygen Flow Rate 1 2 01/13/22 07:00 01/13/22 07:18 Temperature Pulse Rate Respiratory Rate Blood Pressure Pulse Oximetry 95 Oxygen Delivery Method Nasal Cannula Nasal Cannula Oxygen Flow Rate 1 Oxygen Delivery Method Nasal Cannula Oxygen Flow Rate 2 Narrative Exam Narrative: GEN: WDWN in no acute distress, ambulatory without assistance. HEENT: moist mucous membranes, PERRL NECK: trachea midline, no JVD PULM: crackles bilaterally CV: regular rate and rhythm, no murmurs ABD: soft, nontender, nondistended, no organomegaly, normal bowel sounds EXT: trace to 1+ edema, no joint effusions. NEURO: awake, alert, oriented, no focal deficits Objective Labs Result Diagrams: 01/13/22 07:06 01/12/22 11:58 Labs: Laboratory Results - last 24 hr 01/12/22 01/12/22 01/13/22 11:58 11:58 07:06 WBC 7.7 7.0 RBC 3.65 L 3.64 L Hgb 9.4 L 9.4 L Hct 29.2 L 29.2 L MCV 79.9 L 80.3 MCH 25.8 L 25.8 L MCHC 32.3 32.1 RDW 20.0 H 20.0 H Plt Count 179 178 Neut % (Auto) 70.2 65.9 Lymph % (Auto) 12.7 L 14.7 L [place] % (Auto) 15.4 H 15.8 H Eos % (Auto) 1.2 L 2.7 Baso % (Auto) 0.5 0.9 Neut # (Auto) 5400 4600 Lymph # (Auto) 1000 L 1000 L [place] # (Auto) 1200 H 1100 H Eos # (Auto) 100 200 Baso # (Auto) 0 100 Sodium 137 Potassium 4.1 Chloride 95 L Carbon Dioxide 31 BUN 50 H Creatinine 1.89 H Estimated GFR 35 L BUN/Creatinine Ratio 26.5 H Glucose 164 H Calcium 8.4 Magnesium 2.0 PFSH Medical History Coronary artery disease Hyperlipidemia Hypertension Type 2 diabetes mellitus Surgical History History of coronary artery bypass graft x 3 Social History household members: spouse Smoking Status: Former smoker alcohol intake: never Discharge Plan Discharge Plan Patient Disposition: Home Provider Discharge Comment: You were admitted with the flu and heart failure exacerbation. We gave you lots of lasix to pee of extra fluid which helped your breathing significantly. Discharge orders & Medications Prescriptions: Continued amlodipine [Norvasc] 10 mg tablet 10 tab PO 1XD Label Comments: TAKE ONE TABLET BY MOUTH ONE TIME DAILY metformin 500 mg tablet 500 tab PO 1XD Label Comments: TAKE 1 TABLET BY MOUTH EVERY morning AND 2 TABLETS EVERY evening carvedilol [Coreg] 12.5 mg tablet 12.5 tab PO 2XD Label Comments: TAKE ONE TABLET BY MOUTH TWICE DAILY isosorbide mononitrate 30 mg tablet extended release 24 hr 30 tab PO 1XD Label Comments: TAKE ONE TABLET BY MOUTH ONE TIME DAILY clopidogrel [Plavix] 75 mg tablet 75 tab PO 1XD Label Comments: TAKE ONE TABLET BY MOUTH ONE TIME DAILY doxazosin [Cardura] 8 mg tablet 8 tab PO 1XD Label Comments: TAKE ONE TABLET BY MOUTH ONE TIME DAILY pravastatin 80 mg tablet 80 tab PO 1XD furosemide [Lasix] 20 mg tablet 40 tab PO BID Label Comments: TAKE ONE TABLET BY MOUTH ONE TIME DAILY losartan 100 mg tablet 100 tab PO 1XD Label Comments: TAKE ONE TABLET BY MOUTH ONE TIME DAILY insulin glargine [Lantus Solostar U-100 Insulin] 100 unit/mL (3 mL) insulin pen 36 ea SUBCUT 1XD Label Comments: INJECT 30 UNITS UNDER THE SKIN ONCE DAILY pantoprazole 40 mg tablet,delayed release (DR/EC) 40 mg PO BID Qty: 60 0RF metformin 500 mg Tablet 1,000 mg PO QPM fluticasone propionate 50 mcg/actuation spray,suspension 1 spray INTRANASAL DAILY Label Comments: INSTILL 2 SPRAYS IN BOTH NOSTRILS DAILY Arnuity Ellipta 200 mcg/actuation blister with device 200 mcg INHALATION DAILY Label Comments: INHALE ONE PUFF BY MOUTH ONE TIME DAILY. Rinse mouth with water after use to reduce aftertaste and incidence of candidiasis. Do not swallow. Follow up/Referrals: Albert Sanchez DO [Primary Care Provider] - 2 Weeks Discharge Data Primary Care Provider: Albert Sanchez
[2022-01-13 12:01] LABS: HEMOLYSIS < 15 (0-50); Potassium 3.8 mmol/L (3.4-5.1)
[2022-01-13 12:02] LABS: BUN Creatinine Ratio 23.4 (6-22); Blood Urea Nitrogen 43 mg/dL (9-20); Calcium 8.2 mg/dL (8.4-10.2); Carbon Dioxide 28 mmol/L (22-32); Chloride 95 mmol/L (98-107); Estimated Glomerular Filt Rate 36 mL/min (>60); Glucose 170 mg/dL (80-110); Magnesium 2.1 mg/dL (1.6-2.3); Sodium 133 mmol/L (137-145)
--- NOTE | 2022-01-13 12:58 | CM.DPC ---
DCP Discharge Home Per MD, pt is now on room air and has ambulated and medically stable to d/c home today with outpt f/u with Cardiology. No identified barriers to discharge. Pt declined HH and does not feel he has any d/c needs at this time. Plan: Patient to d/c home today via spouse POV and outpt f/u and no further SW needs at this time. OBED Hirsch
[2022-01-13 13:17] VITALS: BP 121/54; PULSE 58; RESP 17; TEMP 36.1; O2SAT 94
== END 2022-01-13 13:26 | disposition home or self-care (01) | DRG 193 ==
LOC: ED 11:08 → AC 11:11
PROVIDERS: Internal Medicine; Admitting Provider Internal Medicine; Emergency Provider Emergency Medicine; PCP Family Medicine; Referring Provider Emergency Medicine; Visit Provider Internal Medicine
DX: J10.1 Influenza due to other identified influenza virus with other respiratory manifestations (principal); I50.21 Acute systolic (congestive) heart failure; J96.01 Acute respiratory failure with hypoxia; I13.0 Hypertensive heart and chronic kidney disease with heart failure and stage 1 through stage 4 chronic kidney disease, or unspecified chronic kidney disease; N17.9 Acute kidney failure, unspecified; E87.1 Hypo-osmolality and hyponatremia; N18.30 Chronic kidney disease, stage 3 unspecified; I25.10 Atherosclerotic heart disease of native coronary artery without angina pectoris; E78.5 Hyperlipidemia, unspecified; E11.22 Type 2 diabetes mellitus with diabetic chronic kidney disease; Z95.1 Presence of aortocoronary bypass graft; Z87.891 Personal history of nicotine dependence; Z79.4 Long term (current) use of insulin; Z79.84 Long term (current) use of oral hypoglycemic drugs
CPT/HCPCS: 36415; 71045; 80048; 80053; 82550; 82962; 83605; 83690; 83735; 83880; 84145; 84484; 85025; 85610; 85730; 87633; 93306; 94760; 96365; 99284; 99285; J1644; J1815; J1940

== ENCOUNTER 2022-10-21 09:42 | Emergency (ER) | payer MEDICARE, SELFPAY ==
[2022-01-08 12:06] VITALS: BMI 32.5
[2022-10-21] VITALS (14 sets, daily range): BP systolic 119–156; BP diastolic 55–76; PULSE 51–58; RESP 13–24; TEMP 36.4; O2SAT 91–94; BMI 33.0
--- NOTE | 2022-10-21 09:59 | DI.RAD.S_ITS ---
PROCEDURE: XR CHEST 1V INDICATIONS: Shortness of breath TECHNIQUE: One view of the chest was acquired. COMPARISON: [facility], CR, XR CHEST 1V, 01/08/2022, 9:24. [facility], CR, XR CHEST 1V, 11/19/2021, 19:48. FINDINGS: Surgical changes and devices: Sternotomy wires. Lungs and pleura: Dsvz-qm-[id number] diffuse lung disease with nodular opacities. Small effusions Mediastinum: Cardiomegaly. Bones and chest wall: No suspicious bony lesions. Overlying soft tissues appear unremarkable. IMPRESSION: Low lung volumes limiting evaluation. Jdzr-uk-smjrdadh diffuse lung disease, with bilateral nodular opacities. Consider CT chest surveillance. Small effusions. Dictated by: Luke Waller M.D. on 10/21/2022 at 11:07 Approved by: Luke Waller M.D. on 10/21/2022 at 11:08
[2022-10-21 10:34] LABS: Add Manual Diff / Slide Review NO; Basophils Absolute Auto 100 /uL (0-100); Basophils Percent Auto 0.8 % (0-2); Eosinophils Absolute Auto 200 /uL (0-450); Eosinophils Percent Auto 1.7 % (2-4); Hematocrit 24.7 % (41-53); Hemoglobin 8.2 g/dL (13.5-17.5); Lymphocytes Absolute Auto 800 /uL (1100-4500); Lymphocytes Percent Auto 8.6 % (25-40); Mean Corpuscular HGB Conc 33.1 % (30-36); Mean Corpuscular Hemoglobin 28.2 PG (26-34); Mean Corpuscular Volume 85.1 fL (80-100); Monocytes Absolute Auto 1400 /uL (0-900); Neutrophils Absolute Auto 7300 /uL (1500-7000); Neutrophils Percent Auto 74.9 % (50-75); Platelet Count 217 X10^3/uL (150-400); Red Blood Cell Count 2.91 X10^6/uL (4.5-5.9); Red Cell Distribution Width 17.6 % (11.6-14.8); White Blood Cell Count 9.7 X10^3/uL (4.5-11.0)
[2022-10-21 10:40] LABS: INR 1.3 (0.9-1.3)
[2022-10-21 10:45] LABS: Alanine Aminotransferase 21 IU/L (<50); Albumin 3.6 g/dL (3.5-5.0); Albumin Globulin Ratio 1.2 (1.0-2.8); Alkaline Phosphatase 130 U/L (38-126); Aspartate Aminotransferase 29 IU/L (17-59); BUN Creatinine Ratio 21.5 (6-22); Bilirubin Total 0.5 mg/dL (0.2-1.3); Blood Urea Nitrogen 45 mg/dL (9-20); Calcium 8.1 mg/dL (8.4-10.2); Carbon Dioxide 23 mmol/L (22-32); Chloride 99 mmol/L (98-107); Estimated Glomerular Filt Rate 31 mL/min (>60); Glucose 135 mg/dL (80-110); HEMOLYSIS < 15 (0-50); Potassium 5.2 mmol/L (3.4-5.1); Sodium 133 mmol/L (137-145); Total Protein 6.6 g/dL (6.3-8.2)
[2022-10-21 10:47] LABS: Lactate (Lactic Acid) 1.5 mmol/L (0.7-2.1)
[2022-10-21 10:57] LABS: NT-proBNP (BNP-Adult 18+) 9590 pg/mL (<450); Troponin I 0.021 ng/mL (0.01-0.034)
--- NOTE | 2022-10-21 11:16 | ED.SOB ---
HPI - SOB/Dyspnea General Chief Complaint: Shortness of Breath/Dyspnea Stated Complaint: retaining water, sob, dizziness Time Seen by Provider: 10/21/22 11:16 Source: patient Mode of arrival: Wheelchair Limitations: no limitations History of Present Illness HPI Narrative: Patient is a 82-year-old male history of insulin-dependent diabetes, coronary artery disease with CABG in 2002, congestive heart failure with an EF of 30-35% on Lasix. He is followed by cardiology in [place]. He presents today with increasing shortness of breath. Reports that his legs are quite swollen more swollen than normal. He endorses orthopnea and exertional dyspnea but no actual pain. He denies any fever chills or cough. reports that he is normally on 20 mg once a day however they are instructed by Cardiology to increase if he is having weight gain. She says yesterday he was given 40 mg in the morning and 40 mg in the afternoon today he was still short of breath so he was brought to the ED. She also reports that he was seen by pulmonology 1-2 weeks ago he was treated with amoxicillin and azithromycin from assuming presumed pneumonia. He did not really have any improvement. Related Data Home Medications Medication Instructions Recorded Confirmed amlodipine 10 mg tablet (Norvasc) 10 tab PO 1XD 07/28/21 01/08/22 carvedilol 12.5 mg tablet (Coreg) 12.5 tab PO 2XD 07/28/21 01/08/22 clopidogrel 75 mg tablet (Plavix) 75 tab PO 1XD 07/28/21 01/08/22 doxazosin 8 mg tablet (Cardura) 8 tab PO 1XD 07/28/21 01/08/22 furosemide 20 mg tablet (Lasix) 40 tab PO BID 07/28/21 01/08/22 insulin glargine 100 unit/mL (3 36 ea SUBCUT 1XD 07/28/21 01/08/22 mL) subcutaneous pen (Lantus Solostar U-100 Insulin) isosorbide mononitrate 30 mg 30 tab PO 1XD 07/28/21 01/08/22 tablet,extended release 24 hr losartan 100 mg tablet 100 tab PO 1XD 07/28/21 01/08/22 metformin 500 mg tablet 500 tab PO 1XD 07/28/21 01/08/22 pravastatin 80 mg tablet 80 tab PO 1XD 07/28/21 01/08/22 metformin 500 mg tablet 1,000 mg PO QPM 08/01/21 01/08/22 fluticasone furoate 200 200 mcg inhalation DAILY 01/08/22 01/08/22 mcg/actuation blister powder for inhalation (Arnuity Ellipta) fluticasone propionate 50 1 spray intranasal DAILY 01/08/22 01/08/22 mcg/actuation nasal spray,suspension Previous Rx's Medication Instructions Recorded pantoprazole 40 mg tablet,delayed 40 mg PO BID #60 tabs 08/01/21 release Allergies Allergy/AdvReac Type Severity Reaction Status Date / Time No Known Drug Allergies Allergy Verified 10/21/22 09:59 Review of Systems Review of Systems ROS Unobtainable: All systems reviewed & are unremarkable except as noted in HPI and below Patient History Medical History Coronary artery disease Hyperlipidemia Hypertension Type 2 diabetes mellitus Surgical History History of coronary artery bypass graft x 3 Social History household members: spouse Smoking Status: Former smoker alcohol intake: never Smoking Status: Former smoker alcohol intake frequency: 0-2 drinks per day Substance Use Type: does not use Exam Initial Vital Signs Initial Vital Signs: Vital Signs Temperature 97.5 F L 10/21/22 09:54 Pulse Rate 58 L 10/21/22 09:54 Respiratory Rate 24 10/21/22 09:54 Blood Pressure 121/55 L 10/21/22 09:54 Pulse Oximetry 94 10/21/22 09:54 Oxygen Delivery Method Room Air 10/21/22 09:54 GENERAL: Alert 82-year-old male HEENT: Head atraumatic,EOMI, pupils reactive, face symmetric, moist mucous membranes CARDIOVASCULAR: Regular rate and rhythm without murmurs, rubs or gallops. RESPIRATORY: Slightly coarse bilaterally ABDOMEN: Soft, nontender. Normoactive bowel sounds all 4 quadrants. No guarding or rebound. EXTREMITIES: Normal range of motion, no clubbing. +2 pitting edema Neurovascularly intact NEUROLOGICAL: Alert and oriented x4.Normal gait and speech SKIN: Warm, dry, no laceration, no petechiae, no rashes or lesions. Course Orders Ordered: ED Orders 10/21/22 12:18 Trop I [Troponin I] Stat Discontinued Medications Furosemide 80 mg/ Sodium (Chloride) 58 mls @ 116 mls/hr IV NOW ONE Stop: 10/21/22 11:18 Last Infusion: 10/21/22 13:29 Dose: 0 mls/hr Documented By: Admin: 10/21/22 12:06 Dose: 116 mls/hr Documented By: GREY Vital Signs Vital signs: Vital Signs - 8 hr 10/21/22 12:00 10/21/22 12:01 10/21/22 12:01 Pulse Rate 53 L 51 L Respiratory Rate 19 19 Blood Pressure 146/67 H Pulse Oximetry 93 92 10/21/22 12:30 10/21/22 12:31 10/21/22 12:31 Pulse Rate 56 L 56 L Respiratory Rate 19 19 Blood Pressure 133/60 Pulse Oximetry 91 91 10/21/22 13:00 10/21/22 13:00 10/21/22 13:30 Pulse Rate 54 L 53 L Respiratory Rate 23 15 Blood Pressure 156/76 H Pulse Oximetry 91 93 10/21/22 13:31 10/21/22 13:31 Pulse Rate 53 L Respiratory Rate 21 Blood Pressure 151/67 H Pulse Oximetry 91 MDM - SOB/Dyspnea Lab Data 10/21/22 10:15 10/21/22 10:15 Labs: Lab Results 10/21/22 10/21/22 10/21/22 Range/Units 10:15 10:15 10:15 WBC 9.7 (4.5-11.0) X10^3/uL RBC 2.91 L (4.5-5.9) X10^6/uL Hgb 8.2 L (13.5-17.5) g/dL Hct 24.7 L (41-53) % MCV 85.1 (80-100) fL MCH 28.2 (26-34) PG MCHC 33.1 (30-36) % RDW 17.6 H (11.6-14.8) % Plt Count 217 (150-400) X10^3/uL Neut % (Auto) 74.9 (50-75) % Lymph % (Auto) 8.6 L (25-40) % [place] % (Auto) 14.0 (3-14) % Eos % (Auto) 1.7 L (2-4) % Baso % (Auto) 0.8 (0-2) % Neut # (Auto) 7300 H (1683-6273) /uL Lymph # (Auto) 800 L (7379-9961) /uL [place] # (Auto) 1400 H (0-900) /uL Eos # (Auto) 200 (0-450) /uL Baso # (Auto) 100 (0-100) /uL PT 15.0 H (10.1-12.7) SECONDS INR 1.3 (0.9-1.3) Sodium 133 L (137-145) mmol/L Potassium 5.2 H (3.4-5.1) mmol/L Chloride 99 (98-107) mmol/L Carbon Dioxide 23 (22-32) mmol/L BUN 45 H (9-20) mg/dL Creatinine 2.09 H (0.66-1.25) mg/dL Estimated GFR 31 L (>60) mL/min BUN/Creatinine Ratio 21.5 (6-22) Glucose 135 H (80-110) mg/dL Lactate (0.7-2.1) mmol/L Calcium 8.1 L (8.4-10.2) mg/dL Total Bilirubin 0.5 (0.2-1.3) mg/dL AST 29 (17-59) IU/L ALT 21 (<50) IU/L Alkaline Phosphatase 130 H (38-126) U/L Troponin I 0.021 (0.01-0.034) ng/mL NT-Pro-B Natriuret Pep 9590 H (<450) pg/mL Total Protein 6.6 (6.3-8.2) g/dL Albumin 3.6 (3.5-5.0) g/dL Globulin 3.0 (1.7-4.1) g/dL Albumin/Globulin Ratio 1.2 (1.0-2.8) Chlamy pneumoniae PCR (Not Detect) Adenovirus (PCR) (Not Detect) B. pertussis DNA (PCR) (Not Detecte) B.parapertussis DNA PCR (Not Detecte) Coronavirus OC43 (PCR) (Not Detect) Coronavirus HKU1 (PCR) (Not Detect) Coronavirus 229E (PCR) (Not Detect) SARS-CoV-2 (PCR) (Not Detecte) Coronavirus NL63 (PCR) (Not Detect) Human Metapneumovir PCR (Not Detect) Influenza Type A (PCR) (Not Detect) Influenza Type B (PCR) (Not Detect) M. pneumoniae (PCR) (Not Detect) Parainfluenza 1 (PCR) (Not Detect) Parainfluenza 2 (PCR) (Not Detect) Parainfluenza 3 (PCR) (Not Detect) Parainfluenza 4 (PCR) (Not Detect) RSV (PCR) (Not Detect) Entero/Rhino (PCR) (Not Detect) 10/21/22 10/21/22 10/21/22 Range/Units 10:15 10:15 12:18 WBC (4.5-11.0) X10^3/uL RBC (4.5-5.9) X10^6/uL Hgb (13.5-17.5) g/dL Hct (41-53) % MCV (80-100) fL MCH (26-34) PG MCHC (30-36) % RDW (11.6-14.8) % Plt Count (150-400) X10^3/uL Neut % (Auto) (50-75) % Lymph % (Auto) (25-40) % [place] % (Auto) (3-14) % Eos % (Auto) (2-4) % Baso % (Auto) (0-2) % Neut # (Auto) (8995-0108) /uL Lymph # (Auto) (4160-4795) /uL [place] # (Auto) (0-900) /uL Eos # (Auto) (0-450) /uL Baso # (Auto) (0-100) /uL PT (10.1-12.7) SECONDS INR (0.9-1.3) Sodium (137-145) mmol/L Potassium (3.4-5.1) mmol/L Chloride (98-107) mmol/L Carbon Dioxide (22-32) mmol/L BUN (9-20) mg/dL Creatinine (0.66-1.25) mg/dL Estimated GFR (>60) mL/min BUN/Creatinine Ratio (6-22) Glucose (80-110) mg/dL Lactate 1.5 (0.7-2.1) mmol/L Calcium (8.4-10.2) mg/dL Total Bilirubin (0.2-1.3) mg/dL AST (17-59) IU/L ALT (<50) IU/L Alkaline Phosphatase (38-126) U/L Troponin I 0.020 (0.01-0.034) ng/mL NT-Pro-B Natriuret Pep (<450) pg/mL Total Protein (6.3-8.2) g/dL Albumin (3.5-5.0) g/dL Globulin (1.7-4.1) g/dL Albumin/Globulin Ratio (1.0-2.8) Chlamy pneumoniae PCR Not detected (Not Detect) Adenovirus (PCR) Not detected (Not Detect) B. pertussis DNA (PCR) Not detected (Not Detecte) B.parapertussis DNA PCR Not detected (Not Detecte) Coronavirus OC43 (PCR) Not detected (Not Detect) Coronavirus HKU1 (PCR) Not detected (Not Detect) Coronavirus 229E (PCR) Not detected (Not Detect) SARS-CoV-2 (PCR) Not detected (Not Detecte) Coronavirus NL63 (PCR) Not detected (Not Detect) Human Metapneumovir PCR Not detected (Not Detect) Influenza Type A (PCR) Not detected (Not Detect) Influenza Type B (PCR) Not detected (Not Detect) M. pneumoniae (PCR) Not detected (Not Detect) Parainfluenza 1 (PCR) Not detected (Not Detect) Parainfluenza 2 (PCR) Not detected (Not Detect) Parainfluenza 3 (PCR) Not detected (Not Detect) Parainfluenza 4 (PCR) Not detected (Not Detect) RSV (PCR) Not detected (Not Detect) Entero/Rhino (PCR) Not detected (Not Detect) Urine Dip Bedside Urine Glucose Negative Bedside Urine Bilirubin - Negative Bedside Urine Ketone - Negative Urine Specific Branch 1.015 Bedside Urine Occult Blood - Negative Bedside Urine pH 5.5 Bedside Urine Protein - Negative Bedside Urine Urobilinogen - Negative Bedside Urine Nitrite - Negative Bedside Urine Leukocytes - Negative Esterase Imaging Data Chest x-ray: Radiologist's Impression: PROCEDURE:? XR CHEST 1V ? INDICATIONS:? Shortness of breath ? TECHNIQUE:? One view of the chest was acquired.? ? COMPARISON:? [facility], CR, XR CHEST 1V, 01/08/2022, 9:24.? [facility], CR, XR CHEST 1V, 11/19/2021, 19:48. ? FINDINGS:? ? Surgical changes and devices:? Sternotomy wires. ? Lungs and pleura:? [id number] diffuse lung disease with nodular opacities.? Small effusions ? Mediastinum:? Cardiomegaly. ? Bones and chest wall:? No suspicious bony lesions.? Overlying soft tissues appear unremarkable.? ? ? IMPRESSION:? Low lung volumes limiting evaluation. ? Fhod-yw-hmatvlod diffuse lung disease, with bilateral nodular opacities.? Consider CT chest surveillance.? ? Small effusions.? ? Dictated by: Luke Waller M.D. on 10/21/2022 at 11:07 ? ? ECG Data Interpretation: Sinus rhythm rate 56 MD interval 186 QRS 172 QTC 501 with right bundle-branch block no ST changes similar to previous EKGs MDM Narrative Medical decision making narrative: Patient 82-year-old male history of congestive heart failure coronary artery disease insulin-dependent diabetes presenting today with increasing shortness of breath and fluid retention. reports that they do have difficulty with fluid balance and frequently kidneys are off. Today creatinine is 2.0 it is previously been 2.0 however his last 1.84. He is chronically anemic hemoglobin is stable at 8.5 with hematocrit 24.7. Viral panel is negative troponins are also negative. Chest x-ray shows [id number] diffuse lung disease. He actually just finished a course of antibiotics amoxicillin and azithromycin for presumed pneumonia prescribed by pulmonology. He has an outpatient CT scheduled intend use. He is given 80 mg of Lasix in the ED here urinated quite a bit ambulated without significant shortness of breath or chest pain. He previously was admitted in December for congestive heart failure that that time also had influenza. At this time not requiring oxygen has good outpatient follow-up and seems reasonable to be discharged Discharge Plan Departure Patient Disposition: Home Clinical Impression: CHF (congestive heart failure) Instructions: DI for Heart Failure Activity Restrictions/Additional Instructions: *You have been diagnosed with congestive heart failure *What to do: At this time please follow-up with Cardiology and pulmonology Continue weighing herself daily. Avoid high salt diet. Limit fluids 1.5 L daily *Continue to take medications as directed Lasix 40 mg twice a day for the next 2 days then resume your regular *Follow up with your primary care provider in 2-3 days or call [phone] *Return to ER if you should have increased chest pain shortness of breath fever weakness confusion [or] any new, worsening or concerning symptoms Prescriptions: No Action amlodipine [Norvasc] 10 mg tablet 10 tab PO 1XD Patient Comments: TAKE ONE TABLET BY MOUTH ONE TIME DAILY metformin 500 mg tablet 500 tab PO 1XD Patient Comments: TAKE 1 TABLET BY MOUTH EVERY morning AND 2 TABLETS EVERY evening carvedilol [Coreg] 12.5 mg tablet 12.5 tab PO 2XD Patient Comments: TAKE ONE TABLET BY MOUTH TWICE DAILY isosorbide mononitrate 30 mg tablet extended release 24 hr 30 tab PO 1XD Patient Comments: TAKE ONE TABLET BY MOUTH ONE TIME DAILY clopidogrel [Plavix] 75 mg tablet 75 tab PO 1XD Patient Comments: TAKE ONE TABLET BY MOUTH ONE TIME DAILY doxazosin [Cardura] 8 mg tablet 8 tab PO 1XD Patient Comments: TAKE ONE TABLET BY MOUTH ONE TIME DAILY pravastatin 80 mg tablet 80 tab PO 1XD furosemide [Lasix] 20 mg tablet 40 tab PO BID Patient Comments: TAKE ONE TABLET BY MOUTH ONE TIME DAILY losartan 100 mg tablet 100 tab PO 1XD Patient Comments: TAKE ONE TABLET BY MOUTH ONE TIME DAILY insulin glargine [Lantus Solostar U-100 Insulin] 100 unit/mL (3 mL) insulin pen 36 ea SUBCUT 1XD Patient Comments: INJECT 30 UNITS UNDER THE SKIN ONCE DAILY pantoprazole 40 mg tablet,delayed release (DR/EC) 40 mg PO BID Qty: 60 0RF metformin 500 mg Tablet 1,000 mg PO QPM fluticasone propionate 50 mcg/actuation spray,suspension 1 spray INTRANASAL DAILY Patient Comments: INSTILL 2 SPRAYS IN BOTH NOSTRILS DAILY Arnuity Ellipta 200 mcg/actuation blister with device 200 mcg INHALATION DAILY Patient Comments: INHALE ONE PUFF BY MOUTH ONE TIME DAILY. Rinse mouth with water after use to reduce aftertaste and incidence of candidiasis. Do not swallow. Referrals: Albert Sanchez DO [Primary Care Provider] - Stand Alone Forms: Patient Portal/API
[2022-10-21 11:58] LABS: Adenovirus Not Detected (Not Detect); B. parapertussis Not Detected (Not Detecte); Bordetella pertussis Not Detected (Not Detecte); Chlamydophila pneumoniae Not Detected (Not Detect); Coronavirus 229E Not Detected (Not Detect); Coronavirus HKU1 Not Detected (Not Detect); Coronavirus NL 63 Not Detected (Not Detect); Coronavirus OC43 Not Detected (Not Detect); Human Metapneumovirus Not Detected (Not Detect); Human Rhinovirus/Enterovirus Not Detected (Not Detect); Influenza A Not Detected (Not Detect); Influenza B Not Detected (Not Detect); Parainfluenza Virus 1 Not Detected (Not Detect); Parainfluenza Virus 2 Not Detected (Not Detect); Parainfluenza Virus 3 Not Detected (Not Detect); Parainfluenza Virus 4 Not Detected (Not Detect); Respiratory Syncytial Virus Not Detected (Not Detect); SARS- CoV-2 Not Detected (Not Detecte)
[2022-10-21 11:59] LABS: Mycoplasma pneumoniae Not Detected (Not Detect)
[2022-10-21] MEDS: FUROSEMIDE 80 MG in SODIUM CHLORIDE 0.9% 50 ML 116 MG IV (12:06)
--- NOTE | 2022-10-21 14:07 | PC.NURSE ---
Pt ambulated in department with steady gait using a walker. While ambulating pt's SpO2 was 94% RA and HR 58. Pt denies dizziness. MD and primary RN notified.
== END 2022-10-21 14:41 | disposition home or self-care (01) ==
PROVIDERS: Emergency Provider Emergency Medicine; PCP Family Medicine
DX: I50.9 Heart failure, unspecified (principal); R06.02 Shortness of breath; R60.9 Edema, unspecified; Z79.01 Long term (current) use of anticoagulants; Z79.899 Other long term (current) drug therapy; Z20.822 Contact with and (suspected) exposure to COVID-19
CPT/HCPCS: 36415; 71045; 80053; 81003; 83605; 83880; 84484; 85025; 85610; 87633; 93005; 93010; 96365; 99284; J1940

== ENCOUNTER 2022-11-21 10:04 | Emergency (ER) | payer MEDICARE, SELFPAY ==
[2022-01-08 12:06] VITALS: BMI 32.5
[2022-11-21] VITALS (31 sets, daily range): BP systolic 116–171; BP diastolic 57–92; PULSE 47–62; RESP 8–27; TEMP 36.4; O2SAT 88–99; BMI 34.2
--- NOTE | 2022-11-21 10:28 | DI.RAD.S_ITS ---
PROCEDURE: XR CHEST 1V INDICATIONS: chest pain TECHNIQUE: One view of the chest was acquired. COMPARISON: [facility], CR, XR CHEST 1V, 10/21/2022, 10:19. [facility], CR, XR CHEST 1V, 01/08/2022, 9:24. FINDINGS: Surgical changes and devices: Median sternotomy wires. Surgical clips project over the mediastinum. Lungs and pleura: Small left pleural effusion. Hazy opacities present at the lower lungs bilaterally. Nodular opacities redemonstrated in both lungs. No pneumothorax. Mediastinum: Cardiac silhouette is enlarged. Bones and chest wall: No suspicious bony lesions. Overlying soft tissues appear unremarkable. IMPRESSION: 1. Findings compatible with fluid overload/CHF. Pulmonary opacities at the lower lungs may represent a combination of atelectasis and edema but aspiration or pneumonia cannot be excluded. 2. Nodular opacities redemonstrated within both lungs, nonspecific. Pulmonary nodules are possible. CT of the chest could be of obtained for further evaluation as clinically indicated. Dictated by: Yadiel He M.D. on 11/21/2022 at 13:08 Approved by: Yadiel He M.D. on 11/21/2022 at 13:11
[2022-11-21 10:44] LABS: Add Manual Diff / Slide Review NO; Basophils Absolute Auto 100 /uL (0-100); Basophils Percent Auto 0.8 % (0-2); Eosinophils Absolute Auto 100 /uL (0-450); Eosinophils Percent Auto 0.6 % (2-4); Hematocrit 26.3 % (41-53); Hemoglobin 8.5 g/dL (13.5-17.5); Lymphocytes Absolute Auto 800 /uL (1100-4500); Lymphocytes Percent Auto 8.6 % (25-40); Mean Corpuscular HGB Conc 32.2 % (30-36); Mean Corpuscular Hemoglobin 27.2 PG (26-34); Mean Corpuscular Volume 84.4 fL (80-100); Monocytes Absolute Auto 1300 /uL (0-900); Monocytes Percent Auto 13.4 % (3-14); Neutrophils Absolute Auto 7600 /uL (1500-7000); Neutrophils Percent Auto 76.6 % (50-75); Platelet Count 232 X10^3/uL (150-400); Red Blood Cell Count 3.11 X10^6/uL (4.5-5.9); Red Cell Distribution Width 17.7 % (11.6-14.8); White Blood Cell Count 9.9 X10^3/uL (4.5-11.0)
[2022-11-21 10:52] LABS: INR 1.3 (0.9-1.3); Prothrombin Time 15.5 SECONDS (10.1-12.7)
[2022-11-21 10:55] LABS: PTT Partial Thromboplastin Tim 28 SECONDS (26-36)
[2022-11-21 10:58] LABS: Alanine Aminotransferase 31 IU/L (<50); Albumin 3.5 g/dL (3.5-5.0); Albumin Globulin Ratio 1.2 (1.0-2.8); Alkaline Phosphatase 132 U/L (38-126); Aspartate Aminotransferase 36 IU/L (17-59); BUN Creatinine Ratio 31.4 (6-22); Bilirubin Total 0.3 mg/dL (0.2-1.3); Blood Urea Nitrogen 71 mg/dL (9-20); Calcium 8.5 mg/dL (8.4-10.2); Carbon Dioxide 22 mmol/L (22-32); Chloride 95 mmol/L (98-107); Creatine Kinase 31 U/L (55-170); Estimated Glomerular Filt Rate 28 mL/min (>60); Glucose 144 mg/dL (80-110); HEMOLYSIS < 15 (0-50); Lipase 162 U/L (23-300); Magnesium 2.4 mg/dL (1.6-2.3); Sodium 128 mmol/L (137-145); Total Protein 6.5 g/dL (6.3-8.2)
[2022-11-21 11:02] LABS: Potassium 5.5 mmol/L (3.4-5.1)
[2022-11-21 11:07] LABS: NT-proBNP (BNP-Adult 18+) 14100 pg/mL (<450)
[2022-11-21 11:10] LABS: Troponin I 0.065 ng/mL (0.01-0.034)
--- NOTE | 2022-11-21 11:21 | ED.SOB ---
HPI - SOB/Dyspnea <Braulio PhoenixDO - Last Filed: 11/22/22 08:56> General Chief Complaint: Shortness of Breath/Dyspnea Stated Complaint: SOB/retaining water Time Seen by Provider: 11/21/22 10:07 Source: patient and family Mode of arrival: Wheelchair Limitations: no limitations History of Present Illness HPI Narrative: 82-year-old male former smoker with history of hypertension, CHF with most recent echo available to us from December of 2021 noting EF of 30% with moderate to severe global hypokinesis presents with a chief complaint of increasing shortness of breath with exertion and lying flat. Additionally he is had increased bilateral lower extremity edema and a 4 lb weight gain. He has been increasing his Lasix with limited to no results. 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 Other than the recent addition of prednisone for the past few days and some alterations in his Lasix which require increased dosing due to symptoms at home he denies any other change in medications. Family does state that when all this started they likely ate some foods that are high in salt which probably precipitated this. He denies any runny nose or sore throat. He is had no fever or chills. Related Data Home Medications Medication Instructions Recorded Confirmed amlodipine 10 mg tablet (Norvasc) 10 tab PO 1XD 07/28/21 01/08/22 carvedilol 12.5 mg tablet (Coreg) 12.5 tab PO 2XD 07/28/21 01/08/22 clopidogrel 75 mg tablet (Plavix) 75 tab PO 1XD 07/28/21 01/08/22 doxazosin 8 mg tablet (Cardura) 8 tab PO 1XD 07/28/21 01/08/22 furosemide 20 mg tablet (Lasix) 40 tab PO BID 07/28/21 01/08/22 insulin glargine 100 unit/mL (3 36 ea SUBCUT 1XD 07/28/21 01/08/22 mL) subcutaneous pen (Lantus Solostar U-100 Insulin) isosorbide mononitrate 30 mg 30 tab PO 1XD 07/28/21 01/08/22 tablet,extended release 24 hr losartan 100 mg tablet 100 tab PO 1XD 06/19/22 11/30/22 metformin 500 mg tablet 500 tab PO 1XD 07/28/21 01/08/22 pravastatin 80 mg tablet 80 tab PO 1XD 07/28/21 01/08/22 metformin 500 mg tablet 1,000 mg PO QPM 08/01/21 01/08/22 fluticasone furoate 200 200 mcg inhalation DAILY 01/08/22 01/08/22 mcg/actuation blister powder for inhalation (Arnuity Ellipta) fluticasone propionate 50 1 spray intranasal DAILY 01/08/22 01/08/22 mcg/actuation nasal spray,suspension Previous Rx's Medication Instructions Recorded pantoprazole 40 mg tablet,delayed 40 mg PO BID #60 tabs 08/01/21 release Allergies Allergy/AdvReac Type Severity Reaction Status Date / Time No Known Drug Allergies Allergy Verified 11/21/22 10:24 Review of Systems <Braulio Phoenix DO - Last Filed: 11/22/22 08:56> Review of Systems Narrative: GENERAL: Denies chills, fatigue, malaise, fever, sweats. HEENT: Denies sinus pain, ear pain, sore throat, difficulty swallowing, dizziness. RESPIRATORY: See HPI CARDIOVASCULAR: See HPI GASTROINTESTINAL: Denies nausea, vomiting, abdominal pain, diarrhea, constipation, melena. : Denies dysuria, frequency, incontinence, hematuria, urinary retention. MUSCULOSKELETAL: denies weakness, joint pain, or bony pain SKIN: Denies rash, skin lesions, or other NEUROLOGIC: Denies weakness, headache, numbness, change in speech, confusion, seizures, incoordination. PSYCHIATRIC: No concerning psychosocial issues. 12 point review of systems is negative except for those stated above Patient History <Braulio Phoenix DO - Last Filed: 11/22/22 08:56> Medical History Type 2 diabetes mellitus Hyperlipidemia Hypertension Coronary artery disease Surgical History History of coronary artery bypass graft x 3 Social History household members: spouse Smoking Status: Former smoker alcohol intake: never Smoking Status: Former smoker alcohol intake frequency: 0-2 drinks per day Substance Use Type: does not use Exam <Braulio Phoenix DO - Last Filed: 11/22/22 08:56> Narrative Exam Narrative: GENERAL: [82] year old patient appears stated age. Well-developed patient, in mild distress. HEAD: Atraumatic. Normocephalic. EYES: Pupils equal round and reactive. Extraocular motions intact. No scleral icterus. No injection or drainage. ENT: Nose without bleeding, purulent drainage. Throat without erythema, tonsillar hypertrophy or exudate. Airway patent. NECK: Trachea midline. Non tender CARDIOVASCULAR: Regular rate and rhythm without murmurs, gallops, or rubs. RESPIRATORY: Increased work of breathing, crackles in bilateral bases GASTROINTESTINAL: Abdomen soft, non-tender, nondistended. EXTREMITIES: 2+ pitting edema bilateral lower extremities BACK: Nontender without deformity or crepitance. No flank tenderness. NEURO: AOx3. SKIN: No rash or erythema of visible areas Initial Vital Signs Initial Vital Signs: Vital Signs Temperature 97.5 F L 11/21/22 10:19 Pulse Rate 54 L 11/21/22 10:19 Respiratory Rate 22 11/21/22 10:19 Blood Pressure 116/57 L 11/21/22 10:19 Pulse Oximetry 95 11/21/22 10:19 Oxygen Delivery Method Room Air 11/21/22 10:19 <Juan Jang DO - Last Filed: 11/21/22 21:45> Initial Vital Signs Initial Vital Signs: Vital Signs Temperature 97.5 F L 11/21/22 10:19 Pulse Rate 54 L 11/21/22 10:19 Respiratory Rate 22 11/21/22 10:19 Blood Pressure 116/57 L 11/21/22 10:19 Pulse Oximetry 95 11/21/22 10:19 Oxygen Delivery Method Room Air 11/21/22 10:19 Course <Braulio Phoenix DO - Last Filed: 11/22/22 08:56> Orders Ordered: Discontinued Medications Albuterol (Albuterol 2.5 Mg/3 Ml Neb (Adult)) 20 mg INH NOW ONE Stop: 11/21/22 15:07 Last Admin: 11/21/22 15:30 Dose: 20 mg Documented By: PETEY Furosemide (Furosemide 40 Mg/4 Ml Vial) 40 mg IV NOW ONE Stop: 11/21/22 12:17 Last Admin: 11/21/22 12:22 Dose: 40 mg Documented By: YUNIOR Dextrose (D10w) 100 mls @ 1,200 mls/hr IV PRN PRN PRN Reason: Hypoglycemia Last Infusion: 11/21/22 15:45 Dose: Infused Documented By: Admin: 11/21/22 15:33 Dose: 1,200 mls/hr Documented By: YOSELYN Calcium Gluconate 4.65 meq/ (Sodium Chloride) 60 mls @ 180 mls/hr IV NOW ONE Stop: 11/21/22 20:01 Last Infusion: 11/21/22 20:18 Dose: Infused Documented By: Admin: 11/21/22 19:51 Dose: 180 mls/hr Documented By: Insulin Human Regular (Insulin Regular 100 Unit/Ml 3 Ml Vial) 5 unit IV NOW ONE Stop: 11/21/22 15:07 Last Admin: 11/21/22 15:29 Dose: 5 unit Documented By: YOSELYN Co-signed By: SPF Sodium Polystyrene Sulfonate (Sodium Polystyrene Sulfon/Sorb 15 Gm/60 Ml Cup) 30 gm PO NOW ONE Stop: 11/21/22 19:43 Last Admin: 11/21/22 19:51 Dose: 30 gm Documented By: Vital Signs Vital signs: Vital Signs - 8 hr 11/21/22 14:00 11/21/22 14:30 11/21/22 14:30 Pulse Rate 50 L 50 L Respiratory Rate Blood Pressure 119/63 Pulse Oximetry 92 92 Oxygen Delivery Method Oxygen Flow Rate 11/21/22 15:00 11/21/22 15:00 11/21/22 15:30 Pulse Rate 52 L Respiratory Rate Blood Pressure 123/58 L 122/59 L Pulse Oximetry 92 Oxygen Delivery Method Oxygen Flow Rate 11/21/22 15:30 11/21/22 15:30 11/21/22 16:00 Pulse Rate 51 L 52 L 54 L Respiratory Rate 26 H 24 27 H Blood Pressure Pulse Oximetry 93 92 91 Oxygen Delivery Method Room Air Room Air Oxygen Flow Rate 11/21/22 16:00 11/21/22 16:30 11/21/22 16:30 Pulse Rate 53 L Respiratory Rate 27 H Blood Pressure 130/63 145/63 H Pulse Oximetry 99 Oxygen Delivery Method Oxygen Flow Rate 11/21/22 17:00 11/21/22 17:01 11/21/22 17:01 Pulse Rate 59 L 57 L Respiratory Rate Blood Pressure 127/80 Pulse Oximetry 89 L 89 L Oxygen Delivery Method Room Air Oxygen Flow Rate 11/21/22 17:30 11/21/22 17:31 11/21/22 17:31 Pulse Rate 57 L 62 Respiratory Rate Blood Pressure 121/59 L Pulse Oximetry 98 98 Oxygen Delivery Method Nasal Cannula Oxygen Flow Rate 2 11/21/22 17:52 11/21/22 17:52 11/21/22 18:00 Pulse Rate 58 L 58 L Respiratory Rate 17 18 Blood Pressure 145/70 H Pulse Oximetry 95 95 Oxygen Delivery Method Nasal Cannula Oxygen Flow Rate 2 11/21/22 18:30 11/21/22 19:00 11/21/22 19:30 Pulse Rate 60 54 L 52 L Respiratory Rate 20 15 Blood Pressure Pulse Oximetry 91 92 92 Oxygen Delivery Method Nasal Cannula Oxygen Flow Rate 2 11/21/22 19:32 11/21/22 19:32 11/21/22 20:00 Pulse Rate 53 L Respiratory Rate 8 L Blood Pressure 158/73 H 168/92 H Pulse Oximetry 92 Oxygen Delivery Method Oxygen Flow Rate 11/21/22 20:00 11/21/22 20:30 11/21/22 20:31 Pulse Rate 56 L 62 Respiratory Rate 14 13 Blood Pressure 160/70 H Pulse Oximetry 96 93 Oxygen Delivery Method Oxygen Flow Rate 11/21/22 20:31 11/21/22 21:00 11/21/22 21:00 Pulse Rate 62 58 L Respiratory Rate 16 Blood Pressure 160/80 H Pulse Oximetry 92 92 Oxygen Delivery Method Nasal Cannula Nasal Cannula Oxygen Flow Rate 2 2 <Juan Jang DO - Last Filed: 11/21/22 21:45> Orders Ordered: Discontinued Medications Albuterol (Albuterol 2.5 Mg/3 Ml Neb (Adult)) 20 mg INH NOW ONE Stop: 11/21/22 15:07 Last Admin: 11/21/22 15:30 Dose: 20 mg Documented By: PETEY Furosemide (Furosemide 40 Mg/4 Ml Vial) 40 mg IV NOW ONE Stop: 11/21/22 12:17 Last Admin: 11/21/22 12:22 Dose: 40 mg Documented By: YUNIOR Dextrose (D10w) 100 mls @ 1,200 mls/hr IV PRN PRN PRN Reason: Hypoglycemia Last Infusion: 11/21/22 15:45 Dose: Infused Documented By: Admin: 11/21/22 15:33 Dose: 1,200 mls/hr Documented By: YOSELYN Calcium Gluconate 4.65 meq/ (Sodium Chloride) 60 mls @ 180 mls/hr IV NOW ONE Stop: 11/21/22 20:01 Last Infusion: 11/21/22 20:18 Dose: Infused Documented By: Admin: 11/21/22 19:51 Dose: 180 mls/hr Documented By: Insulin Human Regular (Insulin Regular 100 Unit/Ml 3 Ml Vial) 5 unit IV NOW ONE Stop: 11/21/22 15:07 Last Admin: 11/21/22 15:29 Dose: 5 unit Documented By: YOSELYN Co-signed By: SPF Sodium Polystyrene Sulfonate (Sodium Polystyrene Sulfon/Sorb 15 Gm/60 Ml Cup) 30 gm PO NOW ONE Stop: 11/21/22 19:43 Last Admin: 11/21/22 19:51 Dose: 30 gm Documented By: Vital Signs Vital signs: Vital Signs - 8 hr 11/21/22 14:00 11/21/22 14:30 11/21/22 14:30 Pulse Rate 50 L 50 L Respiratory Rate Blood Pressure 119/63 Pulse Oximetry 92 92 Oxygen Delivery Method Oxygen Flow Rate 11/21/22 15:00 11/21/22 15:00 11/21/22 15:30 Pulse Rate 52 L Respiratory Rate Blood Pressure 123/58 L 122/59 L Pulse Oximetry 92 Oxygen Delivery Method Oxygen Flow Rate 11/21/22 15:30 11/21/22 15:30 11/21/22 16:00 Pulse Rate 51 L 52 L 54 L Respiratory Rate 26 H 24 27 H Blood Pressure Pulse Oximetry 93 92 91 Oxygen Delivery Method Room Air Room Air Oxygen Flow Rate 11/21/22 16:00 11/21/22 16:30 11/21/22 16:30 Pulse Rate 53 L Respiratory Rate 27 H Blood Pressure 130/63 145/63 H Pulse Oximetry 99 Oxygen Delivery Method Oxygen Flow Rate 11/21/22 17:00 11/21/22 17:01 11/21/22 17:01 Pulse Rate 59 L 57 L Respiratory Rate Blood Pressure 127/80 Pulse Oximetry 89 L 89 L Oxygen Delivery Method Room Air Oxygen Flow Rate 11/21/22 17:30 11/21/22 17:31 11/21/22 17:31 Pulse Rate 57 L 62 Respiratory Rate Blood Pressure 121/59 L Pulse Oximetry 98 98 Oxygen Delivery Method Nasal Cannula Oxygen Flow Rate 2 11/21/22 17:52 11/21/22 17:52 11/21/22 18:00 Pulse Rate 58 L 58 L Respiratory Rate 17 18 Blood Pressure 145/70 H Pulse Oximetry 95 95 Oxygen Delivery Method Nasal Cannula Oxygen Flow Rate 2 11/21/22 18:30 11/21/22 19:00 11/21/22 19:30 Pulse Rate 60 54 L 52 L Respiratory Rate 20 15 Blood Pressure Pulse Oximetry 91 92 92 Oxygen Delivery Method Nasal Cannula Oxygen Flow Rate 2 11/21/22 19:32 11/21/22 19:32 11/21/22 20:00 Pulse Rate 53 L Respiratory Rate 8 L Blood Pressure 158/73 H 168/92 H Pulse Oximetry 92 Oxygen Delivery Method Oxygen Flow Rate 11/21/22 20:00 11/21/22 20:30 11/21/22 20:31 Pulse Rate 56 L 62 Respiratory Rate 14 13 Blood Pressure 160/70 H Pulse Oximetry 96 93 Oxygen Delivery Method Oxygen Flow Rate 11/21/22 20:31 11/21/22 21:00 11/21/22 21:00 Pulse Rate 62 58 L Respiratory Rate 16 Blood Pressure 160/80 H Pulse Oximetry 92 92 Oxygen Delivery Method Nasal Cannula Nasal Cannula Oxygen Flow Rate 2 2 MDM - SOB/Dyspnea <Braulio Phoenix, DO - Last Filed: 11/22/22 08:56> Lab Data 11/21/22 10:30 11/21/22 17:55 Labs: Lab Results 11/21/22 11/21/22 11/21/22 Range/Units 10:30 14: 16:30 WBC 9.9 (4.5-11.0) X10^3/uL RBC 3.11 L (4.5-5.9) X10^6/uL Hgb 8.5 L (13.5-17.5) g/dL Hct 26.3 L (41-53) % MCV 84.4 (80-100) fL MCH 27.2 (26-34) PG MCHC 32.2 (30-36) % RDW 17.7 H (11.6-14.8) % Plt Count 232 (150-400) X10^3/uL Neut % (Auto) 76.6 H (50-75) % Lymph % (Auto) 8.6 L (25-40) % [place] % (Auto) 13.4 (3-14) % Eos % (Auto) 0.6 L (2-4) % Baso % (Auto) 0.8 (0-2) % Neut # (Auto) 7600 H (1564-5149) /uL Lymph # (Auto) 800 L (1660-6998) /uL [place] # (Auto) 1300 H (0-900) /uL Eos # (Auto) 100 (0-450) /uL Baso # (Auto) 100 (0-100) /uL PT 15.5 H (10.1-12.7) SECONDS INR 1.3 (0.9-1.3) APTT 28 (26-36) SECONDS Sodium 128 L 128 L (137-145) mmol/L Potassium 5.5 H 5.8 H (3.4-5.1) mmol/L Chloride 95 L 95 L (98-107) mmol/L Carbon Dioxide 22 24 (22-32) mmol/L BUN 71 H 70 H (9-20) mg/dL Creatinine 2.26 H 2.37 H (0.66-1.25) mg/dL Estimated GFR 28 L 27 L (>60) mL/min BUN/Creatinine Ratio 31.4 H 29.5 H (6-22) Glucose 144 H 127 H (80-110) mg/dL Calcium 8.5 8.7 (8.4-10.2) mg/dL Magnesium 2.4 H (1.6-2.3) mg/dL Total Bilirubin 0.3 (0.2-1.3) mg/dL AST 36 (17-59) IU/L ALT 31 (<50) IU/L Alkaline Phosphatase 132 H (38-126) U/L Total Creatine Kinase 31 L 29 L (55-170) U/L Troponin I 0.065 H 0.053 H (0.01-0.034) ng/mL NT-Pro-B Natriuret Pep 28285 H (<450) pg/mL Total Protein 6.5 (6.3-8.2) g/dL Albumin 3.5 (3.5-5.0) g/dL Globulin 3.0 (1.7-4.1) g/dL Albumin/Globulin Ratio 1.2 (1.0-2.8) Lipase 162 (23-300) U/L SARS-CoV-2 (PCR) Negative (Negative) 11/21/22 Range/Units 17:55 WBC (4.5-11.0) X10^3/uL RBC (4.5-5.9) X10^6/uL Hgb (13.5-17.5) g/dL Hct (41-53) % MCV (80-100) fL MCH (26-34) PG MCHC (30-36) % RDW (11.6-14.8) % Plt Count (150-400) X10^3/uL Neut % (Auto) (50-75) % Lymph % (Auto) (25-40) % [place] % (Auto) (3-14) % Eos % (Auto) (2-4) % Baso % (Auto) (0-2) % Neut # (Auto) (7477-7580) /uL Lymph # (Auto) (8685-6390) /uL [place] # (Auto) (0-900) /uL Eos # (Auto) (0-450) /uL Baso # (Auto) (0-100) /uL PT (10.1-12.7) SECONDS INR (0.9-1.3) APTT (26-36) SECONDS Sodium 128 L (137-145) mmol/L Potassium 5.9 H (3.4-5.1) mmol/L Chloride 98 (98-107) mmol/L Carbon Dioxide 19 L (22-32) mmol/L BUN 69 H (9-20) mg/dL Creatinine 2.13 H (0.66-1.25) mg/dL Estimated GFR 30 L (>60) mL/min BUN/Creatinine Ratio 32.4 H (6-22) Glucose 189 H (80-110) mg/dL Calcium 8.3 L (8.4-10.2) mg/dL Magnesium (1.6-2.3) mg/dL Total Bilirubin (0.2-1.3) mg/dL AST (17-59) IU/L ALT (<50) IU/L Alkaline Phosphatase (38-126) U/L Total Creatine Kinase (55-170) U/L Troponin I (0.01-0.034) ng/mL NT-Pro-B Natriuret Pep (<450) pg/mL Total Protein (6.3-8.2) g/dL Albumin (3.5-5.0) g/dL Globulin (1.7-4.1) g/dL Albumin/Globulin Ratio (1.0-2.8) Lipase (23-300) U/L SARS-CoV-2 (PCR) (Negative) Point of Care Testing Glucose POC 117 MDM Narrative Medical decision making narrative: 82-year-old male with increasing shortness of breath, weight gain and lower extremity edema. Concern for CHF is found to have clinical markers consistent with CHF as well as lab abnormalities and a chest x-ray demonstrating CHF. He is also found to have worsening kidney function with a rising potassium. After diuresis there is no improvement in his work of breathing which demonstrates a resting pulse ox in the upper 80s to low 90s any exertion makes him profoundly short of breath and hypoxic. Patient has had his potassium treated Lasix, albuterol, insulin and dextrose. I discussed with the hospitalist (Dr. Overton) who states given his difficult treatment of fluid overload and worsening renal function he is most appropriately transferred to a facility with access to Cardiology and Nephrology, neither of which are available here. <Juan Jang, DO - Last Filed: 11/21/22 21:45> Lab Data Labs: Lab Results 11/21/22 11/21/22 11/21/22 Range/Units 10:30 14:23 16:30 WBC 9.9 (4.5-11.0) X10^3/uL RBC 3.11 L (4.5-5.9) X10^6/uL Hgb 8.5 L (13.5-17.5) g/dL Hct 26.3 L (41-53) % MCV 84.4 (80-100) fL MCH 27.2 (26-34) PG MCHC 32.2 (30-36) % RDW 17.7 H (11.6-14.8) % Plt Count 232 (150-400) X10^3/uL Neut % (Auto) 76.6 H (50-75) % Lymph % (Auto) 8.6 L (25-40) % [place] % (Auto) 13.4 (3-14) % Eos % (Auto) 0.6 L (2-4) % Baso % (Auto) 0.8 (0-2) % Neut # (Auto) 7600 H (7278-7636) /uL Lymph # (Auto) 800 L (5375-8834) /uL [place] # (Auto) 1300 H (0-900) /uL Eos # (Auto) 100 (0-450) /uL Baso # (Auto) 100 (0-100) /uL PT 15.5 H (10.1-12.7) SECONDS INR 1.3 (0.9-1.3) APTT 28 (26-36) SECONDS Sodium 128 L 128 L (137-145) mmol/L Potassium 5.5 H 5.8 H (3.4-5.1) mmol/L Chloride 95 L 95 L (98-107) mmol/L Carbon Dioxide 22 24 (22-32) mmol/L BUN 71 H 70 H (9-20) mg/dL Creatinine 2.26 H 2.37 H (0.66-1.25) mg/dL Estimated GFR 28 L 27 L (>60) mL/min BUN/Creatinine Ratio 31.4 H 29.5 H (6-22) Glucose 144 H 127 H (80-110) mg/dL Calcium 8.5 8.7 (8.4-10.2) mg/dL Magnesium 2.4 H (1.6-2.3) mg/dL Total Bilirubin 0.3 (0.2-1.3) mg/dL AST 36 (17-59) IU/L ALT 31 (<50) IU/L Alkaline Phosphatase 132 H (38-126) U/L Total Creatine Kinase 31 L 29 L (55-170) U/L Troponin I 0.065 H 0.053 H (0.01-0.034) ng/mL NT-Pro-B Natriuret Pep 55024 H (<450) pg/mL Total Protein 6.5 (6.3-8.2) g/dL Albumin 3.5 (3.5-5.0) g/dL Globulin 3.0 (1.7-4.1) g/dL Albumin/Globulin Ratio 1.2 (1.0-2.8) Lipase 162 (23-300) U/L SARS-CoV-2 (PCR) Negative (Negative) 11/21/22 Range/Units 17:55 WBC (4.5-11.0) X10^3/uL RBC (4.5-5.9) X10^6/uL Hgb (13.5-17.5) g/dL Hct (41-53) % MCV (80-100) fL MCH (26-34) PG MCHC (30-36) % RDW (11.6-14.8) % Plt Count (150-400) X10^3/uL Neut % (Auto) (50-75) % Lymph % (Auto) (25-40) % [place] % (Auto) (3-14) % Eos % (Auto) (2-4) % Baso % (Auto) (0-2) % Neut # (Auto) (9268-4653) /uL Lymph # (Auto) (5444-0251) /uL [place] # (Auto) (0-900) /uL Eos # (Auto) (0-450) /uL Baso # (Auto) (0-100) /uL PT (10.1-12.7) SECONDS INR (0.9-1.3) APTT (26-36) SECONDS Sodium 128 L (137-145) mmol/L Potassium 5.9 H (3.4-5.1) mmol/L Chloride 98 (98-107) mmol/L Carbon Dioxide 19 L (22-32) mmol/L BUN 69 H (9-20) mg/dL Creatinine 2.13 H (0.66-1.25) mg/dL Estimated GFR 30 L (>60) mL/min BUN/Creatinine Ratio 32.4 H (6-22) Glucose 189 H (80-110) mg/dL Calcium 8.3 L (8.4-10.2) mg/dL Magnesium (1.6-2.3) mg/dL Total Bilirubin (0.2-1.3) mg/dL AST (17-59) IU/L ALT (<50) IU/L Alkaline Phosphatase (38-126) U/L Total Creatine Kinase (55-170) U/L Troponin I (0.01-0.034) ng/mL NT-Pro-B Natriuret Pep (<450) pg/mL Total Protein (6.3-8.2) g/dL Albumin (3.5-5.0) g/dL Globulin (1.7-4.1) g/dL Albumin/Globulin Ratio (1.0-2.8) Lipase (23-300) U/L SARS-CoV-2 (PCR) (Negative) Point of Care Testing Glucose POC 117 MDM Narrative Medical decision making narrative: 82-year-old male with increasing shortness of breath, weight gain and lower extremity edema. Concern for CHF is found to have clinical markers consistent with CHF as well as lab abnormalities and a chest x-ray demonstrating CHF. He is also found to have worsening kidney function with a rising potassium. After diuresis there is no improvement in his work of breathing which demonstrates a resting pulse ox in the upper 80s to low 90s any exertion makes him profoundly short of breath and hypoxic. Patient has had his potassium treated Lasix, albuterol, insulin and dextrose. I discussed with the hospitalist (Dr. Overton) who states given his difficult treatment of fluid overload and worsening renal function he is most appropriately transferred to a facility with access to Cardiology and Nephrology, neither of which are available here. Dr jang: Received turned over. Review patient's history and physical exam and workup up to this point. Patient's kidney function has improved over his potassium continues to increase. He is no EKG changes based on this. He has diuresed after receiving IV Lasix. Plan is to transfer to facility that has Cardiology and Nephrology given his kidney function in his rising potassium. I did discuss the case with Dr. Mittal hospitalist at [facility] who accepts patient for transfer. Kayexalate and calcium given per his request. Patient is stable for transport. Critical Care Time <Braulio Phoenix, - Last Filed: 11/22/22 08:56> Critical Care Time Critical Care Time: Yes Total Critical Care Time: 45 Attestation: The high probability of a clinically significant, sudden or life threatening deterioration of the [CV] system(s) required my full and direct attention, intervention and personal management. The aggregate critical care time was [45] minutes. This time is in addition to time spent performing reported procedures but includes the following: [x] Data Review and interpretation [x] Patient assessment and monitoring of vital signs [x] Documentation [x] Medication orders and management Discharge Plan Departure Patient Disposition: [facility] Clinical Impression: CHF (congestive heart failure), Hyperkalemia Prescriptions: No Action amlodipine [Norvasc] 10 mg tablet 10 tab PO 1XD Patient Comments: TAKE ONE TABLET BY MOUTH ONE TIME DAILY metformin 500 mg tablet 500 tab PO 1XD Patient Comments: TAKE 1 TABLET BY MOUTH EVERY morning AND 2 TABLETS EVERY evening carvedilol [Coreg] 12.5 mg tablet 12.5 tab PO 2XD Patient Comments: TAKE ONE TABLET BY MOUTH TWICE DAILY isosorbide mononitrate 30 mg tablet extended release 24 hr 30 tab PO 1XD Patient Comments: TAKE ONE TABLET BY MOUTH ONE TIME DAILY clopidogrel [Plavix] 75 mg tablet 75 tab PO 1XD Patient Comments: TAKE ONE TABLET BY MOUTH ONE TIME DAILY doxazosin [Cardura] 8 mg tablet 8 tab PO 1XD Patient Comments: TAKE ONE TABLET BY MOUTH ONE TIME DAILY pravastatin 80 mg tablet 80 tab PO 1XD furosemide [Lasix] 20 mg tablet 40 tab PO BID Patient Comments: TAKE ONE TABLET BY MOUTH ONE TIME DAILY losartan 100 mg tablet 100 tab PO 1XD Patient Comments: TAKE ONE TABLET BY MOUTH ONE TIME DAILY insulin glargine [Lantus Solostar U-100 Insulin] 100 unit/mL (3 mL) insulin pen 36 ea SUBCUT 1XD Patient Comments: INJECT 30 UNITS UNDER THE SKIN ONCE DAILY pantoprazole 40 mg tablet,delayed release (DR/EC) 40 mg PO BID Qty: 60 0RF metformin 500 mg Tablet 1,000 mg PO QPM fluticasone propionate 50 mcg/actuation spray,suspension 1 spray INTRANASAL DAILY Patient Comments: INSTILL 2 SPRAYS IN BOTH NOSTRILS DAILY Arnuity Ellipta 200 mcg/actuation blister with device 200 mcg INHALATION DAILY Patient Comments: INHALE ONE PUFF BY MOUTH ONE TIME DAILY. Rinse mouth with water after use to reduce aftertaste and incidence of candidiasis. Do not swallow. Referrals: Albert Sanchez DO [Primary Care Provider] -
[2022-11-21] MEDS: FUROSEMIDE 40 MG/4 ML VIAL IV (12:22)
[2022-11-21 14:54] LABS: BUN Creatinine Ratio 29.5 (6-22); Blood Urea Nitrogen 70 mg/dL (9-20); Calcium 8.7 mg/dL (8.4-10.2); Carbon Dioxide 24 mmol/L (22-32); Chloride 95 mmol/L (98-107); Creatine Kinase 29 U/L (55-170); Estimated Glomerular Filt Rate 27 mL/min (>60); Glucose 127 mg/dL (80-110); HEMOLYSIS < 15 (0-50); Sodium 128 mmol/L (137-145)
[2022-11-21 14:56] LABS: Potassium 5.8 mmol/L (3.4-5.1)
[2022-11-21 15:07] LABS: Troponin I 0.053 ng/mL (0.01-0.034)
[2022-11-21] MEDS: INSULIN REGULAR 100 UNIT/ML 3 ML VIAL IV (15:29)
[2022-11-21] MEDS: ALBUTEROL 2.5 MG/3 ML NEB (ADULT) 20 MG INH (15:30)
[2022-11-21] MEDS: DEXTROSE 10 % IN WATER 100 ML 1200 ML IV (15:33)
--- NOTE | 2022-11-21 16:14 | PC.NURSE ---
Patient complains of leg cramps and is restless in bed. He requests to put his feet over the bedside. I stayed at bedside and allowed patient to dangle legs off of bed for 3xmins. Provider OK with getting patient a recliner to sit in. Patient back in bed with side rails up now.
[2022-11-21 16:55] LABS: COVID19 -Nasal RAPID Negative (Negative)
--- NOTE | 2022-11-21 17:04 | RT ---
pt kaila Neb tx well, 20mg alb given for high K. at bedside and pt on room air
--- NOTE | 2022-11-21 17:11 | PC.NURSE ---
Set pt up for dinner tray
[2022-11-21 18:20] LABS: BUN Creatinine Ratio 32.4 (6-22); Blood Urea Nitrogen 69 mg/dL (9-20); Calcium 8.3 mg/dL (8.4-10.2); Carbon Dioxide 19 mmol/L (22-32); Chloride 98 mmol/L (98-107); Estimated Glomerular Filt Rate 30 mL/min (>60); Glucose 189 mg/dL (80-110); HEMOLYSIS 19 (0-50); Sodium 128 mmol/L (137-145)
[2022-11-21 18:23] LABS: Potassium 5.9 mmol/L (3.4-5.1)
[2022-11-21] MEDS: SODIUM POLYSTYRENE SULFON/SORB 15 GM/60 ML CUP 30 GM PO (19:51)
[2022-11-21] MEDS: CALCIUM GLUCONATE 4.65 MEQ in SODIUM CHLORIDE 0.9% 50 ML 180 MEQ IV (19:51)
--- NOTE | 2022-11-21 19:57 | PC.NURSE ---
Pt took home medication of pravastatin, metformin, and carvedilol. Okay by provider. Pt also provided with 1/2 egg sandwich and 1 cup of water. Pt and updated on transfer to [facility].
== END 2022-11-21 22:29 | disposition short-term general hospital (02) ==
PROVIDERS: Emergency Medicine; Emergency Provider Emergency Medicine; PCP Family Medicine
DX: I50.9 Heart failure, unspecified (principal); E87.5 Hyperkalemia; R07.9 Chest pain, unspecified; R60.9 Edema, unspecified; Z79.899 Other long term (current) drug therapy; Z20.822 Contact with and (suspected) exposure to COVID-19
CPT/HCPCS: 36415; 71045; 80048; 80053; 82550; 82962; 83690; 83735; 83880; 84484; 85025; 85610; 85730; 87635; 93005; 94640; 96374; 96375; 99285; 99291; C9803; J0612; J1940; J7613